=== PATIENT | female | born 1950 | race Caucasian/White ===

== ENCOUNTER 2020-04-03 06:45 | Inpatient (IN) | payer MEDICARE, OTHER ==
[2020-04-03] VITALS (10 sets, daily range): BP systolic 113–146; BP diastolic 40–51
[~2020-04-03] VITALS: Ht 165.1 cm; Wt 140.3 kg
[2020-04-03] MEDS ORDERED: MORPHINE SULFATE 4 MG/ML VIAL. IV ONE ×2 (07:30→09:15)
[2020-04-03] MEDS ORDERED: ONDANSETRON PF 4 MG/2 ML VIAL. IVP ONE (07:30)
[2020-04-03 07:42] LABS: BILIRUBIN,URINE MODERATE (NEG); CLARITY,URINE CLOUDY; COLOR,URINE AMBER; NITRITE,URINE NEGATIVE (NEG); PROTEIN,URINE 100 mg/dL (NEG-TRACE)
[2020-04-03 07:45] LABS: BASO # 0.1 x10^3/uL (0.0-0.2); BASO % 1 % (0-3); EOS % 1 % (0-3); HEMOGLOBIN 14.9 g/dL (12.0-15.5); LYMPH # 1.5 x10^3/uL (1.0-4.8); LYMPH % 19 % (24-48); MEAN CORPUSCULAR HEMOGLOBIN 31 pg (25-35); MEAN CORPUSCULAR HGB CONC 34 g/dL (31-37); MEAN CORPUSCULAR VOLUME 90 fL (79-100); MONO # 0.7 x10^3/uL (0.0-1.1); MONO % 8 % (0-9); NEUT # 5.8 x10^3/uL (1.8-7.7); NEUT % 72 % (31-73); PLATELET COUNT 244 x10^3/uL (140-400); RED BLOOD COUNT 4.87 x10^6/uL (3.50-5.40); RED CELL DISTRIBUTION WIDTH 14.2 % (11.5-14.5)
[2020-04-03 07:52] LABS: BACTERIA,URINE MANY /HPF (0-FEW); HYALINE CASTS, URINE FEW /HPF; RBC,URINE OCC /HPF (0-2); SQUAMOUS EPITHELIAL CELL,UR MANY /LPF; WBC,URINE 20-40 /HPF (0-4)
[2020-04-03 07:54] LABS: PROTHROMBIN TIME PATIENT 14.1 SEC (11.7-14.0)
[2020-04-03 08:05] LABS: CALCIUM 10.2 mg/dL (8.5-10.1); CREATININE 1.7 mg/dL (0.6-1.0); GFR 29.8
[2020-04-03 08:09] LABS: ALBUMIN 3.9 g/dL (3.4-5.0); TOTAL BILIRUBIN 1.9 mg/dL (0.2-1.0); TOTAL PROTEIN 7.7 g/dL (6.4-8.2)
--- NOTE | 2020-04-03 08:19 | PHYS DOC ---
Past Medical History Past Medical History: Diabetes-Type II, Hypertension, Renal Failure Past Surgical History: No Surgical History Smoking Status: Never Smoker Alcohol Use: None General Adult EDM: Chief Complaint: NAUSEA/VOMITING/DIARRHA HPI: HPI: Patient is a 69 year old female who presents to ER today for evaluation of epigastric abdominal pain associate with nausea vomiting for the last 3 days. Patient says she ate some chicken quesadilla on Thursday night then she started having symptoms. Patient denies any diarrhea, no bowel movement for the last 2 days. Patient denies any fever, no cough, no chest pain. Patient denies being exposed to anybody who tested positive for COVID-19. Review of Systems: Review of Systems: Constitutional: Denies fever or chills. [] Eyes: Denies change in visual acuity. [] HENT: Denies nasal congestion or sore throat. [] Respiratory: Denies cough or shortness of breath. [] Cardiovascular: Denies chest pain or edema. [] GI: Positive for abdominal pain, nausea and vomiting. No diarrhea : Denies dysuria. [] Musculoskeletal: Denies back pain or joint pain. [] Integument: Denies rash. [] Neurologic: Denies headache, focal weakness or sensory changes. [] Endocrine: Denies polyuria or polydipsia. [] Lymphatic: Denies swollen glands. [] Psychiatric: Denies depression or anxiety. [] Heart Score: Risk Factors: Risk Factors: DM, Current or recent (<one month) smoker, HTN, HLP, family history of CAD, obesity. Risk Scores: Score 0 - 3: 2.5% MACE over next 6 weeks - Discharge Home Score 4 - 6: 20.3% MACE over next 6 weeks - Admit for Clinical Observation Score 7 - 10: 72.7% MACE over next 6 weeks - Early Invasive Strategies Current Medications: Current Medications Medications (Trade) Dose Ordered Sig/Bethany Start Time Stop Time Status Last Admin Dose Admin Morphine Sulfate (Morphine Sulfate) 4 mg 1X ONCE 04/03/20 07:30 04/03/20 07:31 DC 04/03/20 07:47 4 MG Ondansetron HCl (Zofran) 8 mg 1X ONCE 04/03/20 07:30 04/03/20 07:31 DC 04/03/20 07:44 8 MG Allergies: Allergies: Allergies Coded Allergies Type Severity Reaction Last Updated Verified No Known Drug Allergies 04/03/20 No Physical Exam: PE: Constitutional: Well developed, well nourished, no acute distress, non-toxic appearance. [] HENT: Normocephalic, atraumatic, bilateral external ears normal, oropharynx moist, no oral exudates, nose normal. [] Eyes: PERRLA, EOMI, conjunctiva normal, no discharge. [] Neck: Normal range of motion, no tenderness, supple, no stridor. [] Cardiovascular:Heart rate regular rhythm, no murmur [] Lungs & Thorax: Bilateral breath sounds clear to auscultation [] Abdomen: Decrease Bowel sounds , soft, there is tenderness in epigastric area, no masses, no pulsatile masses. [] Skin: Warm, dry, no erythema, no rash. [] Back: No tenderness, no CVA tenderness. [] Extremities: No tenderness, no cyanosis, no clubbing, ROM intact, no edema. [] Neurologic: Alert and oriented X 3, normal motor function, normal sensory function, no focal deficits noted. [] Psychologic: Affect normal, judgement normal, mood normal. [] Current Patient Data: Labs: Laboratory Tests Test 04/03/20 07:20 04/03/20 07:36 Urine Collection Type Void Urine Color Maria Teresa Urine Clarity Cloudy Urine pH 5.0 (<5.0-8.0) Urine Specific [place] >=1.030 (1.000-1.030) Urine Protein 100 mg/dL (NEG-TRACE) Urine Glucose (UA) Negative mg/dL (NEG) Urine Ketones (Stick) Negative mg/dL (NEG) Urine Blood Negative (NEG) Urine Nitrite Negative (NEG) Urine Bilirubin Moderate (NEG) Urine Urobilinogen Dipstick 1.0 mg/dL (0.2 mg/dL) Urine Leukocyte Esterase Small (NEG) Urine RBC Occ /HPF (0-2) Urine WBC 20-40 /HPF (0-4) Urine Squamous Epithelial Cells Many /LPF Urine Bacteria Many /HPF (0-FEW) Urine Hyaline Casts Few /HPF White Blood Count 8.0 x10^3/uL (4.0-11.0) Red Blood Count 4.87 x10^6/uL (3.50-5.40) Hemoglobin 14.9 g/dL (12.0-15.5) Hematocrit 44.0 % (36.0-47.0) Mean Corpuscular Volume 90 fL (79-100) Mean Corpuscular Hemoglobin 31 pg (25-35) Mean Corpuscular Hemoglobin Concent 34 g/dL (31-37) Red Cell Distribution Width 14.2 % (11.5-14.5) Platelet Count 244 x10^3/uL (140-400) Neutrophils (%) (Auto) 72 % (31-73) Lymphocytes (%) (Auto) 19 % (24-48) L Monocytes (%) (Auto) 8 % (0-9) Eosinophils (%) (Auto) 1 % (0-3) Basophils (%) (Auto) 1 % (0-3) Neutrophils # (Auto) 5.8 x10^3/uL (1.8-7.7) Lymphocytes # (Auto) 1.5 x10^3/uL (1.0-4.8) Monocytes # (Auto) 0.7 x10^3/uL (0.0-1.1) Eosinophils # (Auto) 0.0 x10^3/uL (0.0-0.7) Basophils # (Auto) 0.1 x10^3/uL (0.0-0.2) Prothrombin Time 14.1 SEC (11.7-14.0) H Prothrombin Time INR 1.1 (0.8-1.1) Activated Partial Thromboplast Time 23 SEC (24-38) L Sodium Level 137 mmol/L (136-145) Potassium Level 4.0 mmol/L (3.5-5.1) Chloride Level 97 mmol/L (98-107) L Carbon Dioxide Level 25 mmol/L (21-32) Anion Gap 15 (6-14) H Blood Urea Nitrogen 36 mg/dL (7-20) H Creatinine 1.7 mg/dL (0.6-1.0) H Estimated GFR (Cockcroft-Gault) 29.8 BUN/Creatinine Ratio 21 (6-20) H Glucose Level 259 mg/dL (70-99) H Calcium Level 10.2 mg/dL (8.5-10.1) H Magnesium Level 2.0 mg/dL (1.8-2.4) Total Bilirubin 1.9 mg/dL (0.2-1.0) H Aspartate Amino Transferase (AST) 26 U/L (15-37) Alanine Aminotransferase (ALT) 30 U/L (14-59) Alkaline Phosphatase 37 U/L (46-116) L Troponin I Quantitative < 0.017 ng/mL (0.000-0.055) Total Protein 7.7 g/dL (6.4-8.2) Albumin 3.9 g/dL (3.4-5.0) Albumin/Globulin Ratio 1.0 (1.0-1.7) Lipase 124 U/L (73-393) Laboratory Tests 04/03/20 07:36 Laboratory Tests 04/03/20 07:36 Vital Signs: Vital Signs Date Time Temp Pulse Resp B/P (MAP) Pulse Ox O2 Delivery O2 Flow Rate FiO2 04/03/20 07:47 18 91 Room Air 04/03/20 07:07 98.9 92 190/74 (112) 98.9 EKG: EKG: [] Radiology/Procedures: Radiology/Procedures: [][facility] [address] [place], [place] [id number] IMAGING REPORT Signed PATIENT: RICHIE PERALTA ACCOUNT: [id number] : 1950 LOCATION: ER AGE: 69 SEX: F EXAM STATUS: REG ER ORD. PHYSICIAN: ELMIRA DIEHL DO REASON: ABDOMINAL PAIN WITH NAUSEA AND VOMITING SINCE 3 DAYS AGO PROCEDURE: CT ABDOMEN PELVIS WO CONTRAST EXAM: Abdomen and pelvis CT without intravenous contrast. HISTORY: Pain. Nausea and vomiting. TECHNIQUE: Computed tomographic images of the abdomen and pelvis were obtained without contrast. Multiplanar reformatting was performed. *One or more of the following individualized dose reduction techniques were utilized for this examination: 1. Automated exposure control. 2. Adjustment of the mA and/or kV according to patient size. 3. Use of iterative reconstruction technique. COMPARISON: None. FINDINGS: Evaluation of the lower thorax demonstrates linear left lower lobe atelectasis or scarring. There is posterior dependent atelectasis. There is trace pericardial fluid. No suspicious hepatic lesion is seen. The gallbladder is surgically absent. There is common bile duct dilatation likely due to reservoir effect status post cholecystectomy. The pancreas, spleen, adrenal glands and kidneys are unremarkable. There are distended air and fluid-filled loops of proximal and mid small bowel extending to a large infraumbilical hernia containing a loop of small bowel in segment of transverse colon, consistent with mechanical bowel obstruction. There is stranding within the herniated fat suggesting a component of fat incarceration. The hernia defect measures approximately 6.5 cm in maximum dimension and the hernia sac measures 18 cm in maximum dimension. There is also a fat-containing umbilical hernia measuring 3.3 cm and fat-containing left periumbilical hernia measuring 5.6 cm. There are few small fat-containing supraumbilical hernias. The small bowel is decompressed distal to the level of the hernia. There is gas and stool within the colon. The urinary bladder is empty. The uterus is absent. No adnexal mass is seen. There is no lymphadenopathy. The aorta is normal in caliber. There are degenerative changes involving the spine and both hips. IMPRESSION: 1. Small bowel obstruction secondary to a large infraumbilical hernia containing fat, a loop of small bowel and segment of transverse colon. The hernia sac measures 18 cm in maximum dimension. 2. Small fat-containing umbilical, periumbilical and supra umbilical hernias. Electronically signed by: Winter Sampson MD (04/03/2020 8:51 AM) [id number] DICTATED and SIGNED BY: WINTER SAMPSON MD DATE: 04/03/20 0851 Course & Med Decision Making: Course & Med Decision Making Pertinent Labs and Imaging studies reviewed. (See chart for details) Patient is a 69-year-old female who was evaluated in the ER due to abdominal pain with nausea vomiting. CT scan her abdomen pelvis showed she has a small bowel obstruction due to umbilical hernia. Patient will be admitted to hospital, general surgery be consulted. NG tube was placed. Dragon Disclaimer: Dragon Disclaimer: This electronic medical record was generated, in whole or in part, using a voice recognition dictation system. Departure Departure Impression: Primary Impression: Small bowel obstruction Additional Impression: Umbilical hernia Disposition: ADMITTED INPATIENT Admitting Physician: HERMILO (Dr. Davis) Condition: STABLE Referrals: TRACIE PRITCHARD MD (PCP) Justicifation of Admission Dx: Justifications for Admission: Justification of Admission Dx: N/A ELMIRA DIEHL DO Apr 03, 2020 08:19
--- NOTE | 2020-04-03 08:54 | RAD ---
EXAM: Abdomen and pelvis CT without intravenous contrast. HISTORY: Pain. Nausea and vomiting. TECHNIQUE: Computed tomographic images of the abdomen and pelvis were obtained without contrast. Multiplanar reformatting was performed. *One or more of the following individualized dose reduction techniques were utilized for this examination: 1. Automated exposure control. 2. Adjustment of the mA and/or kV according to patient size. 3. Use of iterative reconstruction technique. COMPARISON: None. FINDINGS: Evaluation of the lower thorax demonstrates linear left lower lobe atelectasis or scarring. There is posterior dependent atelectasis. There is trace pericardial fluid. No suspicious hepatic lesion is seen. The gallbladder is surgically absent. There is common bile duct dilatation likely due to reservoir effect status post cholecystectomy. The pancreas, spleen, adrenal glands and kidneys are unremarkable. There are distended air and fluid-filled loops of proximal and mid small bowel extending to a large infraumbilical hernia containing a loop of small bowel in segment of transverse colon, consistent with mechanical bowel obstruction. There is stranding within the herniated fat suggesting a component of fat incarceration. The hernia defect measures approximately 6.5 cm in maximum dimension and the hernia sac measures 18 cm in maximum dimension. There is also a fat-containing umbilical hernia measuring 3.3 cm and fat-containing left periumbilical hernia measuring 5.6 cm. There are few small fat-containing supraumbilical hernias. The small bowel is decompressed distal to the level of the hernia. There is gas and stool within the colon. The urinary bladder is empty. The uterus is absent. No adnexal mass is seen. There is no lymphadenopathy. The aorta is normal in caliber. There are degenerative changes involving the spine and both hips. IMPRESSION: 1. Small bowel obstruction secondary to a large infraumbilical hernia containing fat, a loop of small bowel and segment of transverse colon. The hernia sac measures 18 cm in maximum dimension. 2. Small fat-containing umbilical, periumbilical and supra umbilical hernias. Electronically signed by: Winter Rocha MD (04/03/2020 8:51 AM) [id number]
[2020-04-03] MEDS ORDERED: BENZOCAINE ONE 20% MUCOSAL SPRAY. (09:11)
[2020-04-03] MEDS: IV NORMAL SALINE 1000ML BAG 1,000 ML IV SCH (09:22)
[2020-04-03] MEDS ORDERED: BENZOCAINE ONE 20% MUCOSAL SPRAY. MM (09:30)
--- NOTE | 2020-04-03 09:41 | EKG ---
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
[2020-04-03] MEDS: MORPHINE SULFATE 4 MG/ML VIAL. IV PRN ×3 (10:10→23:52)
[2020-04-03] MEDS: ONDANSETRON PF 4 MG/2 ML VIAL. IV PRN ×2 (10:10→17:57)
--- NOTE | 2020-04-03 10:11 | RAD ---
Plain film abdominal examination consisting of 1 view(s) of the abdomen. History: Nasogastric tube placement Comparison: None. Nasogastric tube is seen with tip in the body the stomach. There are multiple prominent loops of small bowel measuring up to 4.1 cm suggesting ileus or obstruction. Electronically signed by: Renato Mendiola MD (04/03/2020 10:08 AM) [id number]
--- NOTE | 2020-04-03 10:14 | PDOC2 ---
WILLY LAGUNAS AGRICULTURAL EQUIPMENT DESIGN ENGINEER 04/03/20 1014: CONSULT Date of Consult Date of Consult DATE: 04/03/20 TIME: 10:01 Reason for Consult Reason for Consult: bowel obstruction Referring Physician Referring Physician: ER Identification/Chief Complaint Chief Complaint abdominal pain Source Source: Chart review, Patient History of Present Illness Reason for Visit: Abdominal pain, nausea and emesis since Thursday. Has been becoming p rogressively worse. Last stool Thursday. Not eating, not improving. Does have hx of umbo hernia repair with mesh Past Medical History Cardiovascular: HTN Endocrine: Diabetes Past Surgical History Past Surgical History: Appendectomy, Cholecystectomy, Hernia Repair Family History Family History: Other (noncontributory to current illness ) Social History No ALCOHOL: none Drugs: None Lives: with Family Current Problem List Problem List Problems Medical Problems: (1) Small bowel obstruction Status: Acute (2) Umbilical hernia Status: Acute Current Medications Current Medications Current Medications Ondansetron HCl (Zofran) 8 mg 1X ONCE IVP Last administered on 04/03/20at 07:44; Start 04/03/20 at 07:30; Stop 04/03/20 at 07:31; Status DC Morphine Sulfate (Morphine Sulfate) 4 mg 1X ONCE IV Last administered on 04/03/20at 07:47; Start 04/03/20 at 07:30; Stop 04/03/20 at 07:31; Status DC Morphine Sulfate (Morphine Sulfate) 4 mg 1X ONCE IV Last administered on 04/03/20at 09:17; Start 04/03/20 at 09:15; Stop 04/03/20 at 09:16; Status DC Benzocaine (Hurricaine One) 1 spray STK-MED ONCE .ROUTE ; Start 04/03/20 at 09:11; Stop 04/03/20 at 09:11; Status DC Benzocaine (Hurricaine One) 1 spray 1X ONCE MM Last administered on 04/03/20at 09:21; Start 04/03/20 at 09:30; Stop 04/03/20 at 09:31; Status DC Ondansetron HCl (Zofran) 4 mg PRN Q8HRS PRN IV NAUSEA/VOMITING; Start 04/03/20 at 09:30; Stop 04/04/20 at 09:29 Morphine Sulfate (Morphine Sulfate) 4 mg PRN Q2HR PRN IV PAIN; Start 04/03/20 at 09:30; Stop 04/04/20 at 09:29 Sodium Chloride 1,000 ml @ 75 mls/hr [id number] IV Last administered on 04/03/20at 09:22; Start 04/03/20 at 09:17; Stop 04/04/20 at 09:16 Allergies Allergies: Coded Allergies: No Known Drug Allergies (Unverified , 04/03/20) ROS General: YES: Fatigue, Malaise; No: Chills PSYCHOLOGICAL ROS: No: Anxiety, Depression Eyes: No Blurry vision, No Double vision HEENT: No: Heacaches, Sore Throat Hematological and Lymphatic: No: Bleeding Problems, Blood Clots Respiratory: No: Cough, Shortness of breath Cardiovascular: No Chest Pain, No Palpitations Gastrointestinal: Yes Other (ses hpi) Genitourinary: No Dysuria, No Retention Musculoskeletal: No Joint Pain, No Muscle Pain Neurological: No Impaired Coord/balance, No Numbness/Tingling Skin: No Pruritus, No Rash Physical Exam General: Alert, Oriented X3, Cooperative HEENT: Other (NG in place) Lungs: Clear to auscultation, Normal air movement Heart: Regular rate, Normal S1, Normal S2 Abdomen: Soft, Other (obese abdomen, Ttp umbilical area, unable to palpate hernia ) Extremities: No clubbing, No cyanosis Skin: No rashes, No breakdown Neuro: Normal speech, Sensation intact Psych/Mental Status: Mental status NL, Mood NL MUSCULOSKELETAL: No deformity, No swelling Vitals VITALS Vital Signs Date Time Temp Pulse Resp B/P (MAP) Pulse Ox O2 Delivery O2 Flow Rate FiO2 04/03/20 09:17 18 94 Room Air 04/03/20 07:07 98.9 92 190/74 (112) 98.9 Labs Labs Laboratory Tests Test 04/03/20 07:20 04/03/20 07:36 Urine Collection Type Void Urine Color Maria Teresa Urine Clarity Cloudy Urine pH 5.0 (<5.0-8.0) Urine Specific [place] >=1.030 (1.000-1.030) Urine Protein 100 mg/dL (NEG-TRACE) Urine Glucose (UA) Negative mg/dL (NEG) Urine Ketones (Stick) Negative mg/dL (NEG) Urine Blood Negative (NEG) Urine Nitrite Negative (NEG) Urine Bilirubin Moderate (NEG) Urine Urobilinogen Dipstick 1.0 mg/dL (0.2 mg/dL) Urine Leukocyte Esterase Small (NEG) Urine RBC Occ /HPF (0-2) Urine WBC 20-40 /HPF (0-4) Urine Squamous Epithelial Cells Many /LPF Urine Bacteria Many /HPF (0-FEW) Urine Hyaline Casts Few /HPF White Blood Count 8.0 x10^3/uL (4.0-11.0) Red Blood Count 4.87 x10^6/uL (3.50-5.40) Hemoglobin 14.9 g/dL (12.0-15.5) Hematocrit 44.0 % (36.0-47.0) Mean Corpuscular Volume 90 fL (79-100) Mean Corpuscular Hemoglobin 31 pg (25-35) Mean Corpuscular Hemoglobin Concent 34 g/dL (31-37) Red Cell Distribution Width 14.2 % (11.5-14.5) Platelet Count 244 x10^3/uL (140-400) Neutrophils (%) (Auto) 72 % (31-73) Lymphocytes (%) (Auto) 19 % (24-48) Monocytes (%) (Auto) 8 % (0-9) Eosinophils (%) (Auto) 1 % (0-3) Basophils (%) (Auto) 1 % (0-3) Neutrophils # (Auto) 5.8 x10^3/uL (1.8-7.7) Lymphocytes # (Auto) 1.5 x10^3/uL (1.0-4.8) Monocytes # (Auto) 0.7 x10^3/uL (0.0-1.1) Eosinophils # (Auto) 0.0 x10^3/uL (0.0-0.7) Basophils # (Auto) 0.1 x10^3/uL (0.0-0.2) Prothrombin Time 14.1 SEC (11.7-14.0) Prothromb Time International Ratio 1.1 (0.8-1.1) Activated Partial Thromboplast Time 23 SEC (24-38) Sodium Level 137 mmol/L (136-145) Potassium Level 4.0 mmol/L (3.5-5.1) Chloride Level 97 mmol/L (98-107) Carbon Dioxide Level 25 mmol/L (21-32) Anion Gap 15 (6-14) Blood Urea Nitrogen 36 mg/dL (7-20) Creatinine 1.7 mg/dL (0.6-1.0) Estimated GFR (Cockcroft-Gault) 29.8 BUN/Creatinine Ratio 21 (6-20) Glucose Level 259 mg/dL (70-99) Calcium Level 10.2 mg/dL (8.5-10.1) Magnesium Level 2.0 mg/dL (1.8-2.4) Total Bilirubin 1.9 mg/dL (0.2-1.0) Aspartate Amino Transf (AST/SGOT) 26 U/L (15-37) Alanine Aminotransferase (ALT/SGPT) 30 U/L (14-59) Alkaline Phosphatase 37 U/L (46-116) Troponin I Quantitative < 0.017 ng/mL (0.000-0.055) Total Protein 7.7 g/dL (6.4-8.2) Albumin 3.9 g/dL (3.4-5.0) Albumin/Globulin Ratio 1.0 (1.0-1.7) Lipase 124 U/L (73-393) Laboratory Tests Test 04/03/20 07:20 04/03/20 07:36 Urine Collection Type Void Urine Color Maria Teresa Urine Clarity Cloudy Urine pH 5.0 (<5.0-8.0) Urine Specific [place] >=1.030 (1.000-1.030) Urine Protein 100 mg/dL (NEG-TRACE) Urine Glucose (UA) Negative mg/dL (NEG) Urine Ketones (Stick) Negative mg/dL (NEG) Urine Blood Negative (NEG) Urine Nitrite Negative (NEG) Urine Bilirubin Moderate (NEG) Urine Urobilinogen Dipstick 1.0 mg/dL (0.2 mg/dL) Urine Leukocyte Esterase Small (NEG) Urine RBC Occ /HPF (0-2) Urine WBC 20-40 /HPF (0-4) Urine Squamous Epithelial Cells Many /LPF Urine Bacteria Many /HPF (0-FEW) Urine Hyaline Casts Few /HPF White Blood Count 8.0 x10^3/uL (4.0-11.0) Red Blood Count 4.87 x10^6/uL (3.50-5.40) Hemoglobin 14.9 g/dL (12.0-15.5) Hematocrit 44.0 % (36.0-47.0) Mean Corpuscular Volume 90 fL (79-100) Mean Corpuscular Hemoglobin 31 pg (25-35) Mean Corpuscular Hemoglobin Concent 34 g/dL (31-37) Red Cell Distribution Width 14.2 % (11.5-14.5) Platelet Count 244 x10^3/uL (140-400) Neutrophils (%) (Auto) 72 % (31-73) Lymphocytes (%) (Auto) 19 % (24-48) Monocytes (%) (Auto) 8 % (0-9) Eosinophils (%) (Auto) 1 % (0-3) Basophils (%) (Auto) 1 % (0-3) Neutrophils # (Auto) 5.8 x10^3/uL (1.8-7.7) Lymphocytes # (Auto) 1.5 x10^3/uL (1.0-4.8) Monocytes # (Auto) 0.7 x10^3/uL (0.0-1.1) Eosinophils # (Auto) 0.0 x10^3/uL (0.0-0.7) Basophils # (Auto) 0.1 x10^3/uL (0.0-0.2) Prothrombin Time 14.1 SEC (11.7-14.0) Prothromb Time International Ratio 1.1 (0.8-1.1) Activated Partial Thromboplast Time 23 SEC (24-38) Sodium Level 137 mmol/L (136-145) Potassium Level 4.0 mmol/L (3.5-5.1) Chloride Level 97 mmol/L (98-107) Carbon Dioxide Level 25 mmol/L (21-32) Anion Gap 15 (6-14) Blood Urea Nitrogen 36 mg/dL (7-20) Creatinine 1.7 mg/dL (0.6-1.0) Estimated GFR (Cockcroft-Gault) 29.8 BUN/Creatinine Ratio 21 (6-20) Glucose Level 259 mg/dL (70-99) Calcium Level 10.2 mg/dL (8.5-10.1) Magnesium Level 2.0 mg/dL (1.8-2.4) Total Bilirubin 1.9 mg/dL (0.2-1.0) Aspartate Amino Transf (AST/SGOT) 26 U/L (15-37) Alanine Aminotransferase (ALT/SGPT) 30 U/L (14-59) Alkaline Phosphatase 37 U/L (46-116) Troponin I Quantitative < 0.017 ng/mL (0.000-0.055) Total Protein 7.7 g/dL (6.4-8.2) Albumin 3.9 g/dL (3.4-5.0) Albumin/Globulin Ratio 1.0 (1.0-1.7) Lipase 124 U/L (73-393) Assessment/Plan Assessment/Plan SBO, related to hernia obese -BMI 49.9 NG, bowel rest covid taken will have Dr Clarke review TANYA CLARKE MD 04/03/20 1347: CONSULT Assessment/Plan Assessment/Plan Patient seen and examined by me. Morbidly obese female with complaints of nausea vomiting for 2 days. Seen in the emergency department CT scan was performed which showed incarcerated incisional hernia from previous umbilical hernia repair. Plan for robotic assisted laparoscopic ventral hernia repair with mesh possible open this is all explained to the patient. Agree with Baldev assessment and plan WILLY LAGUNAS APRN Apr 03, 2020 10:14 TANYA CLARKE MD Apr 03, 2020 13:47
[2020-04-03] MEDS ORDERED: PROCHLORPERAZINE 10 MG/2 ML VIAL. IV PRN (10:45)
[2020-04-03] MEDS ORDERED: LIDOCAINE 1% PF 2 ML VIAL. ID PRN (10:45)
[2020-04-03] MEDS ORDERED: IV RINGERS,LACTATED 1000ML 1,000 ML IV SCH (10:45)
[2020-04-03] MEDS ORDERED: HYDROmorphone 2 MG/ML VIAL IV ONE (11:00)
[2020-04-03] MEDS ORDERED: DEXAMETHASONE SOD PHOS 4 MG/ML VIAL ONE (12:52)
[2020-04-03] MEDS ORDERED: PROPOFOL 10 MG/ML (20ML) VIAL. IV ONE (12:52)
[2020-04-03] MEDS ORDERED: ONDANSETRON PF 4 MG/2 ML VIAL. ONE (12:52)
[2020-04-03] MEDS ORDERED: fentaNYL PF VIAL 100 MCG/2 ML VIAL ONE ×3 (12:52→17:23)
[2020-04-03] MEDS ORDERED: LIDOCAINE 1% PF 5 ML VIAL. ONE (12:52)
[2020-04-03] MEDS ORDERED: ROCURONIUM 100 MG/10 ML VIAL. ONE (12:54)
[2020-04-03] MEDS ORDERED: BUPIVACAINE-EPI 0.25%-1:200000 MPF 30 ML VIAL. ONE (13:08)
[2020-04-03] MEDS ORDERED: MINERAL OIL for SURGERY 10 ML VIAL. MC ONE (13:08)
[2020-04-03] MEDS ORDERED: ceFAZolin SODIUM 3 GM in IV DEXTROSE 5% 100ML 100 ML IV ONE (14:00)
[2020-04-03] MEDS ORDERED: GLYCOPYRROLATE 1 MG/5 ML VIAL. ONE (14:31)
[2020-04-03] MEDS ORDERED: SEVOFLURANE > 120 MINUTES. IH ONE (14:38)
[2020-04-03] MEDS ORDERED: ROCURONIUM 50 MG/5 ML VIAL. ONE (14:53)
--- NOTE | 2020-04-03 16:07 | PDOC4 ---
Operative Note Operative Note Date: April [id number] at 1600 Preoperative diagnosis: Incarcerated recurrent incisional hernia Postoperative diagnosis: Same Procedure: Diagnostic laparoscopy converted to open laparotomy with repair of incarcerated ventral hernia and mesh placement Surgeon: Julio Specimen: Hernia sac Dictation: Patient is a 69-year-old female admitted to the hospital with abdominal pain nausea vomiting CT scan showing a incarcerated incisional hernia causing bowel obstruction. Procedure of laparoscopic repair of hernia was explained to the patient detail risk-benefit were also discussed including bleeding infection possibility of open repair. Patient seemed to understand and gave both verbal and written consent to have the procedure performed. Patient was taken to the operating room placed in supine position general anesthesia was initiated once patient was sleeping intubated her abdomen was prepped and draped usual sterile fashion using ChloraPrep. An area in the left upper quadrant was injected quarter percent Marcaine with epinephrine incision was made with 11 blade scalpel and a 5 mm Visiport was placed under direct physician in the abdomen creating pneumoperitoneum at this point a 5 mm camera was placed within the abdomen was noted there was quite a few adhesions to the anterior abdominal wall as well as bowel within the anterior abdominal wall. 2 more ports were placed under direct visualization and some of the adhesions were taken down with blunt and sharp dissection it was determined at this point there was too much bowel incarcerated within the hernia defect as well as adhesions made it difficult to do laparoscopically was felt at this point was converted to open procedure. Midline incision was made with 10 blade scalpel is carried down through the subcutaneous tissues electrocautery right hemostasis encountering the hernia sac this was cleared off its adherent tissues the hernia sac was then opened with Metzenbaum scissors and further open electrocautery and great care to protect the bowel within the hernia sac. The hernia sac was then excised with electrocautery and sent for pathology the hernia contents were reduced to the abdomen and the fascial defect was closed with a running looped 0 PDS. Once this was closed a phasic's 6 x 8 mesh was placed over the closure this was sewn into place with single interrupted 0 Ethibond. The deep subcutaneous layer was then closed with running 0 Vicryl subcutaneous layer more superficially was closed with a 3-0 Vicryl skin was reapproximated for subcuticular Monocryl Mastisol Steri-Strips and 4 x 4's Medipore tape were applied as a dressing. Patient was awakened and extubated in operating room taken to recovery in stable condition all sponge instrument needle counts listed as correct estimated blood loss 30 mL. TANYA CLARKE MD Apr 03, 2020 16:07
[2020-04-03] MEDS ORDERED: MORPHINE SULFATE 4 MG/ML VIAL. IV PRN (16:30)
[2020-04-03] MEDS ORDERED: HYDROmorphone 2 MG/ML VIAL IV PRN (16:30)
[2020-04-03] MEDS ORDERED: INSULIN LISPRO 100 UNIT/ML 3ML VIAL for OP,RR ONLY. SQ PRN (16:30)
[2020-04-03] MEDS ORDERED: MORPHINE SULFATE 2 MG/ML VIAL. IV PRN (16:30)
[2020-04-03] MEDS ORDERED: fentaNYL PF VIAL 100 MCG/2 ML VIAL IV PRN (16:30)
[2020-04-03] MEDS: fentaNYL PF VIAL 100 MCG/2 ML VIAL IV PRN ×2 (17:26→17:34)
[2020-04-03] MEDS ORDERED: LISI-334 PO (18:12)
[2020-04-03] MEDS ORDERED: DULA0.75 SQ (18:12)
[2020-04-03] MEDS ORDERED: ATOR20TA PO (18:12)
[2020-04-03] MEDS ORDERED: INSU100C4 SQ (18:12)
[2020-04-03] MEDS ORDERED: INSU100I13 SQ (18:12)
[2020-04-04 03:00] VITALS: BP 105/41
[2020-04-04] MEDS: ONDANSETRON PF 4 MG/2 ML VIAL. IV PRN (03:19)
[2020-04-04] MEDS: IV NORMAL SALINE 1000ML BAG 1,000 ML IV SCH (03:23)
[2020-04-04 07:05] VITALS: BP 120/43
[2020-04-04] MEDS: MORPHINE SULFATE 4 MG/ML VIAL. IV PRN (07:28)
--- NOTE | 2020-04-04 09:49 | PDOC ---
SURGICAL PROGRESS NOTE Subjective Patient doing well this morning minimal pain no nausea Vital Signs Vital Signs Date Time Temp Pulse Resp B/P (MAP) Pulse Ox O2 Delivery O2 Flow Rate FiO2 04/04/20 08:11 Nasal Cannula 3.0 04/04/20 07:28 94 04/04/20 07:05 98.9 84 20 120/43 (68) 98.9 I&O Intake and Output 04/04/20 07:00 Intake Total 3700 ml Output Total 1060 ml Balance 2640 ml Intake Oral 0 ml IV Total 2100 ml Other 1600 ml Output Urine Total 230 ml Gastric Drainage Total 800 ml Estimated Blood Loss 30 ml PATIENT HAS A JANE: Yes General: Alert, Oriented X3, Cooperative, mild distress Abdomen: Normal bowel sounds, Soft, Other (Mild incisional tenderness wound clean dry and intact) Labs Laboratory Tests Test 04/03/20 07:20 04/03/20 07:36 04/03/20 11:14 04/03/20 14:48 Urine Collection Type Void Urine Color Maria Teresa Urine Clarity Cloudy Urine pH 5.0 (<5.0-8.0) Urine Specific [place] >=1.030 (1.000-1.030) Urine Protein 100 mg/dL (NEG-TRACE) Urine Glucose (UA) Negative mg/dL (NEG) Urine Ketones (Stick) Negative mg/dL (NEG) Urine Blood Negative (NEG) Urine Nitrite Negative (NEG) Urine Bilirubin Moderate (NEG) Urine Urobilinogen Dipstick 1.0 mg/dL (0.2 mg/dL) Urine Leukocyte Esterase Small (NEG) Urine RBC Occ /HPF (0-2) Urine WBC 20-40 /HPF (0-4) Urine Squamous Epithelial Cells Many /LPF Urine Bacteria Many /HPF (0-FEW) Urine Hyaline Casts Few /HPF White Blood Count 8.0 x10^3/uL (4.0-11.0) Red Blood Count 4.87 x10^6/uL (3.50-5.40) Hemoglobin 14.9 g/dL (12.0-15.5) Hematocrit 44.0 % (36.0-47.0) Mean Corpuscular Volume 90 fL (79-100) Mean Corpuscular Hemoglobin 31 pg (25-35) Mean Corpuscular Hemoglobin Concent 34 g/dL (31-37) Red Cell Distribution Width 14.2 % (11.5-14.5) Platelet Count 244 x10^3/uL (140-400) Neutrophils (%) (Auto) 72 % (31-73) Lymphocytes (%) (Auto) 19 % (24-48) Monocytes (%) (Auto) 8 % (0-9) Eosinophils (%) (Auto) 1 % (0-3) Basophils (%) (Auto) 1 % (0-3) Neutrophils # (Auto) 5.8 x10^3/uL (1.8-7.7) Lymphocytes # (Auto) 1.5 x10^3/uL (1.0-4.8) Monocytes # (Auto) 0.7 x10^3/uL (0.0-1.1) Eosinophils # (Auto) 0.0 x10^3/uL (0.0-0.7) Basophils # (Auto) 0.1 x10^3/uL (0.0-0.2) Prothrombin Time 14.1 SEC (11.7-14.0) Prothromb Time International Ratio 1.1 (0.8-1.1) Activated Partial Thromboplast Time 23 SEC (24-38) Sodium Level 137 mmol/L (136-145) Potassium Level 4.0 mmol/L (3.5-5.1) Chloride Level 97 mmol/L (98-107) Carbon Dioxide Level 25 mmol/L (21-32) Anion Gap 15 (6-14) Blood Urea Nitrogen 36 mg/dL (7-20) Creatinine 1.7 mg/dL (0.6-1.0) Estimated GFR (Cockcroft-Gault) 29.8 BUN/Creatinine Ratio 21 (6-20) Glucose Level 259 mg/dL (70-99) Calcium Level 10.2 mg/dL (8.5-10.1) Magnesium Level 2.0 mg/dL (1.8-2.4) Total Bilirubin 1.9 mg/dL (0.2-1.0) Aspartate Amino Transf (AST/SGOT) 26 U/L (15-37) Alanine Aminotransferase (ALT/SGPT) 30 U/L (14-59) Alkaline Phosphatase 37 U/L (46-116) Troponin I Quantitative < 0.017 ng/mL (0.000-0.055) Total Protein 7.7 g/dL (6.4-8.2) Albumin 3.9 g/dL (3.4-5.0) Albumin/Globulin Ratio 1.0 (1.0-1.7) Lipase 124 U/L (73-393) SARS-CoV-2 Antigen (Rapid) Negative (NEGATIVE) Glucose (Fingerstick) 224 mg/dL (70-99) Test 04/03/20 16:46 04/03/20 21:10 04/04/20 07:46 Glucose (Fingerstick) 197 mg/dL (70-99) 225 mg/dL (70-99) 271 mg/dL (70-99) Laboratory Tests Test 04/03/20 11:14 04/03/20 14:48 04/03/20 16:46 04/03/20 21:10 SARS-CoV-2 Antigen (Rapid) Negative (NEGATIVE) Glucose (Fingerstick) 224 mg/dL (70-99) 197 mg/dL (70-99) 225 mg/dL (70-99) Test 04/04/20 07:46 Glucose (Fingerstick) 271 mg/dL (70-99) Problem List Problems Medical Problems: (1) Small bowel obstruction Status: Acute (2) Umbilical hernia Status: Acute Assessment/Plan Status post laparotomy with repair of recurrent incisional hernia Will DC NG tube Jane awaiting return of bowel function Supportive care Justicifation of Admission Dx: Justifications for Admission: Justification of Admission Dx: N/A TANYA CLARKE MD Apr 04, 2020 09:49
[2020-04-04 11:00] VITALS: BP 126/46
--- NOTE | 2020-04-04 11:37 | NUR ---
SW following. Discussed with RN, pt from home with , had emergency surgery yesterday. Pt is NPO, awaiting return of bowel function. RN advised no SW needs at this time, SW will continue to follow.
--- NOTE | 2020-04-04 12:40 | NUR ---
Dr. Susan staples re: BS [id number].
--- NOTE | 2020-04-04 12:56 | NUR ---
Dr. Lowe paged re: BS [id number]
--- NOTE | 2020-04-04 13:00 | NUR ---
Dr. Lowe returned call, telephone orders received.
[2020-04-04] MEDS ORDERED: DEXTROSE 50% 25 GM / 50ML DISP.SYRIN. IV PRN (13:15)
[2020-04-04] MEDS: INSULIN LISPRO 300 UNITS/3 ML VIAL. SQ SCH ×2 (13:25→17:54)
[2020-04-04 15:00] VITALS: BP 115/37
--- NOTE | 2020-04-04 17:29 | PDOC1 ---
History and Physical Date of Admission Date of Admission 04/04/2020 Identification/Chief Complaint Chief Complaint Hoda zelaya Source Source: Chart review, Patient History of Present Illness History of Present Illness Patient is is 69-year-old female with past medical history of diabetes and essential hypertension who was in her usual state of health until Thursday when she started experiencing abdominal discomfort associated with nausea and emesis. The pain is crampy in nature 10 out of 10 intensity intermittently, the patient had an associated nausea and vomiting no diarrhea no dietary transgressions have been reported. The patient denied any travels outside this area. Patient unfortunately has a history of an umbilical hernia repair with a mesh which most likely is the culprit for the bowel obstruction that is noted on imaging studies. Patient was taken to the OR by her surgical services assistant quite prompt and she has been seen postoperative. At the time of this note the patient is in no acute distress she is quite happy that her NG tube has been discontinued. Patient denied any fever chills diaphoresis no headache no upper respiratory tract infection symptoms no cough sputum production no chest pain or palpitations have been voiced. The patient denies any urinary symptoms, patient feels better compared to admission. Plan of care has been explained detail and all of her concerns were addressed to the best of my abilities Past Medical History Cardiovascular: HTN Endocrine: Diabetes Past Surgical History Past Surgical History: Appendectomy, Cholecystectomy, Hernia Repair Family History Family History: Other (noncontributory to current illness ) Social History Smoke: No ALCOHOL: none Drugs: None Current Problem List Problem List Problems Medical Problems: (1) Small bowel obstruction Status: Acute (2) Umbilical hernia Status: Acute Current Medications Current Medications Current Medications Medications (Trade) Dose Ordered Sig/Bethany Start Time Stop Time Status Last Admin Dose Admin Benzocaine (Hurricaine One) 1 spray 1X ONCE 04/03/20 09:30 04/03/20 09:31 DC 04/03/20 09:21 1 SPRAY Bupivacaine HCl/ Epinephrine Bitart (Sensorcaine-Epi 0.25%-1:[id number] Mpf) 30 ml STK-MED ONCE 04/03/20 13:08 04/03/20 13:08 DC 04/03/20 14:28 10 ML Cefazolin Sodium 3 gm/Dextrose 100 ml @ 200 mls/hr 1X PREOP ONCE 04/03/20 14:00 04/03/20 14:29 DC 04/03/20 14:22 200 MLS/HR Dexamethasone Sodium Phosphate (Decadron) 4 mg STK-MED ONCE 04/03/20 12:52 04/03/20 12:52 DC Dextrose (Dextrose 50%-Water Syringe) 12.5 gm PRN Q15MIN PRN 04/04/20 13:15 Fentanyl Citrate (Fentanyl 2ml Vial) 100 mcg STK-MED ONCE 04/03/20 17:23 04/03/20 17:24 DC Glycopyrrolate (Robinul) 1 mg STK-MED ONCE 04/03/20 14:31 04/03/20 14:31 DC Hydromorphone HCl (Dilaudid) 0.5 mg PRN Q10MIN PRN 04/03/20 16:30 04/04/20 16:29 DC Insulin Human Lispro (HumaLOG VIAL for OP,RR ONLY) 0-10 units PRN Q1HR PRN 04/03/20 16:30 04/04/20 16:29 DC 04/03/20 17:09 4 UNIT Insulin Human Lispro (HumaLOG) 0-7 UNITS TIDWMEALS 04/04/20 13:10 04/04/20 13:25 3 UNITS Lidocaine HCl (Xylocaine-Mpf 1% 2ml Vial) 2 ml PRN 1X PRN 04/03/20 10:45 04/04/20 10:44 DC Lidocaine HCl (Xylocaine-Mpf 1% 5ml Vial) 5 ml STK-MED ONCE 04/03/20 12:52 04/03/20 12:52 DC Mineral Oil (Muri-Lube) 10 ml STK-MED ONCE 04/03/20 13:08 04/03/20 13:08 DC Morphine Sulfate (Morphine Sulfate) 4 mg PRN Q10MIN PRN 04/03/20 16:30 04/04/20 16:29 DC Ondansetron HCl (Zofran) 4 mg STK-MED ONCE 04/03/20 12:52 04/03/20 12:52 DC Prochlorperazine Edisylate (Compazine) 5 mg PACU PRN PRN 04/03/20 10:45 04/04/20 10:44 DC Propofol (Diprivan) 200 mg STK-MED ONCE 04/03/20 12:52 04/03/20 12:52 DC Ringer's Solution 1,000 ml @ 30 mls/hr Q24H 04/03/20 10:45 04/03/20 22:44 DC 04/03/20 13:00 30 MLS/HR Rocuronium [place] (Zemuron) 50 mg STK-MED ONCE 04/03/20 14:53 04/03/20 14:53 DC Sevoflurane (Ultane) 90 ml STK-MED ONCE 04/03/20 14:38 04/03/20 14:38 DC Sodium Chloride 1,000 ml @ 75 mls/hr [id number] 04/03/20 09:17 04/04/20 09:16 DC 04/04/20 03:23 75 MLS/HR Allergies Allergies Allergies Coded Allergies Type Severity Reaction Last Updated Verified No Known Drug Allergies 04/03/20 No ROS Review of System CONSTITUTIONAL: No fever or chills EYES: No recent changes SKIN: No rash or itching CARDIOVASCULAR: No chest pain, syncope, palpitations, or edema RESPIRATORY: No SOB or cough GASTROINTESTINAL: No nausea, vomiting or abdominal pain NEUROLOGICAL: No headaches or weakness ENDOCRINE: No cold or heat intolerance GENITOURINARY: No urgency or frequency of urination MUSCULOSKELETAL: No back pain or joint pain LYMPHATICS: No enlarged lymph nodes PSYCHIATRIC: No anxiety or depression Physical Exam Physical Exam GEN.: No apparent distress. Alert and oriented. HEENT: Head is normocephalic, atraumatic NECK: Supple. LUNGS: Clear to auscultation. HEART: RRR, S1, S2 present. Peripheral pulses intact ABDOMEN: Soft, nontender. Positive bowel sounds. EXTREMITIES: Without any cyanosis. NEUROLOGIC: Normal speech, normal tone PSYCHIATRIC: Normal affect, normal mood. SKIN: No ulcerations Vitals Vitals Vital Signs Date Time Temp Pulse Resp B/P (MAP) Pulse Ox O2 Delivery O2 Flow Rate FiO2 04/04/20 15:00 99.4 20 20 115/37 (63) 92 Nasal Cannula 99.4 04/04/20 08:11 3.0 Labs Labs Laboratory Tests Test 04/03/20 07:20 04/03/20 07:36 04/03/20 11:14 04/03/20 14:48 Urine Collection Type Void Urine Color Maria Teresa Urine Clarity Cloudy Urine pH 5.0 (<5.0-8.0) Urine Specific [place] >=1.030 (1.000-1.030) Urine Protein 100 mg/dL (NEG-TRACE) Urine Glucose (UA) Negative mg/dL (NEG) Urine Ketones (Stick) Negative mg/dL (NEG) Urine Blood Negative (NEG) Urine Nitrite Negative (NEG) Urine Bilirubin Moderate (NEG) Urine Urobilinogen Dipstick 1.0 mg/dL (0.2 mg/dL) Urine Leukocyte Esterase Small (NEG) Urine RBC Occ /HPF (0-2) Urine WBC 20-40 /HPF (0-4) Urine Squamous Epithelial Cells Many /LPF Urine Bacteria Many /HPF (0-FEW) Urine Hyaline Casts Few /HPF White Blood Count 8.0 x10^3/uL (4.0-11.0) Red Blood Count 4.87 x10^6/uL (3.50-5.40) Hemoglobin 14.9 g/dL (12.0-15.5) Hematocrit 44.0 % (36.0-47.0) Mean Corpuscular Volume 90 fL (79-100) Mean Corpuscular Hemoglobin 31 pg (25-35) Mean Corpuscular Hemoglobin Concent 34 g/dL (31-37) Red Cell Distribution Width 14.2 % (11.5-14.5) Platelet Count 244 x10^3/uL (140-400) Neutrophils (%) (Auto) 72 % (31-73) Lymphocytes (%) (Auto) 19 % (24-48) Monocytes (%) (Auto) 8 % (0-9) Eosinophils (%) (Auto) 1 % (0-3) Basophils (%) (Auto) 1 % (0-3) Neutrophils # (Auto) 5.8 x10^3/uL (1.8-7.7) Lymphocytes # (Auto) 1.5 x10^3/uL (1.0-4.8) Monocytes # (Auto) 0.7 x10^3/uL (0.0-1.1) Eosinophils # (Auto) 0.0 x10^3/uL (0.0-0.7) Basophils # (Auto) 0.1 x10^3/uL (0.0-0.2) Prothrombin Time 14.1 SEC (11.7-14.0) Prothromb Time International Ratio 1.1 (0.8-1.1) Activated Partial Thromboplast Time 23 SEC (24-38) Sodium Level 137 mmol/L (136-145) Potassium Level 4.0 mmol/L (3.5-5.1) Chloride Level 97 mmol/L (98-107) Carbon Dioxide Level 25 mmol/L (21-32) Anion Gap 15 (6-14) Blood Urea Nitrogen 36 mg/dL (7-20) Creatinine 1.7 mg/dL (0.6-1.0) Estimated GFR (Cockcroft-Gault) 29.8 BUN/Creatinine Ratio 21 (6-20) Glucose Level 259 mg/dL (70-99) Calcium Level 10.2 mg/dL (8.5-10.1) Magnesium Level 2.0 mg/dL (1.8-2.4) Total Bilirubin 1.9 mg/dL (0.2-1.0) Aspartate Amino Transf (AST/SGOT) 26 U/L (15-37) Alanine Aminotransferase (ALT/SGPT) 30 U/L (14-59) Alkaline Phosphatase 37 U/L (46-116) Troponin I Quantitative < 0.017 ng/mL (0.000-0.055) Total Protein 7.7 g/dL (6.4-8.2) Albumin 3.9 g/dL (3.4-5.0) Albumin/Globulin Ratio 1.0 (1.0-1.7) Lipase 124 U/L (73-393) SARS-CoV-2 Antigen (Rapid) Negative (NEGATIVE) Glucose (Fingerstick) 224 mg/dL (70-99) Test 04/03/20 16:46 04/03/20 21:10 04/04/20 07:46 04/04/20 11:48 Glucose (Fingerstick) 197 mg/dL (70-99) 225 mg/dL (70-99) 271 mg/dL (70-99) 270 mg/dL (70-99) Laboratory Tests Test 04/03/20 21:10 04/04/20 07:46 04/04/20 11:48 Glucose (Fingerstick) 225 mg/dL (70-99) 271 mg/dL (70-99) 270 mg/dL (70-99) VTE Prophylaxis Ordered VTE Prophylaxis Devices: Yes VTE Pharmacological Prophylaxi: No Assessment/Plan Assessment/Plan Small bowel obstruction Umbilical hernia Status post laparotomy with repair of recurrent incisional hernia Essential hypertension Diabetes mellitus type 2 insulin required Morbid obesity with a BMI of 51 Plan Diet as per product consultant Awaiting for return of bowel function Encourage ambulation Incentive spirometry Resume home medication Reassess in the a.m. Further recommendations based on the clinical course DVT prophylaxis with SCD and teds Justicifation of Admission Dx: Justifications for Admission: Justification of Admission Dx: N/A JG DOMINGUEZ MD Apr 04, 2020 17:29
[2020-04-04 19:53] VITALS: BP 137/48
[2020-04-04 23:00] VITALS: BP 141/50
[2020-04-05 03:00] VITALS: BP 107/49
[2020-04-05 07:00] VITALS: BP 135/49
[2020-04-05] MEDS: INSULIN LISPRO 300 UNITS/3 ML VIAL. SQ SCH ×3 (08:00→18:03)
--- NOTE | 2020-04-05 09:14 | NUR ---
SW following. Discussed with RN, pt still npo, awaiting bowel function. Pt now requiring 4L oxygen, uses CPAP at home. SW will continue to follow.
[2020-04-05 10:50] LABS: BASO % 1 % (0-3); EOS # 0.1 x10^3/uL (0.0-0.7); EOS % 1 % (0-3); HEMATOCRIT 32.5 % (36.0-47.0); HEMOGLOBIN 11.2 g/dL (12.0-15.5); LYMPH # 0.9 x10^3/uL (1.0-4.8); LYMPH % 11 % (24-48); MEAN CORPUSCULAR HEMOGLOBIN 32 pg (25-35); MEAN CORPUSCULAR HGB CONC 34 g/dL (31-37); MEAN CORPUSCULAR VOLUME 92 fL (79-100); MONO % 13 % (0-9); NEUT # 5.9 x10^3/uL (1.8-7.7); NEUT % 74 % (31-73); PLATELET COUNT 181 x10^3/uL (140-400); RED BLOOD COUNT 3.53 x10^6/uL (3.50-5.40); RED CELL DISTRIBUTION WIDTH 14.5 % (11.5-14.5); WHITE BLOOD COUNT 7.9 x10^3/uL (4.0-11.0)
--- NOTE | 2020-04-05 10:58 | PDOC ---
SURGICAL PROGRESS NOTE Subjective Patient doing quite well did have some trouble sleeping last night minimal abdominal pain passing flatus no nausea Vital Signs Vital Signs Date Time Temp Pulse Resp B/P (MAP) Pulse Ox O2 Delivery O2 Flow Rate FiO2 04/05/20 08:00 Nasal Cannula 4.0 04/05/20 07:00 98.3 82 16 135/49 (77) 93 98.3 I&O Intake and Output 04/05/20 07:00 Intake Total 625 ml Output Total 300 ml Balance 325 ml Intake Oral 100 ml Other 525 ml Gastric Drainage Total 300 ml # Voids 4 PATIENT HAS A JANE: No General: Alert, Oriented X3, Cooperative, mild distress Abdomen: Normal bowel sounds, Soft, Other (Mild incisional tenderness wounds clean dry and intact) Labs Laboratory Tests Test 04/03/20 11:14 04/03/20 14:48 04/03/20 16:46 04/03/20 21:10 SARS-CoV-2 Antigen (Rapid) Negative (NEGATIVE) Glucose (Fingerstick) 224 mg/dL (70-99) 197 mg/dL (70-99) 225 mg/dL (70-99) Test 04/04/20 07:46 04/04/20 11:48 04/04/20 17:30 04/04/20 20:39 Glucose (Fingerstick) 271 mg/dL (70-99) 270 mg/dL (70-99) 284 mg/dL (70-99) 317 mg/dL (70-99) Test 04/05/20 10:45 White Blood Count 7.9 x10^3/uL (4.0-11.0) Red Blood Count 3.53 x10^6/uL (3.50-5.40) Hemoglobin 11.2 g/dL (12.0-15.5) Hematocrit 32.5 % (36.0-47.0) Mean Corpuscular Volume 92 fL (79-100) Mean Corpuscular Hemoglobin 32 pg (25-35) Mean Corpuscular Hemoglobin Concent 34 g/dL (31-37) Red Cell Distribution Width 14.5 % (11.5-14.5) Platelet Count 181 x10^3/uL (140-400) Neutrophils (%) (Auto) 74 % (31-73) Lymphocytes (%) (Auto) 11 % (24-48) Monocytes (%) (Auto) 13 % (0-9) Eosinophils (%) (Auto) 1 % (0-3) Basophils (%) (Auto) 1 % (0-3) Neutrophils # (Auto) 5.9 x10^3/uL (1.8-7.7) Lymphocytes # (Auto) 0.9 x10^3/uL (1.0-4.8) Monocytes # (Auto) 1.0 x10^3/uL (0.0-1.1) Eosinophils # (Auto) 0.1 x10^3/uL (0.0-0.7) Basophils # (Auto) 0.0 x10^3/uL (0.0-0.2) Laboratory Tests Test 04/04/20 11:48 04/04/20 17:30 04/04/20 20:39 04/05/20 10:45 Glucose (Fingerstick) 270 mg/dL (70-99) 284 mg/dL (70-99) 317 mg/dL (70-99) White Blood Count 7.9 x10^3/uL (4.0-11.0) Red Blood Count 3.53 x10^6/uL (3.50-5.40) Hemoglobin 11.2 g/dL (12.0-15.5) Hematocrit 32.5 % (36.0-47.0) Mean Corpuscular Volume 92 fL (79-100) Mean Corpuscular Hemoglobin 32 pg (25-35) Mean Corpuscular Hemoglobin Concent 34 g/dL (31-37) Red Cell Distribution Width 14.5 % (11.5-14.5) Platelet Count 181 x10^3/uL (140-400) Neutrophils (%) (Auto) 74 % (31-73) Lymphocytes (%) (Auto) 11 % (24-48) Monocytes (%) (Auto) 13 % (0-9) Eosinophils (%) (Auto) 1 % (0-3) Basophils (%) (Auto) 1 % (0-3) Neutrophils # (Auto) 5.9 x10^3/uL (1.8-7.7) Lymphocytes # (Auto) 0.9 x10^3/uL (1.0-4.8) Monocytes # (Auto) 1.0 x10^3/uL (0.0-1.1) Eosinophils # (Auto) 0.1 x10^3/uL (0.0-0.7) Basophils # (Auto) 0.0 x10^3/uL (0.0-0.2) Problem List Problems Medical Problems: (1) Small bowel obstruction Status: Acute (2) Umbilical hernia Status: Acute Assessment/Plan Status post exploratory laparotomy with repair of incarcerated strangulated hernia Advance diet to clear liquids encourage activity walking Justicifation of Admission Dx: Justifications for Admission: Justification of Admission Dx: N/A TANYA CLARKE MD Apr 05, 2020 10:58
[2020-04-05 11:00] VITALS: BP 137/37
[2020-04-05 11:19] LABS: CALCIUM 7.8 mg/dL (8.5-10.1); CREATININE 4.2 mg/dL (0.6-1.0); GFR 10.5; POTASSIUM 4.7 mmol/L (3.5-5.1)
--- NOTE | 2020-04-05 14:40 | PDOC ---
PROGRESS NOTES Chief Complaint Chief Complaint Assessment/Plan Small bowel obstruction Umbilical hernia Status post laparotomy with repair of recurrent incisional hernia Essential hypertension Diabetes mellitus type 2 insulin required Morbid obesity with a BMI of 51 Plan Diet as per b2b sales consultant Awaiting for return of bowel function Encourage ambulation Incentive spirometry Resume home medication Reassess in the a.m. Further recommendations based on the clinical course DVT prophylaxis with SCD and teds History of Present Illness History of Present Illness No acute events reported overnight, case discussed with nursing staff patient in no acute distress no complaints during my visitPatient had a reassurance has been provided very restless night and was unable to sleep due to her sleep apnea most likely. Diet has been advanced to clear liquids by b2b sales consultant. All concerns addressed to the best of my abilities Vitals Vitals Vital Signs Date Time Temp Pulse Resp B/P (MAP) Pulse Ox O2 Delivery O2 Flow Rate FiO2 04/05/20 11:00 97.9 74 18 137/37 (70) 96 Room Air 97.9 04/05/20 08:00 4.0 Physical Exam General: Alert, Oriented X3, Cooperative, mild distress Heart: Regular rate, Normal S1, Normal S2 Abdomen: Normal bowel sounds, Soft, Other (Mild incisional tenderness wounds clean dry and intact) Extremities: No clubbing, No cyanosis Skin: No rashes, No breakdown Labs LABS Laboratory Tests Test 04/04/20 17:30 04/04/20 20:39 04/05/20 10:45 04/05/20 11:32 Glucose (Fingerstick) 284 mg/dL (70-99) 317 mg/dL (70-99) 323 mg/dL (70-99) White Blood Count 7.9 x10^3/uL (4.0-11.0) Red Blood Count 3.53 x10^6/uL (3.50-5.40) Hemoglobin 11.2 g/dL (12.0-15.5) Hematocrit 32.5 % (36.0-47.0) Mean Corpuscular Volume 92 fL (79-100) Mean Corpuscular Hemoglobin 32 pg (25-35) Mean Corpuscular Hemoglobin Concent 34 g/dL (31-37) Red Cell Distribution Width 14.5 % (11.5-14.5) Platelet Count 181 x10^3/uL (140-400) Neutrophils (%) (Auto) 74 % (31-73) Lymphocytes (%) (Auto) 11 % (24-48) Monocytes (%) (Auto) 13 % (0-9) Eosinophils (%) (Auto) 1 % (0-3) Basophils (%) (Auto) 1 % (0-3) Neutrophils # (Auto) 5.9 x10^3/uL (1.8-7.7) Lymphocytes # (Auto) 0.9 x10^3/uL (1.0-4.8) Monocytes # (Auto) 1.0 x10^3/uL (0.0-1.1) Eosinophils # (Auto) 0.1 x10^3/uL (0.0-0.7) Basophils # (Auto) 0.0 x10^3/uL (0.0-0.2) Sodium Level 135 mmol/L (136-145) Potassium Level 4.7 mmol/L (3.5-5.1) Chloride Level 99 mmol/L (98-107) Carbon Dioxide Level 25 mmol/L (21-32) Anion Gap 11 (6-14) Blood Urea Nitrogen 69 mg/dL (7-20) Creatinine 4.2 mg/dL (0.6-1.0) Estimated GFR (Cockcroft-Gault) 10.5 Glucose Level 325 mg/dL (70-99) Calcium Level 7.8 mg/dL (8.5-10.1) Review of Systems Review of Systems Pertinent as per HPI otherwise 14 point view of system is negative Assessment and Plan Assessmemt and Plan Problems Medical Problems: (1) Small bowel obstruction Status: Acute (2) Umbilical hernia Status: Acute Comment Review of Relevant I have reviewed the following items lisbeth (where applicable) has been applied. Labs Laboratory Tests Test 04/03/20 14:48 04/03/20 16:46 04/03/20 21:10 04/04/20 07:46 Glucose (Fingerstick) 224 mg/dL (70-99) 197 mg/dL (70-99) 225 mg/dL (70-99) 271 mg/dL (70-99) Test 04/04/20 11:48 04/04/20 17:30 04/04/20 20:39 04/05/20 10:45 Glucose (Fingerstick) 270 mg/dL (70-99) 284 mg/dL (70-99) 317 mg/dL (70-99) White Blood Count 7.9 x10^3/uL (4.0-11.0) Red Blood Count 3.53 x10^6/uL (3.50-5.40) Hemoglobin 11.2 g/dL (12.0-15.5) Hematocrit 32.5 % (36.0-47.0) Mean Corpuscular Volume 92 fL (79-100) Mean Corpuscular Hemoglobin 32 pg (25-35) Mean Corpuscular Hemoglobin Concent 34 g/dL (31-37) Red Cell Distribution Width 14.5 % (11.5-14.5) Platelet Count 181 x10^3/uL (140-400) Neutrophils (%) (Auto) 74 % (31-73) Lymphocytes (%) (Auto) 11 % (24-48) Monocytes (%) (Auto) 13 % (0-9) Eosinophils (%) (Auto) 1 % (0-3) Basophils (%) (Auto) 1 % (0-3) Neutrophils # (Auto) 5.9 x10^3/uL (1.8-7.7) Lymphocytes # (Auto) 0.9 x10^3/uL (1.0-4.8) Monocytes # (Auto) 1.0 x10^3/uL (0.0-1.1) Eosinophils # (Auto) 0.1 x10^3/uL (0.0-0.7) Basophils # (Auto) 0.0 x10^3/uL (0.0-0.2) Sodium Level 135 mmol/L (136-145) Potassium Level 4.7 mmol/L (3.5-5.1) Chloride Level 99 mmol/L (98-107) Carbon Dioxide Level 25 mmol/L (21-32) Anion Gap 11 (6-14) Blood Urea Nitrogen 69 mg/dL (7-20) Creatinine 4.2 mg/dL (0.6-1.0) Estimated GFR (Cockcroft-Gault) 10.5 Glucose Level 325 mg/dL (70-99) Calcium Level 7.8 mg/dL (8.5-10.1) Test 04/05/20 11:32 Glucose (Fingerstick) 323 mg/dL (70-99) Laboratory Tests Test 04/04/20 17:30 04/04/20 20:39 04/05/20 10:45 04/05/20 11:32 Glucose (Fingerstick) 284 mg/dL (70-99) 317 mg/dL (70-99) 323 mg/dL (70-99) White Blood Count 7.9 x10^3/uL (4.0-11.0) Red Blood Count 3.53 x10^6/uL (3.50-5.40) Hemoglobin 11.2 g/dL (12.0-15.5) Hematocrit 32.5 % (36.0-47.0) Mean Corpuscular Volume 92 fL (79-100) Mean Corpuscular Hemoglobin 32 pg (25-35) Mean Corpuscular Hemoglobin Concent 34 g/dL (31-37) Red Cell Distribution Width 14.5 % (11.5-14.5) Platelet Count 181 x10^3/uL (140-400) Neutrophils (%) (Auto) 74 % (31-73) Lymphocytes (%) (Auto) 11 % (24-48) Monocytes (%) (Auto) 13 % (0-9) Eosinophils (%) (Auto) 1 % (0-3) Basophils (%) (Auto) 1 % (0-3) Neutrophils # (Auto) 5.9 x10^3/uL (1.8-7.7) Lymphocytes # (Auto) 0.9 x10^3/uL (1.0-4.8) Monocytes # (Auto) 1.0 x10^3/uL (0.0-1.1) Eosinophils # (Auto) 0.1 x10^3/uL (0.0-0.7) Basophils # (Auto) 0.0 x10^3/uL (0.0-0.2) Sodium Level 135 mmol/L (136-145) Potassium Level 4.7 mmol/L (3.5-5.1) Chloride Level 99 mmol/L (98-107) Carbon Dioxide Level 25 mmol/L (21-32) Anion Gap 11 (6-14) Blood Urea Nitrogen 69 mg/dL (7-20) Creatinine 4.2 mg/dL (0.6-1.0) Estimated GFR (Cockcroft-Gault) 10.5 Glucose Level 325 mg/dL (70-99) Calcium Level 7.8 mg/dL (8.5-10.1) Microbiology 04/03/20 Urine Culture - Final, Complete Medications Current Medications Ondansetron HCl (Zofran) 8 mg 1X ONCE IVP Last administered on 04/03/20at 07:44; Start 04/03/20 at 07:30; Stop 04/03/20 at 07:31; Status DC Morphine Sulfate (Morphine Sulfate) 4 mg 1X ONCE IV Last administered on 04/03/20at 07:47; Start 04/03/20 at 07:30; Stop 04/03/20 at 07:31; Status DC Morphine Sulfate (Morphine Sulfate) 4 mg 1X ONCE IV Last administered on 04/03/20at 09:17; Start 04/03/20 at 09:15; Stop 04/03/20 at 09:16; Status DC Benzocaine (Hurricaine One) 1 spray STK-MED ONCE .ROUTE ; Start 04/03/20 at 09:11; Stop 04/03/20 at 09:11; Status DC Benzocaine (Hurricaine One) 1 spray 1X ONCE MM Last administered on 04/03/20at 09:21; Start 04/03/20 at 09:30; Stop 04/03/20 at 09:31; Status DC Ondansetron HCl (Zofran) 4 mg PRN Q8HRS PRN IV NAUSEA/VOMITING Last administered on 04/04/20at 03:19; Start 04/03/20 at 09:30; Stop 04/04/20 at 09:29; Status DC Morphine Sulfate (Morphine Sulfate) 4 mg PRN Q2HR PRN IV PAIN Last administered on 04/04/20at 07:28; Start 04/03/20 at 09:30; Stop 04/04/20 at 09:29; Status DC Sodium Chloride 1,000 ml @ 75 mls/hr [id number] IV Last administered on 04/04/20at 03:23; Start 04/03/20 at 09:17; Stop 04/04/20 at 09:16; Status DC Ringer's Solution 1,000 ml @ 30 mls/hr Q24H IV Last administered on 04/03/20at 13:00; Start 04/03/20 at 10:45; Stop 04/03/20 at 22:44; Status DC Lidocaine HCl (Xylocaine-Mpf 1% 2ml Vial) 2 ml PRN 1X PRN ID PRIOR TO IV START; Start 04/03/20 at 10:45; Stop 04/04/20 at 10:44; Status DC Prochlorperazine Edisylate (Compazine) 5 mg PACU PRN PRN IV NAUSEA, MRX1; Start 04/03/20 at 10:45; Stop 04/04/20 at 10:44; Status DC Hydromorphone HCl (Dilaudid) 1 mg 1X ONCE IV ; Start 04/03/20 at 11:00; Stop 04/03/20 at 11:01; Status DC Propofol (Diprivan) 200 mg STK-MED ONCE IV ; Start 04/03/20 at 12:52; Stop 04/03/20 at 12:52; Status DC Lidocaine HCl (Xylocaine-Mpf 1% 5ml Vial) 5 ml STK-MED ONCE .ROUTE ; Start 04/03/20 at 12:52; Stop 04/03/20 at 12:52; Status DC Ondansetron HCl (Zofran) 4 mg STK-MED ONCE .ROUTE ; Start 04/03/20 at 12:52; Stop 04/03/20 at 12:52; Status DC Dexamethasone Sodium Phosphate (Decadron) 4 mg STK-MED ONCE .ROUTE ; Start 04/03/20 at 12:52; Stop 04/03/20 at 12:52; Status DC Fentanyl Citrate (Fentanyl 2ml Vial) 100 mcg STK-MED ONCE .ROUTE ; Start 04/03/20 at 12:52; Stop 04/03/20 at 12:53; Status DC Rocuronium [place] (Zemuron) 100 mg STK-MED ONCE .ROUTE ; Start 04/03/20 at 12:54; Stop 04/03/20 at 12:54; Status DC Mineral Oil (Muri-Lube) 10 ml STK-MED ONCE MC ; Start 04/03/20 at 13:08; Stop 04/03/20 at 13:08; Status DC Bupivacaine HCl/ Epinephrine Bitart (Sensorcaine-Epi 0.25%-1:718389 Mpf) 30 ml STK-MED ONCE .ROUTE Last administered on 04/03/20at 14:28; Start 04/03/20 at 13:08; Stop 04/03/20 at 13:08; Status DC Cefazolin Sodium 3 gm/Dextrose 100 ml @ 200 mls/hr 1X PREOP ONCE IV Last administered on 04/03/20at 14:22; Start 04/03/20 at 14:00; Stop 04/03/20 at 14:29; Status DC Glycopyrrolate (Robinul) 1 mg STK-MED ONCE .ROUTE ; Start 04/03/20 at 14:31; Stop 04/03/20 at 14:31; Status DC Sevoflurane (Ultane) 90 ml STK-MED ONCE IH ; Start 04/03/20 at 14:38; Stop 04/03/20 at 14:38; Status DC Rocuronium [place] (Zemuron) 50 mg STK-MED ONCE .ROUTE ; Start 04/03/20 at 14:53; Stop 04/03/20 at 14:53; Status DC Fentanyl Citrate (Fentanyl 2ml Vial) 100 mcg STK-MED ONCE .ROUTE ; Start 04/03/20 at 15:53; Stop 04/03/20 at 15:53; Status DC Fentanyl Citrate (Fentanyl 2ml Vial) 25 mcg PRN Q5MIN PRN IV MILD PAIN 1-3; Start 04/03/20 at 16:30; Stop 04/04/20 at 16:29; Status DC Fentanyl Citrate (Fentanyl 2ml Vial) 50 mcg PRN Q5MIN PRN IV MODERATE TO SEVERE PAIN Last administered on 04/03/20at 17:34; Start 04/03/20 at 16:30; Stop 04/04/20 at 16:29; Status DC Morphine Sulfate (Morphine Sulfate) 2 mg PRN Q10MIN PRN IV MILD PAIN 1-3; S tart 04/03/20 at 16:30; Stop 04/04/20 at 16:29; Status DC Morphine Sulfate (Morphine Sulfate) 4 mg PRN Q10MIN PRN IV Moderate to Severe Pain; Start 04/03/20 at 16:30; Stop 04/04/20 at 16:29; Status DC Hydromorphone HCl (Dilaudid) 0.5 mg PRN Q10MIN PRN IV Moderate to severe pain; Start 04/03/20 at 16:30; Stop 04/04/20 at 16:29; Status DC Insulin Human Lispro (HumaLOG VIAL for OP,RR ONLY) 0-10 units PRN Q1HR PRN SQ PER PROTOCOL Last administered on 04/03/20at 17:09; Start 04/03/20 at 16:30; Stop 04/04/20 at 16:29; Status DC Fentanyl Citrate (Fentanyl 2ml Vial) 100 mcg STK-MED ONCE .ROUTE ; Start 04/03/20 at 17:23; Stop 04/03/20 at 17:24; Status DC Insulin Human Lispro (HumaLOG) 0-7 UNITS TIDWMEALS SQ Last administered on 04/05/20at 12:19; Start 04/04/20 at 13:10 Dextrose (Dextrose 50%-Water Syringe) 12.5 gm PRN Q15MIN PRN IV SEE COMMENTS; Start 04/04/20 at 13:15 Active Scripts Active Reported Trulicity (Dulaglutide) 0.75 Mg/0.5 Ml Pen.injctr 0.75 Mg SQ WEEKLY Novolog (Insulin Aspart) 100 Unit/1 Ml Cartridge 25 Unit SQ TIDAC Lantus Solostar (Insulin Glargine,Hum.rec.anlog) 100 Unit/1 Ml Insuln.pen 60 Unit SQ QHS Lipitor (Atorvastatin Calcium) 20 Mg Tablet 1 Tab PO HS Lisinopril 20 Mg Tablet 1 Tab PO DAILY Vitals/I & O Vital Sign - Last 24 Hours 04/04/20 04/04/20 04/04/20 04/04/20 15:00 19:53 20:15 23:00 Temp 99.4 100.5 100.7 99.4 100.5 100.7 Pulse 20 97 88 Resp 20 20 20 B/P (MAP) 115/37 (63) 137/48 (77) 141/50 (80) Pulse Ox 92 95 85 O2 Delivery Nasal Cannula Room Air Nasal Cannula BiPAP/CPAP O2 Flow Rate 4.0 04/05/20 04/05/20 04/05/20 04/05/20 03:00 07:00 08:00 11:00 Temp 99.2 98.3 97.9 99.2 98.3 97.9 Pulse 86 82 74 Resp 20 16 18 B/P (MAP) 107/49 (68) 135/49 (77) 137/37 (70) Pulse Ox 95 93 96 O2 Delivery Nasal Cannula Nasal Cannula Nasal Cannula Room Air O2 Flow Rate 4.0 4.0 4.0 Intake and Output 04/04/20 04/04/20 04/05/20 15:00 23:00 07:00 Intake Total 0 ml 625 ml Output Total 300 ml Balance -300 ml 0 ml 625 ml Justicifation of Admission Dx: Justifications for Admission: Justification of Admission Dx: N/A JG DOMINGUEZ MD Apr 05, 2020 14:40
[2020-04-05 15:00] VITALS: BP 133/46
--- NOTE | 2020-04-05 18:06 | PATHOLOGY ---
[facility] Accession Number: [id number] . 01 Material submitted: . hernia - HERNIA SAC . 01 Clinical history: . Incarcerated umbilical hernia; SBO . 02 Diagnosis: Segment of mesothelial-lined fibromembranous and fibroadipose tissue, ventral hernia repair: - Hernia sac. (JPM:[facility] 04/05/2020) [facility] 04/05/2020 1336 Local . 02 Electronically signed: . Ru Wood MD, Pathologist NPI- [id number] . 01 Gross description: . The specimen is received in formalin, labeled "Ketty Ontiveros, hernia sac". Received is a segment of fibromembranous tissue with attached fibroadipose tissue measuring 13.8 x 8.1 x 2.7 cm in greatest dimensions. No distinct nodules or lesions are noted grossly. The specimen is submitted representatively in cassette A1. (CAA; 04/04/2020) [facility] 04/05/2020 1335 Local . 02 Pathologist provided ICD-10: K42.9 . 02 CPT . 618202 Specimen Comment: A courtesy copy of this report has been sent to [phone] Specimen Comment: [id number], Specimen Comment: Report sent to ,DR CUNHA,DR PRITCHARD / DR DIEHL Performed at: [facility] [address], [place] [id number] MD Mick Machado MD Phone: [phone] Performed at: 02 [facility] [address] [place], [place] [id number] MD Ru Wood MD Phone: [phone]
[2020-04-05 19:00] VITALS: BP 122/49
[2020-04-05] MEDS: ATORVASTATIN CALCIUM 20 MG TABLET PO SCH (21:00)
[2020-04-05] MEDS: INSULIN GLARGINE SYRINGE. SQ SCH (21:00)
[2020-04-05] MEDS ORDERED: INSULIN LISPRO 300 UNITS/3 ML VIAL. SQ ONE (21:00)
[2020-04-05 23:00] VITALS: BP 103/43
[2020-04-06 03:00] VITALS: BP 134/51
[2020-04-06] MEDS: ONDANSETRON PF 4 MG/2 ML VIAL. IVP PRN ×3 (04:52→19:10)
[2020-04-06 07:39] VITALS: BP 144/62
[2020-04-06] MEDS: INSULIN LISPRO 300 UNITS/3 ML VIAL. SQ SCH ×6 (07:52→17:00)
[2020-04-06] MEDS ORDERED: LISINOPRIL 20 MG TABLET PO SCH (09:00)
--- NOTE | 2020-04-06 09:11 | NUR ---
SW following. Discussed with RN, pt had a bowel movement, however is feeling very nauseas. Pt blood sugar high today. Nephrology consulted. Pt on 3L oxygen. Will need 6 minute walk prior to discharge. SW will continue to follow.
[2020-04-06 09:26] LABS: BASO % 0 % (0-3); EOS # 0.1 x10^3/uL (0.0-0.7); EOS % 1 % (0-3); HEMATOCRIT 32.8 % (36.0-47.0); HEMOGLOBIN 11.1 g/dL (12.0-15.5); LYMPH # 0.6 x10^3/uL (1.0-4.8); LYMPH % 11 % (24-48); MEAN CORPUSCULAR HEMOGLOBIN 31 pg (25-35); MEAN CORPUSCULAR HGB CONC 34 g/dL (31-37); MEAN CORPUSCULAR VOLUME 92 fL (79-100); MONO # 0.5 x10^3/uL (0.0-1.1); MONO % 9 % (0-9); NEUT # 4.6 x10^3/uL (1.8-7.7); NEUT % 79 % (31-73); PLATELET COUNT 197 x10^3/uL (140-400); RED BLOOD COUNT 3.57 x10^6/uL (3.50-5.40); RED CELL DISTRIBUTION WIDTH 14.5 % (11.5-14.5); WHITE BLOOD COUNT 5.9 x10^3/uL (4.0-11.0)
[2020-04-06 09:33] LABS: CALCIUM 8.1 mg/dL (8.5-10.1); CREATININE 2.8 mg/dL (0.6-1.0); GFR 16.8; POTASSIUM 4.8 mmol/L (3.5-5.1)
[2020-04-06] MEDS: IV NORMAL SALINE 1000ML BAG 1,000 ML IV SCH ×2 (10:28→21:10)
[2020-04-06 11:04] VITALS: BP 137/59
--- NOTE | 2020-04-06 11:38 | PDOC2 ---
CONSULT Date of Consult Date of Consult DATE: 04/06/20 TIME: 11:33 Reason for Consult Reason for Consult: YRN Referring Physician Referring Physician: GUERLINE Identification/Chief Complaint Chief Complaint ABD PAIN Source Source: Chart review, Patient History of Present Illness Reason for Visit: THIS IS A 69 YR WITH ABD PAIN AND N/V. DX WITH SBO AND UMBILICAL HERNIA REPAIR HX. SHE IS S/P REPAIR OF INCARCERATED HERNIA. NO CKD HX. ADMIT CR OF 1.7 THEN 4.2 AND TODAY 2.8. UC NEG FOR NEPHRITIS. BUT POS FOR PROTEIN. SHE DOES HAVE A HX OF DM II. NO HX OF KIDNEY OR BLADDER SURGERIES HEMATURIA DYSURIA OR FREQUENCY NOTED. NO HEMODYNAMIC INSTABILITY NOTED Past Medical History Cardiovascular: HTN ENT: No pertinent hx Renal/: No pertinent hx Endocrine: Diabetes Past Surgical History Past Surgical History: Appendectomy, Cholecystectomy, Hernia Repair Family History Family History: Diabetes, Hypertension, Other (noncontributory to current illness ) Social History No ALCOHOL: none Drugs: None Lives: with Family Current Problem List Problem List Problems Medical Problems: (1) Small bowel obstruction Status: Acute (2) Umbilical hernia Status: Acute Current Medications Current Medications Current Medications Ondansetron HCl (Zofran) 8 mg 1X ONCE IVP Last administered on 04/03/20at 07:44; Start 04/03/20 at 07:30; Stop 04/03/20 at 07:31; Status DC Morphine Sulfate (Morphine Sulfate) 4 mg 1X ONCE IV Last administered on 04/03/20at 07:47; Start 04/03/20 at 07:30; Stop 04/03/20 at 07:31; Status DC Morphine Sulfate (Morphine Sulfate) 4 mg 1X ONCE IV Last administered on 04/03/20at 09:17; Start 04/03/20 at 09:15; Stop 04/03/20 at 09:16; Status DC Benzocaine (Hurricaine One) 1 spray STK-MED ONCE .ROUTE ; Start 04/03/20 at 09:11; Stop 04/03/20 at 09:11; Status DC Benzocaine (Hurricaine One) 1 spray 1X ONCE MM Last administered on 04/03/20at 09:21; Start 04/03/20 at 09:30; Stop 04/03/20 at 09:31; Status DC Ondansetron HCl (Zofran) 4 mg PRN Q8HRS PRN IV NAUSEA/VOMITING Last administered on 04/04/20at 03:19; Start 04/03/20 at 09:30; Stop 04/04/20 at 09:29; Status DC Morphine Sulfate (Morphine Sulfate) 4 mg PRN Q2HR PRN IV PAIN Last administered on 04/04/20at 07:28; Start 04/03/20 at 09:30; Stop 04/04/20 at 09:29; Status DC Sodium Chloride 1,000 ml @ 75 mls/hr [id number] IV Last administered on 04/04/20at 03:23; Start 04/03/20 at 09:17; Stop 04/04/20 at 09:16; Status DC Ringer's Solution 1,000 ml @ 30 mls/hr Q24H IV Last administered on 04/03/20at 13:00; Start 04/03/20 at 10:45; Stop 04/03/20 at 22:44; Status DC Lidocaine HCl (Xylocaine-Mpf 1% 2ml Vial) 2 ml PRN 1X PRN ID PRIOR TO IV START; Start 04/03/20 at 10:45; Stop 04/04/20 at 10:44; Status DC Prochlorperazine Edisylate (Compazine) 5 mg PACU PRN PRN IV NAUSEA, MRX1; Start 04/03/20 at 10:45; Stop 04/04/20 at 10:44; Status DC Hydromorphone HCl (Dilaudid) 1 mg 1X ONCE IV ; Start 04/03/20 at 11:00; Stop 04/03/20 at 11:01; Status DC Propofol (Diprivan) 200 mg STK-MED ONCE IV ; Start 04/03/20 at 12:52; Stop 04/03/20 at 12:52; Status DC Lidocaine HCl (Xylocaine-Mpf 1% 5ml Vial) 5 ml STK-MED ONCE .ROUTE ; Start 04/03/20 at 12:52; Stop 04/03/20 at 12:52; Status DC Ondansetron HCl (Zofran) 4 mg STK-MED ONCE .ROUTE ; Start 04/03/20 at 12:52; Stop 04/03/20 at 12:52; Status DC Dexamethasone Sodium Phosphate (Decadron) 4 mg STK-MED ONCE .ROUTE ; Start 04/03/20 at 12:52; Stop 04/03/20 at 12:52; Status DC Fentanyl Citrate (Fentanyl 2ml Vial) 100 mcg STK-MED ONCE .ROUTE ; Start 04/03/20 at 12:52; Stop 04/03/20 at 12:53; Status DC Rocuronium [place] (Zemuron) 100 mg STK-MED ONCE .ROUTE ; Start 04/03/20 at 12:54; Stop 04/03/20 at 12:54; Status DC Mineral Oil (Muri-Lube) 10 ml STK-MED ONCE MC ; Start 04/03/20 at 13:08; Stop 04/03/20 at 13:08; Status DC Bupivacaine HCl/ Epinephrine Bitart (Sensorcaine-Epi 0.25%-1:200075 Mpf) 30 ml STK-MED ONCE .ROUTE Last administered on 04/03/20at 14:28; Start 04/03/20 at 13:08; Stop 04/03/20 at 13:08; Status DC Cefazolin Sodium 3 gm/Dextrose 100 ml @ 200 mls/hr 1X PREOP ONCE IV Last administered on 04/03/20at 14:22; Start 04/03/20 at 14:00; Stop 04/03/20 at 14:29; Status DC Glycopyrrolate (Robinul) 1 mg STK-MED ONCE .ROUTE ; Start 04/03/20 at 14:31; Stop 04/03/20 at 14:31; Status DC Sevoflurane (Ultane) 90 ml STK-MED ONCE IH ; Start 04/03/20 at 14:38; Stop 04/03/20 at 14:38; Status DC Rocuronium [place] (Zemuron) 50 mg STK-MED ONCE .ROUTE ; Start 04/03/20 at 14:53; Stop 04/03/20 at 14:53; Status DC Fentanyl Citrate (Fentanyl 2ml Vial) 100 mcg STK-MED ONCE .ROUTE ; Start 04/03/20 at 15:53; Stop 04/03/20 at 15:53; Status DC Fentanyl Citrate (Fentanyl 2ml Vial) 25 mcg PRN Q5MIN PRN IV MILD PAIN 1-3; Start 04/03/20 at 16:30; Stop 04/04/20 at 16:29; Status DC Fentanyl Citrate (Fentanyl 2ml Vial) 50 mcg PRN Q5MIN PRN IV MODERATE TO SEVERE PAIN Last administered on 04/03/20at 17:34; Start 04/03/20 at 16:30; Stop 04/04/20 at 16:29; Status DC Morphine Sulfate (Morphine Sulfate) 2 mg PRN Q10MIN PRN IV MILD PAIN 1-3; Start 04/03/20 at 16:30; Stop 04/04/20 at 16:29; Status DC Morphine Sulfate (Morphine Sulfate) 4 mg PRN Q10MIN PRN IV Moderate to Severe Pain; Start 04/03/20 at 16:30; Stop 04/04/20 at 16:29; Status DC Hydromorphone HCl (Dilaudid) 0.5 mg PRN Q10MIN PRN IV Moderate to severe pain; Start 04/03/20 at 16:30; Stop 04/04/20 at 16:29; Status DC Insulin Human Lispro (HumaLOG VIAL for OP,RR ONLY) 0-10 units PRN Q1HR PRN SQ PER PROTOCOL Last administered on 04/03/20at 17:09; Start 04/03/20 at 16:30; Stop 04/04/20 at 16:29; Status DC Fentanyl Citrate (Fentanyl 2ml Vial) 100 mcg STK-MED ONCE .ROUTE ; Start 04/03/20 at 17:23; Stop 04/03/20 at 17:24; Status DC Insulin Human Lispro (HumaLOG) 0-7 UNITS TIDWMEALS SQ Last administered on 04/06/20at 07:53; Start 04/04/20 at 13:10 Dextrose (Dextrose 50%-Water Syringe) 12.5 gm PRN Q15MIN PRN IV SEE COMMENTS; Start 04/04/20 at 13:15 Atorvastatin Calcium (Lipitor) 20 mg HS PO ; Start 04/05/20 at 21:00 Lisinopril (Prinivil) 20 mg DAILY PO ; Start 04/06/20 at 09:00; Stop 04/06/20 at 08:31; Status DC Insulin Human Lispro (HumaLOG) 8 units TIDWMEALS SQ Last administered on 04/06/20at 07:52; Start 04/06/20 at 08:00 Insulin Glargine (Lantus Syringe) 30 unit QHS SQ Last administered on 04/05/20at 21:00; Start 04/05/20 at 21:00 Insulin Human Lispro (HumaLOG) 9 units 1X ONCE SQ Last administered on 04/05/20at 21:23; Start 04/05/20 at 21:00; Stop 04/05/20 at 21:01; Status DC Ondansetron HCl (Zofran) 4 mg PRN Q4HRS PRN IVP NAUSEA/VOMITING Last administered on 04/06/20at 10:28; Start 04/06/20 at 04:45 Sodium Chloride 1,000 ml @ 75 mls/hr [id number] IV Last administered on 04/06/20at 10:28; Start 04/06/20 at 08:30 Active Scripts Active Reported Trulicity (Dulaglutide) 0.75 Mg/0.5 Ml Pen.injctr 0.75 Mg SQ WEEKLY Novolog (Insulin Aspart) 100 Unit/1 Ml Cartridge 25 Unit SQ TIDAC Lantus Solostar (Insulin Glargine,Hum.rec.anlog) 100 Unit/1 Ml Insuln.pen 60 Unit SQ QHS Lipitor (Atorvastatin Calcium) 20 Mg Tablet 1 Tab PO HS Lisinopril 20 Mg Tablet 1 Tab PO DAILY Allergies Allergies: Coded Allergies: No Known Drug Allergies (Unverified , 04/03/20) ROS General: YES: Fatigue, Malaise, Appetite PSYCHOLOGICAL ROS: YES: Anxiety, Depression Eyes: Yes Decreased vision ALLERGY AND IMMUNOLOGY: YES: Seasonal Allergies Respiratory: YES: Cough Gastrointestinal: Yes Nausea, Yes Vomiting, Yes Abdominal Pain Genitourinary: YES Incontinence Musculoskeletal: Yes Muscular Weakness Neurological: Yes Weakness Skin: Yes Dry Skin Physical Exam General: Alert, Oriented X3, Cooperative, No acute distress HEENT: Atraumatic, PERRLA Lungs: Clear to auscultation Heart: Regular rate Abdomen: Normal bowel sounds, Soft Extremities: No clubbing, No cyanosis Skin: No breakdown Neuro: Normal speech Psych/Mental Status: Mental status NL, Mood NL MUSCULOSKELETAL: No joint tenderness, No deformity, No swelling Vitals VITALS Vital Signs Date Time Temp Pulse Resp B/P (MAP) Pulse Ox O2 Delivery O2 Flow Rate FiO2 04/06/20 11:04 98.1 71 18 137/59 (85) 93 Nasal Cannula 4.0 98.1 Labs Labs Laboratory Tests Test 04/04/20 11:48 04/04/20 17:30 04/04/20 20:39 04/05/20 10:45 Glucose (Fingerstick) 270 mg/dL (70-99) 284 mg/dL (70-99) 317 mg/dL (70-99) White Blood Count 7.9 x10^3/uL (4.0-11.0) Red Blood Count 3.53 x10^6/uL (3.50-5.40) Hemoglobin 11.2 g/dL (12.0-15.5) Hematocrit 32.5 % (36.0-47.0) Mean Corpuscular Volume 92 fL (79-100) Mean Corpuscular Hemoglobin 32 pg (25-35) Mean Corpuscular Hemoglobin Concent 34 g/dL (31-37) Red Cell Distribution Width 14.5 % (11.5-14.5) Platelet Count 181 x10^3/uL (140-400) Neutrophils (%) (Auto) 74 % (31-73) Lymphocytes (%) (Auto) 11 % (24-48) Monocytes (%) (Auto) 13 % (0-9) Eosinophils (%) (Auto) 1 % (0-3) Basophils (%) (Auto) 1 % (0-3) Neutrophils # (Auto) 5.9 x10^3/uL (1.8-7.7) Lymphocytes # (Auto) 0.9 x10^3/uL (1.0-4.8) Monocytes # (Auto) 1.0 x10^3/uL (0.0-1.1) Eosinophils # (Auto) 0.1 x10^3/uL (0.0-0.7) Basophils # (Auto) 0.0 x10^3/uL (0.0-0.2) Sodium Level 135 mmol/L (136-145) Potassium Level 4.7 mmol/L (3.5-5.1) Chloride Level 99 mmol/L (98-107) Carbon Dioxide Level 25 mmol/L (21-32) Anion Gap 11 (6-14) Blood Urea Nitrogen 69 mg/dL (7-20) Creatinine 4.2 mg/dL (0.6-1.0) Estimated GFR (Cockcroft-Gault) 10.5 Glucose Level 325 mg/dL (70-99) Calcium Level 7.8 mg/dL (8.5-10.1) Test 04/05/20 11:32 04/05/20 16:46 04/05/20 20:25 04/06/20 04:57 Glucose (Fingerstick) 323 mg/dL (70-99) 305 mg/dL (70-99) 312 mg/dL (70-99) 278 mg/dL (70-99) Test 04/06/20 07:19 04/06/20 08:55 04/06/20 10:35 04/06/20 10:43 Glucose (Fingerstick) 301 mg/dL (70-99) 287 mg/dL (70-99) White Blood Count 5.9 x10^3/uL (4.0-11.0) Red Blood Count 3.57 x10^6/uL (3.50-5.40) Hemoglobin 11.1 g/dL (12.0-15.5) Hematocrit 32.8 % (36.0-47.0) Mean Corpuscular Volume 92 fL (79-100) Mean Corpuscular Hemoglobin 31 pg (25-35) Mean Corpuscular Hemoglobin Concent 34 g/dL (31-37) Red Cell Distribution Width 14.5 % (11.5-14.5) Platelet Count 197 x10^3/uL (140-400) Neutrophils (%) (Auto) 79 % (31-73) Lymphocytes (%) (Auto) 11 % (24-48) Monocytes (%) (Auto) 9 % (0-9) Eosinophils (%) (Auto) 1 % (0-3) Basophils (%) (Auto) 0 % (0-3) Neutrophils # (Auto) 4.6 x10^3/uL (1.8-7.7) Lymphocytes # (Auto) 0.6 x10^3/uL (1.0-4.8) Monocytes # (Auto) 0.5 x10^3/uL (0.0-1.1) Eosinophils # (Auto) 0.1 x10^3/uL (0.0-0.7) Basophils # (Auto) 0.0 x10^3/uL (0.0-0.2) Sodium Level 135 mmol/L (136-145) Potassium Level 4.8 mmol/L (3.5-5.1) Chloride Level 97 mmol/L (98-107) Carbon Dioxide Level 29 mmol/L (21-32) Anion Gap 9 (6-14) Blood Urea Nitrogen 70 mg/dL (7-20) Creatinine 2.8 mg/dL (0.6-1.0) Estimated GFR (Cockcroft-Gault) 16.8 Glucose Level 314 mg/dL (70-99) Calcium Level 8.1 mg/dL (8.5-10.1) Phosphorus Level 3.0 mg/dL (2.6-4.7) Urine Random Creatinine 168.9 mg/dL (Not Establ.) Laboratory Tests Test 04/05/20 16:46 04/05/20 20:25 04/06/20 04:57 04/06/20 07:19 Glucose (Fingerstick) 305 mg/dL (70-99) 312 mg/dL (70-99) 278 mg/dL (70-99) 301 mg/dL (70-99) Test 04/06/20 08:55 04/06/20 10:35 04/06/20 10:43 White Blood Count 5.9 x10^3/uL (4.0-11.0) Red Blood Count 3.57 x10^6/uL (3.50-5.40) Hemoglobin 11.1 g/dL (12.0-15.5) Hematocrit 32.8 % (36.0-47.0) Mean Corpuscular Volume 92 fL (79-100) Mean Corpuscular Hemoglobin 31 pg (25-35) Mean Corpuscular Hemoglobin Concent 34 g/dL (31-37) Red Cell Distribution Width 14.5 % (11.5-14.5) Platelet Count 197 x10^3/uL (140-400) Neutrophils (%) (Auto) 79 % (31-73) Lymphocytes (%) (Auto) 11 % (24-48) Monocytes (%) (Auto) 9 % (0-9) Eosinophils (%) (Auto) 1 % (0-3) Basophils (%) (Auto) 0 % (0-3) Neutrophils # (Auto) 4.6 x10^3/uL (1.8-7.7) Lymphocytes # (Auto) 0.6 x10^3/uL (1.0-4.8) Monocytes # (Auto) 0.5 x10^3/uL (0.0-1.1) Eosinophils # (Auto) 0.1 x10^3/uL (0.0-0.7) Basophils # (Auto) 0.0 x10^3/uL (0.0-0.2) Sodium Level 135 mmol/L (136-145) Potassium Level 4.8 mmol/L (3.5-5.1) Chloride Level 97 mmol/L (98-107) Carbon Dioxide Level 29 mmol/L (21-32) Anion Gap 9 (6-14) Blood Urea Nitrogen 70 mg/dL (7-20) Creatinine 2.8 mg/dL (0.6-1.0) Estimated GFR (Cockcroft-Gault) 16.8 Glucose Level 314 mg/dL (70-99) Calcium Level 8.1 mg/dL (8.5-10.1) Phosphorus Level 3.0 mg/dL (2.6-4.7) Urine Random Creatinine 168.9 mg/dL (Not Establ.) Glucose (Fingerstick) 287 mg/dL (70-99) Assessment/Plan Assessment/Plan IMP YRN WITH CR OF 4.8 PEAK AND NOW TO 2.8 EXTRACELLULAR VOLUME DEPLETION SBO/INCARCERATED HERNIA REPAIR DM II PLAN HOLD HOME LISINOPRIL HYDRATION WILL FOLLOW LABS IN AM PO TOLERATED DEMETRIA HSU MD Apr 06, 2020 11:38
[2020-04-06] MEDS ORDERED: ACETAMINOPHEN 325 MG TABLET. PO PRN (12:30)
--- NOTE | 2020-04-06 12:38 | RAD ---
EXAM: RENAL/RETROPERITONAL ULTRASOUND. HISTORY: Acute renal failure. COMPARISON: 04/03/2020. FINDINGS: Ultrasound of the kidneys, bladder and retroperitoneum was performed. Visualization was limited by habitus and abdominal bandaging. The right kidney measures 11.0 cm. Cortical thickness and echogenicity are grossly preserved. There is no hydronephrosis. The left kidney could not be visualized currently given scaring bowel gas and bandaging. The bladder is not visualized currently. Hyperechogenicity of the hepatic parenchyma is consistent with diffuse hepatic steatosis. IMPRESSION: 1. No hydronephrosis on the right. The left kidney cannot be visualized currently. The left kidney was unremarkable on recent CT. 2. Diffuse hepatic steatosis. Electronically signed by: Hui Chen MD (04/06/2020 12:35 PM) [id number]
--- NOTE | 2020-04-06 12:40 | PDOC ---
WILLY LAGUNAS COFFEE ATTENDANT 04/06/20 1240: SURGICAL PROGRESS NOTE Subjective some nausea this AM family present concerned about high blood sugars Vital Signs Vital Signs Date Time Temp Pulse Resp B/P (MAP) Pulse Ox O2 Delivery O2 Flow Rate FiO2 04/06/20 11:04 98.1 71 18 137/59 (85) 93 Nasal Cannula 4.0 98.1 General: Alert, Oriented X3, Cooperative Abdomen: Soft, Other (dressing dry) Labs Laboratory Tests Test 04/04/20 17:30 04/04/20 20:39 04/05/20 10:45 04/05/20 11:32 Glucose (Fingerstick) 284 mg/dL (70-99) 317 mg/dL (70-99) 323 mg/dL (70-99) White Blood Count 7.9 x10^3/uL (4.0-11.0) Red Blood Count 3.53 x10^6/uL (3.50-5.40) Hemoglobin 11.2 g/dL (12.0-15.5) Hematocrit 32.5 % (36.0-47.0) Mean Corpuscular Volume 92 fL (79-100) Mean Corpuscular Hemoglobin 32 pg (25-35) Mean Corpuscular Hemoglobin Concent 34 g/dL (31-37) Red Cell Distribution Width 14.5 % (11.5-14.5) Platelet Count 181 x10^3/uL (140-400) Neutrophils (%) (Auto) 74 % (31-73) Lymphocytes (%) (Auto) 11 % (24-48) Monocytes (%) (Auto) 13 % (0-9) Eosinophils (%) (Auto) 1 % (0-3) Basophils (%) (Auto) 1 % (0-3) Neutrophils # (Auto) 5.9 x10^3/uL (1.8-7.7) Lymphocytes # (Auto) 0.9 x10^3/uL (1.0-4.8) Monocytes # (Auto) 1.0 x10^3/uL (0.0-1.1) Eosinophils # (Auto) 0.1 x10^3/uL (0.0-0.7) Basophils # (Auto) 0.0 x10^3/uL (0.0-0.2) Sodium Level 135 mmol/L (136-145) Potassium Level 4.7 mmol/L (3.5-5.1) Chloride Level 99 mmol/L (98-107) Carbon Dioxide Level 25 mmol/L (21-32) Anion Gap 11 (6-14) Blood Urea Nitrogen 69 mg/dL (7-20) Creatinine 4.2 mg/dL (0.6-1.0) Estimated GFR (Cockcroft-Gault) 10.5 Glucose Level 325 mg/dL (70-99) Calcium Level 7.8 mg/dL (8.5-10.1) Test 04/05/20 16:46 04/05/20 20:25 04/06/20 04:57 04/06/20 07:19 Glucose (Fingerstick) 305 mg/dL (70-99) 312 mg/dL (70-99) 278 mg/dL (70-99) 301 mg/dL (70-99) Test 04/06/20 08:55 04/06/20 10:35 04/06/20 10:43 White Blood Count 5.9 x10^3/uL (4.0-11.0) Red Blood Count 3.57 x10^6/uL (3.50-5.40) Hemoglobin 11.1 g/dL (12.0-15.5) Hematocrit 32.8 % (36.0-47.0) Mean Corpuscular Volume 92 fL (79-100) Mean Corpuscular Hemoglobin 31 pg (25-35) Mean Corpuscular Hemoglobin Concent 34 g/dL (31-37) Red Cell Distribution Width 14.5 % (11.5-14.5) Platelet Count 197 x10^3/uL (140-400) Neutrophils (%) (Auto) 79 % (31-73) Lymphocytes (%) (Auto) 11 % (24-48) Monocytes (%) (Auto) 9 % (0-9) Eosinophils (%) (Auto) 1 % (0-3) Basophils (%) (Auto) 0 % (0-3) Neutrophils # (Auto) 4.6 x10^3/uL (1.8-7.7) Lymphocytes # (Auto) 0.6 x10^3/uL (1.0-4.8) Monocytes # (Auto) 0.5 x10^3/uL (0.0-1.1) Eosinophils # (Auto) 0.1 x10^3/uL (0.0-0.7) Basophils # (Auto) 0.0 x10^3/uL (0.0-0.2) Sodium Level 135 mmol/L (136-145) Potassium Level 4.8 mmol/L (3.5-5.1) Chloride Level 97 mmol/L (98-107) Carbon Dioxide Level 29 mmol/L (21-32) Anion Gap 9 (6-14) Blood Urea Nitrogen 70 mg/dL (7-20) Creatinine 2.8 mg/dL (0.6-1.0) Estimated GFR (Cockcroft-Gault) 16.8 Glucose Level 314 mg/dL (70-99) Calcium Level 8.1 mg/dL (8.5-10.1) Phosphorus Level 3.0 mg/dL (2.6-4.7) Urine Random Creatinine 168.9 mg/dL (Not Establ.) Glucose (Fingerstick) 287 mg/dL (70-99) Laboratory Tests Test 04/05/20 16:46 04/05/20 20:25 04/06/20 04:57 04/06/20 07:19 Glucose (Fingerstick) 305 mg/dL (70-99) 312 mg/dL (70-99) 278 mg/dL (70-99) 301 mg/dL (70-99) Test 04/06/20 08:55 04/06/20 10:35 04/06/20 10:43 White Blood Count 5.9 x10^3/uL (4.0-11.0) Red Blood Count 3.57 x10^6/uL (3.50-5.40) Hemoglobin 11.1 g/dL (12.0-15.5) Hematocrit 32.8 % (36.0-47.0) Mean Corpuscular Volume 92 fL (79-100) Mean Corpuscular Hemoglobin 31 pg (25-35) Mean Corpuscular Hemoglobin Concent 34 g/dL (31-37) Red Cell Distribution Width 14.5 % (11.5-14.5) Platelet Count 197 x10^3/uL (140-400) Neutrophils (%) (Auto) 79 % (31-73) Lymphocytes (%) (Auto) 11 % (24-48) Monocytes (%) (Auto) 9 % (0-9) Eosinophils (%) (Auto) 1 % (0-3) Basophils (%) (Auto) 0 % (0-3) Neutrophils # (Auto) 4.6 x10^3/uL (1.8-7.7) Lymphocytes # (Auto) 0.6 x10^3/uL (1.0-4.8) Monocytes # (Auto) 0.5 x10^3/uL (0.0-1.1) Eosinophils # (Auto) 0.1 x10^3/uL (0.0-0.7) Basophils # (Auto) 0.0 x10^3/uL (0.0-0.2) Sodium Level 135 mmol/L (136-145) Potassium Level 4.8 mmol/L (3.5-5.1) Chloride Level 97 mmol/L (98-107) Carbon Dioxide Level 29 mmol/L (21-32) Anion Gap 9 (6-14) Blood Urea Nitrogen 70 mg/dL (7-20) Creatinine 2.8 mg/dL (0.6-1.0) Estimated GFR (Cockcroft-Gault) 16.8 Glucose Level 314 mg/dL (70-99) Calcium Level 8.1 mg/dL (8.5-10.1) Phosphorus Level 3.0 mg/dL (2.6-4.7) Urine Random Creatinine 168.9 mg/dL (Not Establ.) Glucose (Fingerstick) 287 mg/dL (70-99) Problem List Problems Medical Problems: (1) Small bowel obstruction Status: Acute (2) Umbilical hernia Status: Acute Assessment/Plan clears until improved bowel function IPC for dm management, Cr improved Justicifation of Admission Dx: Justifications for Admission: Justification of Admission Dx: N/A TANYA CLARKE MD 04/06/20 1312: SURGICAL PROGRESS NOTE Assessment/Plan Agree with Baldev assessment and plan WILLY LAGUNAS APRN Apr 06, 2020 12:40 TANYA CLARKE MD Apr 06, 2020 13:12
[2020-04-06] MEDS: PROMETHAZINE 12.5 MG TABLET. PO PRN ×2 (14:41→21:06)
[2020-04-06 15:00] VITALS: BP 153/70
--- NOTE | 2020-04-06 15:52 | PDOC ---
PROGRESS NOTES Chief Complaint Chief Complaint Assessment/Plan Small bowel obstruction Umbilical hernia Status post laparotomy with repair of recurrent incisional hernia Essential hypertension Diabetes mellitus type 2 insulin required Morbid obesity with a BMI of 51 Plan Diet as per foreign legal consultant Awaiting for return of bowel function Encourage ambulation Incentive spirometry Resume home medication Reassess in the a.m. Further recommendations based on the clinical course DVT prophylaxis with SCD and teds History of Present Illness History of Present Illness Patient seems to be quite sleepy today again according to nursing staff during my encounter the patient was awake and with no complaints. Patient is ambulating and passing gases mental hygiene consultant recommendations were noted and greatly appreciated. Plan of care discussed with nursing staff Vitals Vitals Vital Signs Date Time Temp Pulse Resp B/P (MAP) Pulse Ox O2 Delivery O2 Flow Rate FiO2 04/06/20 15:00 97.9 70 17 153/70 (97) 93 Nasal Cannula 4.0 97.9 Physical Exam General: Alert, Oriented X3, Cooperative Heart: Regular rate Abdomen: Soft, Other (dressing dry) Extremities: No clubbing, No cyanosis Skin: No breakdown Labs LABS Laboratory Tests Test 04/05/20 16:46 04/05/20 20:25 04/06/20 04:57 04/06/20 07:19 Glucose (Fingerstick) 305 mg/dL (70-99) 312 mg/dL (70-99) 278 mg/dL (70-99) 301 mg/dL (70-99) Test 04/06/20 08:55 04/06/20 10:35 04/06/20 10:43 White Blood Count 5.9 x10^3/uL (4.0-11.0) Red Blood Count 3.57 x10^6/uL (3.50-5.40) Hemoglobin 11.1 g/dL (12.0-15.5) Hematocrit 32.8 % (36.0-47.0) Mean Corpuscular Volume 92 fL (79-100) Mean Corpuscular Hemoglobin 31 pg (25-35) Mean Corpuscular Hemoglobin Concent 34 g/dL (31-37) Red Cell Distribution Width 14.5 % (11.5-14.5) Platelet Count 197 x10^3/uL (140-400) Neutrophils (%) (Auto) 79 % (31-73) Lymphocytes (%) (Auto) 11 % (24-48) Monocytes (%) (Auto) 9 % (0-9) Eosinophils (%) (Auto) 1 % (0-3) Basophils (%) (Auto) 0 % (0-3) Neutrophils # (Auto) 4.6 x10^3/uL (1.8-7.7) Lymphocytes # (Auto) 0.6 x10^3/uL (1.0-4.8) Monocytes # (Auto) 0.5 x10^3/uL (0.0-1.1) Eosinophils # (Auto) 0.1 x10^3/uL (0.0-0.7) Basophils # (Auto) 0.0 x10^3/uL (0.0-0.2) Sodium Level 135 mmol/L (136-145) Potassium Level 4.8 mmol/L (3.5-5.1) Chloride Level 97 mmol/L (98-107) Carbon Dioxide Level 29 mmol/L (21-32) Anion Gap 9 (6-14) Blood Urea Nitrogen 70 mg/dL (7-20) Creatinine 2.8 mg/dL (0.6-1.0) Estimated GFR (Cockcroft-Gault) 16.8 Glucose Level 314 mg/dL (70-99) Calcium Level 8.1 mg/dL (8.5-10.1) Phosphorus Level 3.0 mg/dL (2.6-4.7) Urine Random Creatinine 168.9 mg/dL (Not Establ.) Glucose (Fingerstick) 287 mg/dL (70-99) Assessment and Plan Assessmemt and Plan Problems Medical Problems: (1) Small bowel obstruction Status: Acute (2) Umbilical hernia Status: Acute Comment Review of Relevant I have reviewed the following items lisbeth (where applicable) has been applied. Labs Laboratory Tests Test 04/04/20 17:30 04/04/20 20:39 04/05/20 10:45 04/05/20 11:32 Glucose (Fingerstick) 284 mg/dL (70-99) 317 mg/dL (70-99) 323 mg/dL (70-99) White Blood Count 7.9 x10^3/uL (4.0-11.0) Red Blood Count 3.53 x10^6/uL (3.50-5.40) Hemoglobin 11.2 g/dL (12.0-15.5) Hematocrit 32.5 % (36.0-47.0) Mean Corpuscular Volume 92 fL (79-100) Mean Corpuscular Hemoglobin 32 pg (25-35) Mean Corpuscular Hemoglobin Concent 34 g/dL (31-37) Red Cell Distribution Width 14.5 % (11.5-14.5) Platelet Count 181 x10^3/uL (140-400) Neutrophils (%) (Auto) 74 % (31-73) Lymphocytes (%) (Auto) 11 % (24-48) Monocytes (%) (Auto) 13 % (0-9) Eosinophils (%) (Auto) 1 % (0-3) Basophils (%) (Auto) 1 % (0-3) Neutrophils # (Auto) 5.9 x10^3/uL (1.8-7.7) Lymphocytes # (Auto) 0.9 x10^3/uL (1.0-4.8) Monocytes # (Auto) 1.0 x10^3/uL (0.0-1.1) Eosinophils # (Auto) 0.1 x10^3/uL (0.0-0.7) Basophils # (Auto) 0.0 x10^3/uL (0.0-0.2) Sodium Level 135 mmol/L (136-145) Potassium Level 4.7 mmol/L (3.5-5.1) Chloride Level 99 mmol/L (98-107) Carbon Dioxide Level 25 mmol/L (21-32) Anion Gap 11 (6-14) Blood Urea Nitrogen 69 mg/dL (7-20) Creatinine 4.2 mg/dL (0.6-1.0) Estimated GFR (Cockcroft-Gault) 10.5 Glucose Level 325 mg/dL (70-99) Calcium Level 7.8 mg/dL (8.5-10.1) Test 04/05/20 16:46 04/05/20 20:25 04/06/20 04:57 04/06/20 07:19 Glucose (Fingerstick) 305 mg/dL (70-99) 312 mg/dL (70-99) 278 mg/dL (70-99) 301 mg/dL (70-99) Test 04/06/20 08:55 04/06/20 10:35 04/06/20 10:43 White Blood Count 5.9 x10^3/uL (4.0-11.0) Red Blood Count 3.57 x10^6/uL (3.50-5.40) Hemoglobin 11.1 g/dL (12.0-15.5) Hematocrit 32.8 % (36.0-47.0) Mean Corpuscular Volume 92 fL (79-100) Mean Corpuscular Hemoglobin 31 pg (25-35) Mean Corpuscular Hemoglobin Concent 34 g/dL (31-37) Red Cell Distribution Width 14.5 % (11.5-14.5) Platelet Count 197 x10^3/uL (140-400) Neutrophils (%) (Auto) 79 % (31-73) Lymphocytes (%) (Auto) 11 % (24-48) Monocytes (%) (Auto) 9 % (0-9) Eosinophils (%) (Auto) 1 % (0-3) Basophils (%) (Auto) 0 % (0-3) Neutrophils # (Auto) 4.6 x10^3/uL (1.8-7.7) Lymphocytes # (Auto) 0.6 x10^3/uL (1.0-4.8) Monocytes # (Auto) 0.5 x10^3/uL (0.0-1.1) Eosinophils # (Auto) 0.1 x10^3/uL (0.0-0.7) Basophils # (Auto) 0.0 x10^3/uL (0.0-0.2) Sodium Level 135 mmol/L (136-145) Potassium Level 4.8 mmol/L (3.5-5.1) Chloride Level 97 mmol/L (98-107) Carbon Dioxide Level 29 mmol/L (21-32) Anion Gap 9 (6-14) Blood Urea Nitrogen 70 mg/dL (7-20) Creatinine 2.8 mg/dL (0.6-1.0) Estimated GFR (Cockcroft-Gault) 16.8 Glucose Level 314 mg/dL (70-99) Calcium Level 8.1 mg/dL (8.5-10.1) Phosphorus Level 3.0 mg/dL (2.6-4.7) Urine Random Creatinine 168.9 mg/dL (Not Establ.) Glucose (Fingerstick) 287 mg/dL (70-99) Laboratory Tests Test 04/05/20 16:46 04/05/20 20:25 04/06/20 04:57 04/06/20 07:19 Glucose (Fingerstick) 305 mg/dL (70-99) 312 mg/dL (70-99) 278 mg/dL (70-99) 301 mg/dL (70-99) Test 04/06/20 08:55 04/06/20 10:35 04/06/20 10:43 White Blood Count 5.9 x10^3/uL (4.0-11.0) Red Blood Count 3.57 x10^6/uL (3.50-5.40) Hemoglobin 11.1 g/dL (12.0-15.5) Hematocrit 32.8 % (36.0-47.0) Mean Corpuscular Volume 92 fL (79-100) Mean Corpuscular Hemoglobin 31 pg (25-35) Mean Corpuscular Hemoglobin Concent 34 g/dL (31-37) Red Cell Distribution Width 14.5 % (11.5-14.5) Platelet Count 197 x10^3/uL (140-400) Neutrophils (%) (Auto) 79 % (31-73) Lymphocytes (%) (Auto) 11 % (24-48) Monocytes (%) (Auto) 9 % (0-9) Eosinophils (%) (Auto) 1 % (0-3) Basophils (%) (Auto) 0 % (0-3) Neutrophils # (Auto) 4.6 x10^3/uL (1.8-7.7) Lymphocytes # (Auto) 0.6 x10^3/uL (1.0-4.8) Monocytes # (Auto) 0.5 x10^3/uL (0.0-1.1) Eosinophils # (Auto) 0.1 x10^3/uL (0.0-0.7) Basophils # (Auto) 0.0 x10^3/uL (0.0-0.2) Sodium Level 135 mmol/L (136-145) Potassium Level 4.8 mmol/L (3.5-5.1) Chloride Level 97 mmol/L (98-107) Carbon Dioxide Level 29 mmol/L (21-32) Anion Gap 9 (6-14) Blood Urea Nitrogen 70 mg/dL (7-20) Creatinine 2.8 mg/dL (0.6-1.0) Estimated GFR (Cockcroft-Gault) 16.8 Glucose Level 314 mg/dL (70-99) Calcium Level 8.1 mg/dL (8.5-10.1) Phosphorus Level 3.0 mg/dL (2.6-4.7) Urine Random Creatinine 168.9 mg/dL (Not Establ.) Glucose (Fingerstick) 287 mg/dL (70-99) Microbiology 04/03/20 Urine Culture - Final, Complete Medications Current Medications Ondansetron HCl (Zofran) 8 mg 1X ONCE IVP Last administered on 04/03/20at 07:44; Start 04/03/20 at 07:30; Stop 04/03/20 at 07:31; Status DC Morphine Sulfate (Morphine Sulfate) 4 mg 1X ONCE IV Last administered on 04/03/20at 07:47; Start 04/03/20 at 07:30; Stop 04/03/20 at 07:31; Status DC Morphine Sulfate (Morphine Sulfate) 4 mg 1X ONCE IV Last administered on 04/03/20at 09:17; Start 04/03/20 at 09:15; Stop 04/03/20 at 09:16; Status DC Benzocaine (Hurricaine One) 1 spray STK-MED ONCE .ROUTE ; Start 04/03/20 at 09:11; Stop 04/03/20 at 09:11; Status DC Benzocaine (Hurricaine One) 1 spray 1X ONCE MM Last administered on 04/03/20at 09:21; Start 04/03/20 at 09:30; Stop 04/03/20 at 09:31; Status DC Ondansetron HCl (Zofran) 4 mg PRN Q8HRS PRN IV NAUSEA/VOMITING Last administered on 04/04/20at 03:19; Start 04/03/20 at 09:30; Stop 04/04/20 at 09:29; Status DC Morphine Sulfate (Morphine Sulfate) 4 mg PRN Q2HR PRN IV PAIN Last administered on 04/04/20at 07:28; Start 04/03/20 at 09:30; Stop 04/04/20 at 09:29; Status DC Sodium Chloride 1,000 ml @ 75 mls/hr [id number] IV Last administered on 04/04/20at 03:23; Start 04/03/20 at 09:17; Stop 04/04/20 at 09:16; Status DC Ringer's Solution 1,000 ml @ 30 mls/hr Q24H IV Last administered on 04/03/20at 13:00; Start 04/03/20 at 10:45; Stop 04/03/20 at 22:44; Status DC Lidocaine HCl (Xylocaine-Mpf 1% 2ml Vial) 2 ml PRN 1X PRN ID PRIOR TO IV START; Start 04/03/20 at 10:45; Stop 04/04/20 at 10:44; Status DC Prochlorperazine Edisylate (Compazine) 5 mg PACU PRN PRN IV NAUSEA, MRX1; Start 04/03/20 at 10:45; Stop 04/04/20 at 10:44; Status DC Hydromorphone HCl (Dilaudid) 1 mg 1X ONCE IV ; Start 04/03/20 at 11:00; Stop 04/03/20 at 11:01; Status DC Propofol (Diprivan) 200 mg STK-MED ONCE IV ; Start 04/03/20 at 12:52; Stop 04/03/20 at 12:52; Status DC Lidocaine HCl (Xylocaine-Mpf 1% 5ml Vial) 5 ml STK-MED ONCE .ROUTE ; Start 04/03/20 at 12:52; Stop 04/03/20 at 12:52; Status DC Ondansetron HCl (Zofran) 4 mg STK-MED ONCE .ROUTE ; Start 04/03/20 at 12:52; Stop 04/03/20 at 12:52; Status DC Dexamethasone Sodium Phosphate (Decadron) 4 mg STK-MED ONCE .ROUTE ; Start 04/03/20 at 12:52; Stop 04/03/20 at 12:52; Status DC Fentanyl Citrate (Fentanyl 2ml Vial) 100 mcg STK-MED ONCE .ROUTE ; Start 04/03/20 at 12:52; Stop 04/03/20 at 12:53; Status DC Rocuronium Hamilton (Zemuron) 100 mg STK-MED ONCE .ROUTE ; Start 04/03/20 at 12:54; Stop 04/03/20 at 12:54; Status DC Mineral Oil (Muri-Lube) 10 ml STK-MED ONCE MC ; Start 04/03/20 at 13:08; Stop 04/03/20 at 13:08; Status DC Bupivacaine HCl/ Epinephrine Bitart (Sensorcaine-Epi 0.25%-1:565448 Mpf) 30 ml STK-MED ONCE .ROUTE Last administered on 04/03/20at 14:28; Start 04/03/20 at 13:08; Stop 04/03/20 at 13:08; Status DC Cefazolin Sodium 3 gm/Dextrose 100 ml @ 200 mls/hr 1X PREOP ONCE IV Last administered on 04/03/20at 14:22; Start 04/03/20 at 14:00; Stop 04/03/20 at 14:29; Status DC Glycopyrrolate (Robinul) 1 mg STK-MED ONCE .ROUTE ; Start 04/03/20 at 14:31; Stop 04/03/20 at 14:31; Status DC Sevoflurane (Ultane) 90 ml STK-MED ONCE IH ; Start 04/03/20 at 14:38; Stop 04/03/20 at 14:38; Status DC Rocuronium Hamilton (Zemuron) 50 mg STK-MED ONCE .ROUTE ; Start 04/03/20 at 14:53; Stop 04/03/20 at 14:53; Status DC Fentanyl Citrate (Fentanyl 2ml Vial) 100 mcg STK-MED ONCE .ROUTE ; Start 04/03/20 at 15:53; Stop 04/03/20 at 15:53; Status DC Fentanyl Citrate (Fentanyl 2ml Vial) 25 mcg PRN Q5MIN PRN IV MILD PAIN 1-3; Start 04/03/20 at 16:30; Stop 04/04/20 at 16:29; Status DC Fentanyl Citrate (Fentanyl 2ml Vial) 50 mcg PRN Q5MIN PRN IV MODERATE TO SEVERE PAIN Last administered on 04/03/20at 17:34; Start 04/03/20 at 16:30; Stop 04/04/20 at 16:29; Status DC Morphine Sulfate (Morphine Sulfate) 2 mg PRN Q10MIN PRN IV MILD PAIN 1-3; Start 04/03/20 at 16:30; Stop 04/04/20 at 16:29; Status DC Morphine Sulfate (Morphine Sulfate) 4 mg PRN Q10MIN PRN IV Moderate to Severe Pain; Start 04/03/20 at 16:30; Stop 04/04/20 at 16:29; Status DC Hydromorphone HCl (Dilaudid) 0.5 mg PRN Q10MIN PRN IV Moderate to severe pain; Start 04/03/20 at 16:30; Stop 04/04/20 at 16:29; Status DC Insulin Human Lispro (HumaLOG VIAL for OP,RR ONLY) 0-10 units PRN Q1HR PRN SQ PER PROTOCOL Last administered on 04/03/20at 17:09; Start 04/03/20 at 16:30; Stop 04/04/20 at 16:29; Status DC Fentanyl Citrate (Fentanyl 2ml Vial) 100 mcg STK-MED ONCE .ROUTE ; Start 04/03/20 at 17:23; Stop 04/03/20 at 17:24; Status DC Insulin Human Lispro (HumaLOG) 0-7 UNITS TIDWMEALS SQ Last administered on 04/06/20at 12:45; Start 04/04/20 at 13:10 Dextrose (Dextrose 50%-Water Syringe) 12.5 gm PRN Q15MIN PRN IV SEE COMMENTS; Start 04/04/20 at 13:15 Atorvastatin Calcium (Lipitor) 20 mg HS PO ; Start 04/05/20 at 21:00 Lisinopril (Prinivil) 20 mg DAILY PO ; Start 04/06/20 at 09:00; Stop 04/06/20 at 08:31; Status DC Insulin Human Lispro (HumaLOG) 8 units TIDWMEALS SQ Last administered on 04/06/20at 12:44; Start 04/06/20 at 08:00 Insulin Glargine (Lantus Syringe) 30 unit QHS SQ Last administered on 04/05/20at 21:00; Start 04/05/20 at 21:00 Insulin Human Lispro (HumaLOG) 9 units 1X ONCE SQ Last administered on 04/05/20at 21:23; Start 04/05/20 at 21:00; Stop 04/05/20 at 21:01; Status DC Ondansetron HCl (Zofran) 4 mg PRN Q4HRS PRN IVP NAUSEA/VOMITING Last administered on 04/06/20at 10:28; Start 04/06/20 at 04:45 Sodium Chloride 1,000 ml @ 75 mls/hr [id number] IV Last administered on 04/06/20at 10:28; Start 04/06/20 at 08:30 Acetaminophen (Tylenol) 650 mg PRN Q4HRS PRN PO MILD PAIN 1-3 Last administered on 04/06/20at 12:38; Start 04/06/20 at 12:30 Promethazine HCl (Phenergan) 12.5 mg PRN Q6HRS PRN PO NAUSEA/VOMITING Last administered on 04/06/20at 14:41; Start 04/06/20 at 14:15 Active Scripts Active Reported Trulicity (Dulaglutide) 0.75 Mg/0.5 Ml Pen.injctr 0.75 Mg SQ WEEKLY Novolog (Insulin Aspart) 100 Unit/1 Ml Cartridge 25 Unit SQ TIDAC Lantus Solostar (Insulin Glargine,Hum.rec.anlog) 100 Unit/1 Ml Insuln.pen 60 Unit SQ QHS Lipitor (Atorvastatin Calcium) 20 Mg Tablet 1 Tab PO HS Lisinopril 20 Mg Tablet 1 Tab PO DAILY Vitals/I & O Vital Sign - Last 24 Hours 04/05/20 04/05/20 04/05/20 04/06/20 19:00 19:30 23:00 03:00 Temp 99.4 98.8 98.3 99.4 98.8 98.3 Pulse 75 83 72 Resp 18 18 18 B/P (MAP) 122/49 (73) 103/43 (63) 134/51 (78) Pulse Ox 92 90 93 O2 Delivery Room Air Nasal Cannula Nasal Cannula Nasal Cannula O2 Flow Rate 4.0 4.0 4.0 04/06/20 04/06/20 04/06/20 04/06/20 07:39 08:00 11:04 15:00 Temp 98.1 98.1 97.9 98.1 98.1 97.9 Pulse 79 71 70 Resp 18 18 17 B/P (MAP) 144/62 (89) 137/59 (85) 153/70 (97) Pulse Ox 93 93 93 O2 Delivery Nasal Cannula Nasal Cannula Nasal Cannula Nasal Cannula O2 Flow Rate 4.0 4.0 4.0 4.0 Justicifation of Admission Dx: Justifications for Admission: Justification of Admission Dx: N/A JG DOMINGUEZ MD Apr 06, 2020 15:52
[2020-04-06 16:20] LABS: BASE EXCESS ABG -1 mmol/L (-3-3); HCO3 ABG 24 mmol/L (21-28); PCO2 ABG 41 mmHg (35-46); PO2 ABG 53 mmHg (65-108); SAT O2 ABG 87 % (92-99)
[2020-04-06 16:27] LABS: FIO2 ABG RA
--- NOTE | 2020-04-06 16:36 | NUR ---
Report given to PATRICIA Carmona. Pt in chair sleeping. Call light within reach.
--- NOTE | 2020-04-06 17:55 | NUR ---
Patient refused 1700 insulin, did not want to eat. Patient stated she would call for insulin if she felt better and wanted to have any intake.
[2020-04-06 19:00] VITALS: BP 148/68
[2020-04-06] MEDS ORDERED: HYDROcodone/APAP 5/325MG 1 TAB TABLET PO PRN (21:00)
[2020-04-06] MEDS: ATORVASTATIN CALCIUM 20 MG TABLET PO SCH (21:06)
[2020-04-06] MEDS: INSULIN GLARGINE SYRINGE. SQ SCH (21:10)
[2020-04-06 23:00] VITALS: BP 138/61
--- NOTE | 2020-04-07 | NUR ---
Pt. vomited 2x dark green emesis. Patient has been complaining of nausea throughout the night.
[2020-04-07 03:00] VITALS: BP 143/59
[2020-04-07] MEDS: PROMETHAZINE 12.5 MG TABLET. PO PRN (03:26)
[2020-04-07] MEDS: ONDANSETRON PF 4 MG/2 ML VIAL. IVP PRN ×5 (03:26→19:36)
[2020-04-07 05:54] LABS: CALCIUM 8.7 mg/dL (8.5-10.1); GFR 24.7; POTASSIUM 4.3 mmol/L (3.5-5.1)
[2020-04-07 07:00] VITALS: BP 146/54
[2020-04-07] MEDS: INSULIN LISPRO 300 UNITS/3 ML VIAL. SQ SCH ×6 (07:49→17:00)
--- NOTE | 2020-04-07 09:17 | RAD ---
EXAM: Abdomen acute complete HISTORY: Ileus. COMPARISON: CT dated 04/03/2020. FINDINGS: A frontal view the chest and frontal upright and supine views of the abdomen are obtained. There is linear atelectasis or infiltrate within the left mid and lower thorax. No pleural effusion or pneumothorax is seen. The heart is normal in size. There are severely distended air-filled loops of bowel throughout the abdomen. There is an air-fluid level within a distended stomach. There is colonic stool. There are cholecystectomy clips. IMPRESSION: 1. Distended air-filled bowel throughout the abdomen. This appears to be increased compared to the prior study. Correlate for increasing ileus or partial distal obstruction. 2. Linear atelectasis or infiltrate within the left mid lower thorax. Electronically signed by: Winter Rocha MD (04/07/2020 9:14 AM) [id number]
--- NOTE | 2020-04-07 09:27 | PDOC ---
SURGICAL PROGRESS NOTE Subjective Patient complaining of nausea has been passing flatus no bowel movement Vital Signs Vital Signs Date Time Temp Pulse Resp B/P (MAP) Pulse Ox O2 Delivery O2 Flow Rate FiO2 04/07/20 08:00 Nasal Cannula 2.0 04/07/20 07:00 98.1 78 20 146/54 (84) 95 98.1 I&O Intake and Output 04/07/20 07:00 Output Total 100 ml Balance -100 ml Emesis 100 ml # Voids 2 PATIENT HAS A JANE: No General: Alert, Oriented X3, Cooperative, mild distress Abdomen: Normal bowel sounds, Soft, Other (Mild incisional tenderness wounds clean dry and intact) Labs Laboratory Tests Test 04/05/20 10:45 04/05/20 11:32 04/05/20 16:46 04/05/20 20:25 White Blood Count 7.9 x10^3/uL (4.0-11.0) Red Blood Count 3.53 x10^6/uL (3.50-5.40) Hemoglobin 11.2 g/dL (12.0-15.5) Hematocrit 32.5 % (36.0-47.0) Mean Corpuscular Volume 92 fL (79-100) Mean Corpuscular Hemoglobin 32 pg (25-35) Mean Corpuscular Hemoglobin Concent 34 g/dL (31-37) Red Cell Distribution Width 14.5 % (11.5-14.5) Platelet Count 181 x10^3/uL (140-400) Neutrophils (%) (Auto) 74 % (31-73) Lymphocytes (%) (Auto) 11 % (24-48) Monocytes (%) (Auto) 13 % (0-9) Eosinophils (%) (Auto) 1 % (0-3) Basophils (%) (Auto) 1 % (0-3) Neutrophils # (Auto) 5.9 x10^3/uL (1.8-7.7) Lymphocytes # (Auto) 0.9 x10^3/uL (1.0-4.8) Monocytes # (Auto) 1.0 x10^3/uL (0.0-1.1) Eosinophils # (Auto) 0.1 x10^3/uL (0.0-0.7) Basophils # (Auto) 0.0 x10^3/uL (0.0-0.2) Sodium Level 135 mmol/L (136-145) Potassium Level 4.7 mmol/L (3.5-5.1) Chloride Level 99 mmol/L (98-107) Carbon Dioxide Level 25 mmol/L (21-32) Anion Gap 11 (6-14) Blood Urea Nitrogen 69 mg/dL (7-20) Creatinine 4.2 mg/dL (0.6-1.0) Estimated GFR (Cockcroft-Gault) 10.5 Glucose Level 325 mg/dL (70-99) Calcium Level 7.8 mg/dL (8.5-10.1) Glucose (Fingerstick) 323 mg/dL (70-99) 305 mg/dL (70-99) 312 mg/dL (70-99) Test 04/06/20 04:57 04/06/20 07:19 04/06/20 08:55 04/06/20 10:35 Glucose (Fingerstick) 278 mg/dL (70-99) 301 mg/dL (70-99) White Blood Count 5.9 x10^3/uL (4.0-11.0) Red Blood Count 3.57 x10^6/uL (3.50-5.40) Hemoglobin 11.1 g/dL (12.0-15.5) Hematocrit 32.8 % (36.0-47.0) Mean Corpuscular Volume 92 fL (79-100) Mean Corpuscular Hemoglobin 31 pg (25-35) Mean Corpuscular Hemoglobin Concent 34 g/dL (31-37) Red Cell Distribution Width 14.5 % (11.5-14.5) Platelet Count 197 x10^3/uL (140-400) Neutrophils (%) (Auto) 79 % (31-73) Lymphocytes (%) (Auto) 11 % (24-48) Monocytes (%) (Auto) 9 % (0-9) Eosinophils (%) (Auto) 1 % (0-3) Basophils (%) (Auto) 0 % (0-3) Neutrophils # (Auto) 4.6 x10^3/uL (1.8-7.7) Lymphocytes # (Auto) 0.6 x10^3/uL (1.0-4.8) Monocytes # (Auto) 0.5 x10^3/uL (0.0-1.1) Eosinophils # (Auto) 0.1 x10^3/uL (0.0-0.7) Basophils # (Auto) 0.0 x10^3/uL (0.0-0.2) Sodium Level 135 mmol/L (136-145) Potassium Level 4.8 mmol/L (3.5-5.1) Chloride Level 97 mmol/L (98-107) Carbon Dioxide Level 29 mmol/L (21-32) Anion Gap 9 (6-14) Blood Urea Nitrogen 70 mg/dL (7-20) Creatinine 2.8 mg/dL (0.6-1.0) Estimated GFR (Cockcroft-Gault) 16.8 Glucose Level 314 mg/dL (70-99) Calcium Level 8.1 mg/dL (8.5-10.1) Phosphorus Level 3.0 mg/dL (2.6-4.7) Urine Random Creatinine 168.9 mg/dL (Not Establ.) Test 04/06/20 10:43 04/06/20 12:05 04/06/20 16:19 04/06/20 20:35 Glucose (Fingerstick) 287 mg/dL (70-99) 195 mg/dL (70-99) 212 mg/dL (70-99) O2 Saturation 87 % (92-99) Arterial Blood pH 7.38 (7.35-7.45) Arterial Blood pCO2 at Patient Temp 41 mmHg (35-46) Arterial Blood pO2 at Patient Temp 53 mmHg (65-108) Arterial Blood HCO3 24 mmol/L (21-28) Arterial Blood Base Excess -1 mmol/L (-3-3) FiO2 Ra Test 04/07/20 05:00 04/07/20 07:34 Sodium Level 137 mmol/L (136-145) Potassium Level 4.3 mmol/L (3.5-5.1) Chloride Level 99 mmol/L (98-107) Carbon Dioxide Level 27 mmol/L (21-32) Anion Gap 11 (6-14) Blood Urea Nitrogen 67 mg/dL (7-20) Creatinine 2.0 mg/dL (0.6-1.0) Estimated GFR (Cockcroft-Gault) 24.7 Glucose Level 294 mg/dL (70-99) Calcium Level 8.7 mg/dL (8.5-10.1) Glucose (Fingerstick) 309 mg/dL (70-99) Laboratory Tests Test 04/06/20 10:35 04/06/20 10:43 04/06/20 12:05 04/06/20 16:19 Urine Random Creatinine 168.9 mg/dL (Not Establ.) Glucose (Fingerstick) 287 mg/dL (70-99) 195 mg/dL (70-99) O2 Saturation 87 % (92-99) Arterial Blood pH 7.38 (7.35-7.45) Arterial Blood pCO2 at Patient Temp 41 mmHg (35-46) Arterial Blood pO2 at Patient Temp 53 mmHg (65-108) Arterial Blood HCO3 24 mmol/L (21-28) Arterial Blood Base Excess -1 mmol/L (-3-3) FiO2 Ra Test 04/06/20 20:35 04/07/20 05:00 04/07/20 07:34 Glucose (Fingerstick) 212 mg/dL (70-99) 309 mg/dL (70-99) Sodium Level 137 mmol/L (136-145) Potassium Level 4.3 mmol/L (3.5-5.1) Chloride Level 99 mmol/L (98-107) Carbon Dioxide Level 27 mmol/L (21-32) Anion Gap 11 (6-14) Blood Urea Nitrogen 67 mg/dL (7-20) Creatinine 2.0 mg/dL (0.6-1.0) Estimated GFR (Cockcroft-Gault) 24.7 Glucose Level 294 mg/dL (70-99) Calcium Level 8.7 mg/dL (8.5-10.1) Problem List Problems Medical Problems: (1) Small bowel obstruction Status: Acute (2) Umbilical hernia Status: Acute Assessment/Plan Status post repair of ventral hernia with incarcerated small bowel causing obstruction Having fair amount of nausea will hold diet until return of bowel function Supportive care Justicifation of Admission Dx: Justifications for Admission: Justification of Admission Dx: N/A TANYA CLARKE MD Apr 07, 2020 09:27
--- NOTE | 2020-04-07 09:29 | PDOC ---
PROGRESS NOTES Chief Complaint Chief Complaint Assessment/Plan Small bowel obstruction Umbilical hernia Status post laparotomy with repair of recurrent incisional hernia Essential hypertension Diabetes mellitus type 2 insulin required Morbid obesity with a BMI of 51 Acute renal failure vasomotor etiology most likely improved. Plan Diet as per sap solution manager consultant Awaiting for return of bowel function will send imaging studies symptomatic relief of symptoms. renal function improved follow urine output Encourage ambulation Incentive spirometry Resume home medication Reassess in the a.m. Further recommendations based on the clinical course DVT prophylaxis with SCD and teds History of Present Illness History of Present Illness 04/06 Patient seems to be quite sleepy today again according to nursing staff during my encounter the patient was awake and with no complaints. Patient is ambulating and passing gases surgical scheduler recommendations were noted and greatly appreciated. Plan of care discussed with nursing staff 04/07 Patient quite nauseous, no bowel sounds, says she has passed gas but does not feel well, renal function noted and improved. Reassurance provided, discussed with nursing staff Vitals Vitals Vital Signs Date Time Temp Pulse Resp B/P (MAP) Pulse Ox O2 Delivery O2 Flow Rate FiO2 04/07/20 08:00 Nasal Cannula 2.0 04/07/20 07:00 98.1 78 20 146/54 (84) 95 98.1 Physical Exam General: Alert, Oriented X3, Cooperative Heart: Regular rate, Normal S1, Normal S2 Lungs: Clear Abdomen: Soft, Other (dressing dry, absent bowel sounds) Extremities: No clubbing, No cyanosis Skin: No breakdown Labs LABS Laboratory Tests Test 04/06/20 10:35 04/06/20 10:43 04/06/20 12:05 04/06/20 16:19 Urine Random Creatinine 168.9 mg/dL (Not Establ.) Glucose (Fingerstick) 287 mg/dL (70-99) 195 mg/dL (70-99) O2 Saturation 87 % (92-99) Arterial Blood pH 7.38 (7.35-7.45) Arterial Blood pCO2 at Patient Temp 41 mmHg (35-46) Arterial Blood pO2 at Patient Temp 53 mmHg (65-108) Arterial Blood HCO3 24 mmol/L (21-28) Arterial Blood Base Excess -1 mmol/L (-3-3) FiO2 Ra Test 04/06/20 20:35 04/07/20 05:00 04/07/20 07:34 Glucose (Fingerstick) 212 mg/dL (70-99) 309 mg/dL (70-99) Sodium Level 137 mmol/L (136-145) Potassium Level 4.3 mmol/L (3.5-5.1) Chloride Level 99 mmol/L (98-107) Carbon Dioxide Level 27 mmol/L (21-32) Anion Gap 11 (6-14) Blood Urea Nitrogen 67 mg/dL (7-20) Creatinine 2.0 mg/dL (0.6-1.0) Estimated GFR (Cockcroft-Gault) 24.7 Glucose Level 294 mg/dL (70-99) Calcium Level 8.7 mg/dL (8.5-10.1) Review of Systems Review of Systems pertinent as per hpi otherwise 10 point ROS Assessment and Plan Assessmemt and Plan Problems Medical Problems: (1) Small bowel obstruction Status: Acute (2) Umbilical hernia Status: Acute Comment Review of Relevant I have reviewed the following items lisbeth (where applicable) has been applied. Labs Laboratory Tests Test 04/05/20 10:45 04/05/20 11:32 04/05/20 16:46 04/05/20 20:25 White Blood Count 7.9 x10^3/uL (4.0-11.0) Red Blood Count 3.53 x10^6/uL (3.50-5.40) Hemoglobin 11.2 g/dL (12.0-15.5) Hematocrit 32.5 % (36.0-47.0) Mean Corpuscular Volume 92 fL (79-100) Mean Corpuscular Hemoglobin 32 pg (25-35) Mean Corpuscular Hemoglobin Concent 34 g/dL (31-37) Red Cell Distribution Width 14.5 % (11.5-14.5) Platelet Count 181 x10^3/uL (140-400) Neutrophils (%) (Auto) 74 % (31-73) Lymphocytes (%) (Auto) 11 % (24-48) Monocytes (%) (Auto) 13 % (0-9) Eosinophils (%) (Auto) 1 % (0-3) Basophils (%) (Auto) 1 % (0-3) Neutrophils # (Auto) 5.9 x10^3/uL (1.8-7.7) Lymphocytes # (Auto) 0.9 x10^3/uL (1.0-4.8) Monocytes # (Auto) 1.0 x10^3/uL (0.0-1.1) Eosinophils # (Auto) 0.1 x10^3/uL (0.0-0.7) Basophils # (Auto) 0.0 x10^3/uL (0.0-0.2) Sodium Level 135 mmol/L (136-145) Potassium Level 4.7 mmol/L (3.5-5.1) Chloride Level 99 mmol/L (98-107) Carbon Dioxide Level 25 mmol/L (21-32) Anion Gap 11 (6-14) Blood Urea Nitrogen 69 mg/dL (7-20) Creatinine 4.2 mg/dL (0.6-1.0) Estimated GFR (Cockcroft-Gault) 10.5 Glucose Level 325 mg/dL (70-99) Calcium Level 7.8 mg/dL (8.5-10.1) Glucose (Fingerstick) 323 mg/dL (70-99) 305 mg/dL (70-99) 312 mg/dL (70-99) Test 04/06/20 04:57 04/06/20 07:19 04/06/20 08:55 04/06/20 10:35 Glucose (Fingerstick) 278 mg/dL (70-99) 301 mg/dL (70-99) White Blood Count 5.9 x10^3/uL (4.0-11.0) Red Blood Count 3.57 x10^6/uL (3.50-5.40) Hemoglobin 11.1 g/dL (12.0-15.5) Hematocrit 32.8 % (36.0-47.0) Mean Corpuscular Volume 92 fL (79-100) Mean Corpuscular Hemoglobin 31 pg (25-35) Mean Corpuscular Hemoglobin Concent 34 g/dL (31-37) Red Cell Distribution Width 14.5 % (11.5-14.5) Platelet Count 197 x10^3/uL (140-400) Neutrophils (%) (Auto) 79 % (31-73) Lymphocytes (%) (Auto) 11 % (24-48) Monocytes (%) (Auto) 9 % (0-9) Eosinophils (%) (Auto) 1 % (0-3) Basophils (%) (Auto) 0 % (0-3) Neutrophils # (Auto) 4.6 x10^3/uL (1.8-7.7) Lymphocytes # (Auto) 0.6 x10^3/uL (1.0-4.8) Monocytes # (Auto) 0.5 x10^3/uL (0.0-1.1) Eosinophils # (Auto) 0.1 x10^3/uL (0.0-0.7) Basophils # (Auto) 0.0 x10^3/uL (0.0-0.2) Sodium Level 135 mmol/L (136-145) Potassium Level 4.8 mmol/L (3.5-5.1) Chloride Level 97 mmol/L (98-107) Carbon Dioxide Level 29 mmol/L (21-32) Anion Gap 9 (6-14) Blood Urea Nitrogen 70 mg/dL (7-20) Creatinine 2.8 mg/dL (0.6-1.0) Estimated GFR (Cockcroft-Gault) 16.8 Glucose Level 314 mg/dL (70-99) Calcium Level 8.1 mg/dL (8.5-10.1) Phosphorus Level 3.0 mg/dL (2.6-4.7) Urine Random Creatinine 168.9 mg/dL (Not Establ.) Test 04/06/20 10:43 04/06/20 12:05 04/06/20 16:19 04/06/20 20:35 Glucose (Fingerstick) 287 mg/dL (70-99) 195 mg/dL (70-99) 212 mg/dL (70-99) O2 Saturation 87 % (92-99) Arterial Blood pH 7.38 (7.35-7.45) Arterial Blood pCO2 at Patient Temp 41 mmHg (35-46) Arterial Blood pO2 at Patient Temp 53 mmHg (65-108) Arterial Blood HCO3 24 mmol/L (21-28) Arterial Blood Base Excess -1 mmol/L (-3-3) FiO2 Ra Test 04/07/20 05:00 04/07/20 07:34 Sodium Level 137 mmol/L (136-145) Potassium Level 4.3 mmol/L (3.5-5.1) Chloride Level 99 mmol/L (98-107) Carbon Dioxide Level 27 mmol/L (21-32) Anion Gap 11 (6-14) Blood Urea Nitrogen 67 mg/dL (7-20) Creatinine 2.0 mg/dL (0.6-1.0) Estimated GFR (Cockcroft-Gault) 24.7 Glucose Level 294 mg/dL (70-99) Calcium Level 8.7 mg/dL (8.5-10.1) Glucose (Fingerstick) 309 mg/dL (70-99) Laboratory Tests Test 04/06/20 10:35 04/06/20 10:43 04/06/20 12:05 04/06/20 16:19 Urine Random Creatinine 168.9 mg/dL (Not Establ.) Glucose (Fingerstick) 287 mg/dL (70-99) 195 mg/dL (70-99) O2 Saturation 87 % (92-99) Arterial Blood pH 7.38 (7.35-7.45) Arterial Blood pCO2 at Patient Temp 41 mmHg (35-46) Arterial Blood pO2 at Patient Temp 53 mmHg (65-108) Arterial Blood HCO3 24 mmol/L (21-28) Arterial Blood Base Excess -1 mmol/L (-3-3) FiO2 Ra Test 04/06/20 20:35 04/07/20 05:00 04/07/20 07:34 Glucose (Fingerstick) 212 mg/dL (70-99) 309 mg/dL (70-99) Sodium Level 137 mmol/L (136-145) Potassium Level 4.3 mmol/L (3.5-5.1) Chloride Level 99 mmol/L (98-107) Carbon Dioxide Level 27 mmol/L (21-32) Anion Gap 11 (6-14) Blood Urea Nitrogen 67 mg/dL (7-20) Creatinine 2.0 mg/dL (0.6-1.0) Estimated GFR (Cockcroft-Gault) 24.7 Glucose Level 294 mg/dL (70-99) Calcium Level 8.7 mg/dL (8.5-10.1) Microbiology 04/03/20 Urine Culture - Final, Complete Medications Current Medications Ondansetron HCl (Zofran) 8 mg 1X ONCE IVP Last administered on 04/03/20at 07:44; Start 04/03/20 at 07:30; Stop 04/03/20 at 07:31; Status DC Morphine Sulfate (Morphine Sulfate) 4 mg 1X ONCE IV Last administered on 04/03/20at 07:47; Start 04/03/20 at 07:30; Stop 04/03/20 at 07:31; Status DC Morphine Sulfate (Morphine Sulfate) 4 mg 1X ONCE IV Last administered on 04/03/20at 09:17; Start 04/03/20 at 09:15; Stop 04/03/20 at 09:16; Status DC Benzocaine (Hurricaine One) 1 spray STK-MED ONCE .ROUTE ; Start 04/03/20 at 09:11; Stop 04/03/20 at 09:11; Status DC Benzocaine (Hurricaine One) 1 spray 1X ONCE MM Last administered on 04/03/20at 09:21; Start 04/03/20 at 09:30; Stop 04/03/20 at 09:31; Status DC Ondansetron HCl (Zofran) 4 mg PRN Q8HRS PRN IV NAUSEA/VOMITING Last administered on 04/04/20at 03:19; Start 04/03/20 at 09:30; Stop 04/04/20 at 09:29; Status DC Morphine Sulfate (Morphine Sulfate) 4 mg PRN Q2HR PRN IV PAIN Last administered on 04/04/20at 07:28; Start 04/03/20 at 09:30; Stop 04/04/20 at 09:29; Status DC Sodium Chloride 1,000 ml @ 75 mls/hr [id number] IV Last administered on 04/04/20at 03:23; Start 04/03/20 at 09:17; Stop 04/04/20 at 09:16; Status DC Ringer's Solution 1,000 ml @ 30 mls/hr Q24H IV Last administered on 04/03/20at 13:00; Start 04/03/20 at 10:45; Stop 04/03/20 at 22:44; Status DC Lidocaine HCl (Xylocaine-Mpf 1% 2ml Vial) 2 ml PRN 1X PRN ID PRIOR TO IV START; Start 04/03/20 at 10:45; Stop 04/04/20 at 10:44; Status DC Prochlorperazine Edisylate (Compazine) 5 mg PACU PRN PRN IV NAUSEA, MRX1; Start 04/03/20 at 10:45; Stop 04/04/20 at 10:44; Status DC Hydromorphone HCl (Dilaudid) 1 mg 1X ONCE IV ; Start 04/03/20 at 11:00; Stop 04/03/20 at 11:01; Status DC Propofol (Diprivan) 200 mg STK-MED ONCE IV ; Start 04/03/20 at 12:52; Stop 04/03/20 at 12:52; Status DC Lidocaine HCl (Xylocaine-Mpf 1% 5ml Vial) 5 ml STK-MED ONCE .ROUTE ; Start 04/03/20 at 12:52; Stop 04/03/20 at 12:52; Status DC Ondansetron HCl (Zofran) 4 mg STK-MED ONCE .ROUTE ; Start 04/03/20 at 12:52; Stop 04/03/20 at 12:52; Status DC Dexamethasone Sodium Phosphate (Decadron) 4 mg STK-MED ONCE .ROUTE ; Start 04/03/20 at 12:52; Stop 04/03/20 at 12:52; Status DC Fentanyl Citrate (Fentanyl 2ml Vial) 100 mcg STK-MED ONCE .ROUTE ; Start 04/03/20 at 12:52; Stop 04/03/20 at 12:53; Status DC Rocuronium Faith (Zemuron) 100 mg STK-MED ONCE .ROUTE ; Start 04/03/20 at 12:54; Stop 04/03/20 at 12:54; Status DC Mineral Oil (Muri-Lube) 10 ml STK-MED ONCE MC ; Start 04/03/20 at 13:08; Stop 04/03/20 at 13:08; Status DC Bupivacaine HCl/ Epinephrine Bitart (Sensorcaine-Epi 0.25%-1:948388 Mpf) 30 ml STK-MED ONCE .ROUTE Last administered on 04/03/20at 14:28; Start 04/03/20 at 13:08; Stop 04/03/20 at 13:08; Status DC Cefazolin Sodium 3 gm/Dextrose 100 ml @ 200 mls/hr 1X PREOP ONCE IV Last administered on 04/03/20at 14:22; Start 04/03/20 at 14:00; Stop 04/03/20 at 14:29; Status DC Glycopyrrolate (Robinul) 1 mg STK-MED ONCE .ROUTE ; Start 04/03/20 at 14:31; Stop 04/03/20 at 14:31; Status DC Sevoflurane (Ultane) 90 ml STK-MED ONCE IH ; Start 04/03/20 at 14:38; Stop 04/03/20 at 14:38; Status DC Rocuronium Faith (Zemuron) 50 mg STK-MED ONCE .ROUTE ; Start 04/03/20 at 14:53; Stop 04/03/20 at 14:53; Status DC Fentanyl Citrate (Fentanyl 2ml Vial) 100 mcg STK-MED ONCE .ROUTE ; Start 04/03/20 at 15:53; Stop 04/03/20 at 15:53; Status DC Fentanyl Citrate (Fentanyl 2ml Vial) 25 mcg PRN Q5MIN PRN IV MILD PAIN 1-3; Start 04/03/20 at 16:30; Stop 04/04/20 at 16:29; Status DC Fentanyl Citrate (Fentanyl 2ml Vial) 50 mcg PRN Q5MIN PRN IV MODERATE TO SEVERE PAIN Last administered on 04/03/20at 17:34; Start 04/03/20 at 16:30; Stop 04/04/20 at 16:29; Status DC Morphine Sulfate (Morphine Sulfate) 2 mg PRN Q10MIN PRN IV MILD PAIN 1-3; Sta rt 04/03/20 at 16:30; Stop 04/04/20 at 16:29; Status DC Morphine Sulfate (Morphine Sulfate) 4 mg PRN Q10MIN PRN IV Moderate to Severe Pain; Start 04/03/20 at 16:30; Stop 04/04/20 at 16:29; Status DC Hydromorphone HCl (Dilaudid) 0.5 mg PRN Q10MIN PRN IV Moderate to severe pain; Start 04/03/20 at 16:30; Stop 04/04/20 at 16:29; Status DC Insulin Human Lispro (HumaLOG VIAL for OP,RR ONLY) 0-10 units PRN Q1HR PRN SQ PER PROTOCOL Last administered on 04/03/20at 17:09; Start 04/03/20 at 16:30; Stop 04/04/20 at 16:29; Status DC Fentanyl Citrate (Fentanyl 2ml Vial) 100 mcg STK-MED ONCE .ROUTE ; Start 04/03/20 at 17:23; Stop 04/03/20 at 17:24; Status DC Insulin Human Lispro (HumaLOG) 0-7 UNITS TIDWMEALS SQ Last administered on 04/07/20at 07:49; Start 04/04/20 at 13:10 Dextrose (Dextrose 50%-Water Syringe) 12.5 gm PRN Q15MIN PRN IV SEE COMMENTS; Start 04/04/20 at 13:15 Atorvastatin Calcium (Lipitor) 20 mg HS PO Last administered on 04/06/20at 21:06; Start 04/05/20 at 21:00 Lisinopril (Prinivil) 20 mg DAILY PO ; Start 04/06/20 at 09:00; Stop 04/06/20 at 08:31; Status DC Insulin Human Lispro (HumaLOG) 8 units TIDWMEALS SQ Last administered on 04/07/20at 07:55; Start 04/06/20 at 08:00 Insulin Glargine (Lantus Syringe) 30 unit QHS SQ Last administered on 04/06/20at 21:10; Start 04/05/20 at 21:00 Insulin Human Lispro (HumaLOG) 9 units 1X ONCE SQ Last administered on 04/05/20at 21:23; Start 04/05/20 at 21:00; Stop 04/05/20 at 21:01; Status DC Ondansetron HCl (Zofran) 4 mg PRN Q4HRS PRN IVP NAUSEA/VOMITING Last admini stered on 04/07/20at 07:46; Start 04/06/20 at 04:45 Sodium Chloride 1,000 ml @ 75 mls/hr [id number] IV Last administered on 04/06/20at 21:10; Start 04/06/20 at 08:30 Acetaminophen (Tylenol) 650 mg PRN Q4HRS PRN PO MILD PAIN 1-3 Last administered on 04/06/20at 12:38; Start 04/06/20 at 12:30 Promethazine HCl (Phenergan) 12.5 mg PRN Q6HRS PRN PO NAUSEA/VOMITING Last administered on 04/07/20at 03:26; Start 04/06/20 at 14:15; Stop 04/07/20 at 07:21; Status DC Acetaminophen/ Hydrocodone Bitart (Lortab 5/325) 1 tab PRN Q6HRS PRN PO PAIN; Start 04/06/20 at 21:00 Prochlorperazine Edisylate (Compazine) 10 mg PRN Q6HRS PRN IV NAUSEA/VOMITING; Start 04/07/20 at 07:30 Active Scripts Active Reported Trulicity (Dulaglutide) 0.75 Mg/0.5 Ml Pen.injctr 0.75 Mg SQ WEEKLY Novolog (Insulin Aspart) 100 Unit/1 Ml Cartridge 25 Unit SQ TIDAC Lantus Solostar (Insulin Glargine,Hum.rec.anlog) 100 Unit/1 Ml Insuln.pen 60 Unit SQ QHS Lipitor (Atorvastatin Calcium) 20 Mg Tablet 1 Tab PO HS Lisinopril 20 Mg Tablet 1 Tab PO DAILY Vitals/I & O Vital Sign - Last 24 Hours 04/06/20 04/06/20 04/06/20 04/06/20 11:04 15:00 16:23 19:00 Temp 98.1 97.9 98.7 98.1 97.9 98.7 Pulse 71 70 72 Resp 18 17 20 B/P (MAP) 137/59 (85) 153/70 (97) 148/68 (94) Pulse Ox 93 93 88 96 O2 Delivery Nasal Cannula Nasal Cannula Room Air Nasal Cannula O2 Flow Rate 4.0 4.0 2.0 04/06/20 04/06/20 04/07/20 04/07/20 20:00 23:00 03:00 07:00 Temp 98.4 97.9 98.1 98.4 97.9 98.1 Pulse 71 73 78 Resp 20 20 20 B/P (MAP) 138/61 (86) 143/59 (87) 146/54 (84) Pulse Ox 95 94 95 O2 Delivery Nasal Cannula Nasal Cannula Nasal Cannula Nasal Cannula O2 Flow Rate 2.0 2.0 2.0 2.0 04/07/20 08:00 O2 Delivery Nasal Cannula O2 Flow Rate 2.0 Intake and Output 04/06/20 04/06/20 04/07/20 15:00 23:00 07:00 Output Total 100 ml Balance -100 ml Justicifation of Admission Dx: Justifications for Admission: Justification of Admission Dx: N/A JG DOMINGUEZ MD Apr 07, 2020 09:29
[2020-04-07] MEDS: IV NORMAL SALINE 1000ML BAG 1,000 ML IV SCH (10:28)
[2020-04-07] MEDS: PROCHLORPERAZINE 10 MG/2 ML VIAL. IV PRN ×3 (10:28→22:53)
[2020-04-07 11:00] VITALS: BP 152/53
--- NOTE | 2020-04-07 12:39 | PDOC ---
SUBJECTIVE ROS Just worked with PT In chair , mild Shortness of breath, Good UOP OBJECTIVE Vital Signs Vital Signs Date Time Temp Pulse Resp B/P (MAP) Pulse Ox O2 Delivery O2 Flow Rate FiO2 04/07/20 11:31 16 Nasal Cannula 2.0 04/07/20 11:00 98.7 74 152/53 (86) 95 98.7 I & 0 Intake and Output 04/07/20 07:00 Output Total 100 ml Balance -100 ml Emesis 100 ml # Voids 2 PHYSICAL EXAM Physical Exam General: Alert, Oriented X3, Cooperative, No acute distress HEENT: Atraumatic, PERRLA Lungs: Clear to auscultation Heart: Regular rate Abdomen: Normal bowel sounds, Soft Extremities: No clubbing, No cyanosis Skin: No breakdown Neuro: Normal speech Psych/Mental Status: Mental status NL, Mood NL MUSCULOSKELETAL: No joint tenderness, No deformity, No swelling DIAGNOSIS/ASSESSMENT Assessment & Plan YRN -Cr peaked at 4.8- Improving 2.0 this am E-Lytes stable Supportive care, avoid Nephrotoxins CKD stage 2 per , followed by endo Small bowel obstruction Umbilical hernia- Status post laparotomy with repair of recurrent incisional hernia Essential hypertension- Lisinopril held sec to YRN Diabetes mellitus type 2 insulin required- follows with Dona Cortez Morbid obesity with a BMI of 51 COMMENT/RELEVANT DATA Meds Current Medications Medications (Trade) Dose Ordered Sig/Bethany Start Time Stop Time Status Last Admin Dose Admin Acetaminophen (Tylenol) 650 mg PRN Q4HRS PRN 04/06/20 12:30 04/06/20 12:38 650 MG Acetaminophen/ Hydrocodone Bitart (Lortab 5/325) 1 tab PRN Q6HRS PRN 04/06/20 21:00 04/07/20 10:39 1 TAB Atorvastatin Calcium (Lipitor) 20 mg HS 04/05/20 21:00 04/06/20 21:06 20 MG Benzocaine (Hurricaine One) 1 spray 1X ONCE 04/03/20 09:30 04/03/20 09:31 DC 04/03/20 09:21 1 SPRAY Bupivacaine HCl/ Epinephrine Bitart (Sensorcaine-Epi 0.25%-1:869811 Mpf) 30 ml STK-MED ONCE 04/03/20 13:08 04/03/20 13:08 DC 04/03/20 14:28 10 ML Cefazolin Sodium 3 gm/Dextrose 100 ml @ 200 mls/hr 1X PREOP ONCE 04/03/20 14:00 04/03/20 14:29 DC 04/03/20 14:22 200 MLS/HR Dexamethasone Sodium Phosphate (Decadron) 4 mg STK-MED ONCE 04/03/20 12:52 04/03/20 12:52 DC Dextrose (Dextrose 50%-Water Syringe) 12.5 gm PRN Q15MIN PRN 04/04/20 13:15 Fentanyl Citrate (Fentanyl 2ml Vial) 100 mcg STK-MED ONCE 04/03/20 17:23 04/03/20 17:24 DC Glycopyrrolate (Robinul) 1 mg STK-MED ONCE 04/03/20 14:31 04/03/20 14:31 DC Hydromorphone HCl (Dilaudid) 0.5 mg PRN Q10MIN PRN 04/03/20 16:30 04/04/20 16:29 DC Insulin Glargine (Lantus Syringe) 30 unit QHS 04/05/20 21:00 04/06/20 21:10 30 UNIT Insulin Human Lispro (HumaLOG VIAL for OP,RR ONLY) 0-10 units PRN Q1HR PRN 04/03/20 16:30 04/04/20 16:29 DC 04/03/20 17:09 4 UNIT Insulin Human Lispro (HumaLOG) 9 units 1X ONCE 04/05/20 21:00 04/05/20 21:01 DC 04/05/20 21:23 9 UNITS Lidocaine HCl (Xylocaine-Mpf 1% 2ml Vial) 2 ml PRN 1X PRN 04/03/20 10:45 04/04/20 10:44 DC Lidocaine HCl (Xylocaine-Mpf 1% 5ml Vial) 5 ml STK-MED ONCE 04/03/20 12:52 04/03/20 12:52 DC Lisinopril (Prinivil) 20 mg DAILY 04/06/20 09:00 04/06/20 08:31 DC Mineral Oil (Muri-Lube) 10 ml STK-MED ONCE 04/03/20 13:08 04/03/20 13:08 DC Morphine Sulfate (Morphine Sulfate) 4 mg PRN Q10MIN PRN 04/03/20 16:30 04/04/20 16:29 DC Ondansetron HCl (Zofran) 4 mg PRN Q4HRS PRN 04/06/20 04:45 04/07/20 11:40 4 MG Prochlorperazine Edisylate (Compazine) 10 mg PRN Q6HRS PRN 04/07/20 07:30 04/07/20 10:28 10 MG Promethazine HCl (Phenergan) 12.5 mg PRN Q6HRS PRN 04/06/20 14:15 04/07/20 07:21 DC 04/07/20 03:26 12.5 MG Propofol (Diprivan) 200 mg STK-MED ONCE 04/03/20 12:52 04/03/20 12:52 DC Ringer's Solution 1,000 ml @ 30 mls/hr Q24H 04/03/20 10:45 04/03/20 22:44 DC 04/03/20 13:00 30 MLS/HR Rocuronium Goodrich (Zemuron) 50 mg STK-MED ONCE 04/03/20 14:53 04/03/20 14:53 DC Sevoflurane (Ultane) 90 ml STK-MED ONCE 04/03/20 14:38 04/03/20 14:38 DC Sodium Chloride 1,000 ml @ 75 mls/hr [id number] 04/06/20 08:30 04/07/20 10:28 75 MLS/HR Lab Laboratory Tests Test 04/06/20 16:19 04/06/20 20:35 04/07/20 05:00 04/07/20 07:34 Glucose (Fingerstick) 195 mg/dL (70-99) 212 mg/dL (70-99) 309 mg/dL (70-99) Sodium Level 137 mmol/L (136-145) Potassium Level 4.3 mmol/L (3.5-5.1) Chloride Level 99 mmol/L (98-107) Carbon Dioxide Level 27 mmol/L (21-32) Anion Gap 11 (6-14) Blood Urea Nitrogen 67 mg/dL (-20) Creatinine 2.0 mg/dL (0.6-1.0) Estimated GFR (Cockcroft-Gault) 24.7 Glucose Level 294 mg/dL (70-99) Calcium Level 8.7 mg/dL (8.5-10.1) Test 04/07/20 11:29 Glucose (Fingerstick) 260 mg/dL (70-99) Results All relevant outside records, renal labs, imaging studies, telemetry/EKG's were reviewed. Justicifation of Admission Dx: Justifications for Admission: Justification of Admission Dx: N/A DIANA BARKLEY MD Apr 07, 2020 12:39
[2020-04-07] MEDS: ATORVASTATIN CALCIUM 20 MG TABLET PO SCH (19:08)
[2020-04-07 19:43] VITALS: BP 165/67
[2020-04-07] MEDS: INSULIN GLARGINE SYRINGE. SQ SCH (20:52)
--- NOTE | 2020-04-07 20:52 | NUR ---
Medication administration: Patients glucose was 183 and not eating much, patient requested only 20 units of Lantus instead of the ordered 30 units.
[2020-04-07 23:01] VITALS: BP 149/52
[2020-04-08] MEDS: ONDANSETRON PF 4 MG/2 ML VIAL. IVP PRN ×5 (01:43→20:36)
[2020-04-08 02:51] VITALS: BP 140/69
[2020-04-08] MEDS: IV NORMAL SALINE 1000ML BAG 1,000 ML IV SCH ×2 (03:27→17:00)
[2020-04-08 06:20] LABS: BASO % 0 % (0-3); EOS # 0.1 x10^3/uL (0.0-0.7); EOS % 1 % (0-3); HEMATOCRIT 34.6 % (36.0-47.0); HEMOGLOBIN 11.8 g/dL (12.0-15.5); LYMPH # 0.7 x10^3/uL (1.0-4.8); LYMPH % 15 % (24-48); MEAN CORPUSCULAR HEMOGLOBIN 31 pg (25-35); MEAN CORPUSCULAR HGB CONC 34 g/dL (31-37); MEAN CORPUSCULAR VOLUME 91 fL (79-100); MONO # 0.6 x10^3/uL (0.0-1.1); MONO % 13 % (0-9); NEUT # 3.4 x10^3/uL (1.8-7.7); NEUT % 70 % (31-73); PLATELET COUNT 243 x10^3/uL (140-400); RED BLOOD COUNT 3.79 x10^6/uL (3.50-5.40); RED CELL DISTRIBUTION WIDTH 14.4 % (11.5-14.5); WHITE BLOOD COUNT 4.8 x10^3/uL (4.0-11.0)
[2020-04-08 07:00] VITALS: BP 150/54
[2020-04-08 07:06] LABS: ALBUMIN 2.7 g/dL (3.4-5.0); ALBUMIN/GLOBULIN RATIO 0.6 (1.0-1.7); CALCIUM 8.5 mg/dL (8.5-10.1); CREATININE 1.6 mg/dL (0.6-1.0); POTASSIUM 4.1 mmol/L (3.5-5.1); TOTAL BILIRUBIN 0.5 mg/dL (0.2-1.0)
[2020-04-08] MEDS: INSULIN LISPRO 300 UNITS/3 ML VIAL. SQ SCH ×6 (07:45→17:11)
[2020-04-08 08:10] LABS: SODIUM, URINE <20 mmol/L (Not Estab.); UR POTASSIUM 28.5 mmol/L (Not Estab.)
--- NOTE | 2020-04-08 10:40 | PDOC ---
SURGICAL PROGRESS NOTE Subjective Patient feeling much better today had a large bowel movement Vital Signs Vital Signs Date Time Temp Pulse Resp B/P (MAP) Pulse Ox O2 Delivery O2 Flow Rate FiO2 04/08/20 08:00 Room Air 04/08/20 07:00 98.3 100 20 150/54 (86) 95 98.3 04/08/20 02:51 2.0 I&O Intake and Output 04/08/20 07:00 Intake Total 200 ml Balance 200 ml Intake Oral 200 ml # Voids 2 PATIENT HAS A JANE: No General: Alert, Oriented X3, Cooperative, No acute distress Abdomen: Normal bowel sounds, Soft, No tenderness, Other (Wound clean dry and intact) Labs Laboratory Tests Test 04/06/20 10:43 04/06/20 12:05 04/06/20 16:19 04/06/20 20:35 Glucose (Fingerstick) 287 mg/dL (70-99) 195 mg/dL (70-99) 212 mg/dL (70-99) O2 Saturation 87 % (92-99) Arterial Blood pH 7.38 (7.35-7.45) Arterial Blood pCO2 at Patient Temp 41 mmHg (35-46) Arterial Blood pO2 at Patient Temp 53 mmHg (65-108) Arterial Blood HCO3 24 mmol/L (21-28) Arterial Blood Base Excess -1 mmol/L (-3-3) FiO2 Ra Test 04/07/20 05:00 04/07/20 07:34 04/07/20 11:29 04/07/20 16:29 Sodium Level 137 mmol/L (136-145) Potassium Level 4.3 mmol/L (3.5-5.1) Chloride Level 99 mmol/L (98-107) Carbon Dioxide Level 27 mmol/L (21-32) Anion Gap 11 (6-14) Blood Urea Nitrogen 67 mg/dL (7-20) Creatinine 2.0 mg/dL (0.6-1.0) Estimated GFR (Cockcroft-Gault) 24.7 Glucose Level 294 mg/dL (70-99) Calcium Level 8.7 mg/dL (8.5-10.1) Glucose (Fingerstick) 309 mg/dL (70-99) 260 mg/dL (70-99) 211 mg/dL (70-99) Test 7/25/20 20:41 04/08/20 03:19 04/08/20 05:26 04/08/20 07:23 Glucose (Fingerstick) 183 mg/dL (70-99) 248 mg/dL (70-99) 233 mg/dL (70-99) White Blood Count 4.8 x10^3/uL (4.0-11.0) Red Blood Count 3.79 x10^6/uL (3.50-5.40) Hemoglobin 11.8 g/dL (12.0-15.5) Hematocrit 34.6 % (36.0-47.0) Mean Corpuscular Volume 91 fL (79-100) Mean Corpuscular Hemoglobin 31 pg (25-35) Mean Corpuscular Hemoglobin Concent 34 g/dL (31-37) Red Cell Distribution Width 14.4 % (11.5-14.5) Platelet Count 243 x10^3/uL (140-400) Neutrophils (%) (Auto) 70 % (31-73) Lymphocytes (%) (Auto) 15 % (24-48) Monocytes (%) (Auto) 13 % (0-9) Eosinophils (%) (Auto) 1 % (0-3) Basophils (%) (Auto) 0 % (0-3) Neutrophils # (Auto) 3.4 x10^3/uL (1.8-7.7) Lymphocytes # (Auto) 0.7 x10^3/uL (1.0-4.8) Monocytes # (Auto) 0.6 x10^3/uL (0.0-1.1) Eosinophils # (Auto) 0.1 x10^3/uL (0.0-0.7) Basophils # (Auto) 0.0 x10^3/uL (0.0-0.2) Sodium Level 141 mmol/L (136-145) Potassium Level 4.1 mmol/L (3.5-5.1) Chloride Level 104 mmol/L (98-107) Carbon Dioxide Level 27 mmol/L (21-32) Anion Gap 10 (6-14) Blood Urea Nitrogen 62 mg/dL (7-20) Creatinine 1.6 mg/dL (0.6-1.0) Estimated GFR (Cockcroft-Gault) 32.0 BUN/Creatinine Ratio 39 (6-20) Glucose Level 259 mg/dL (70-99) Lactic Acid Level 1.0 mmol/L (0.4-2.0) Calcium Level 8.5 mg/dL (8.5-10.1) Total Bilirubin 0.5 mg/dL (0.2-1.0) Aspartate Amino Transf (AST/SGOT) 23 U/L (15-37) Alanine Aminotransferase (ALT/SGPT) 40 U/L (14-59) Alkaline Phosphatase 41 U/L (46-116) Total Protein 7.0 g/dL (6.4-8.2) Albumin 2.7 g/dL (3.4-5.0) Albumin/Globulin Ratio 0.6 (1.0-1.7) Laboratory Tests Test 04/07/20 11:29 04/07/20 16:29 04/07/20 20:41 04/08/20 03:19 Glucose (Fingerstick) 260 mg/dL (70-99) 211 mg/dL (70-99) 183 mg/dL (70-99) 248 mg/dL (70-99) Test 04/08/20 05:26 04/08/20 07:23 White Blood Count 4.8 x10^3/uL (4.0-11.0) Red Blood Count 3.79 x10^6/uL (3.50-5.40) Hemoglobin 11.8 g/dL (12.0-15.5) Hematocrit 34.6 % (36.0-47.0) Mean Corpuscular Volume 91 fL (79-100) Mean Corpuscular Hemoglobin 31 pg (25-35) Mean Corpuscular Hemoglobin Concent 34 g/dL (31-37) Red Cell Distribution Width 14.4 % (11.5-14.5) Platelet Count 243 x10^3/uL (140-400) Neutrophils (%) (Auto) 70 % (31-73) Lymphocytes (%) (Auto) 15 % (24-48) Monocytes (%) (Auto) 13 % (0-9) Eosinophils (%) (Auto) 1 % (0-3) Basophils (%) (Auto) 0 % (0-3) Neutrophils # (Auto) 3.4 x10^3/uL (1.8-7.7) Lymphocytes # (Auto) 0.7 x10^3/uL (1.0-4.8) Monocytes # (Auto) 0.6 x10^3/uL (0.0-1.1) Eosinophils # (Auto) 0.1 x10^3/uL (0.0-0.7) Basophils # (Auto) 0.0 x10^3/uL (0.0-0.2) Sodium Level 141 mmol/L (136-145) Potassium Level 4.1 mmol/L (3.5-5.1) Chloride Level 104 mmol/L (98-107) Carbon Dioxide Level 27 mmol/L (21-32) Anion Gap 10 (6-14) Blood Urea Nitrogen 62 mg/dL (7-20) Creatinine 1.6 mg/dL (0.6-1.0) Estimated GFR (Cockcroft-Gault) 32.0 BUN/Creatinine Ratio 39 (6-20) Glucose Level 259 mg/dL (70-99) Lactic Acid Level 1.0 mmol/L (0.4-2.0) Calcium Level 8.5 mg/dL (8.5-10.1) Total Bilirubin 0.5 mg/dL (0.2-1.0) Aspartate Amino Transf (AST/SGOT) 23 U/L (15-37) Alanine Aminotransferase (ALT/SGPT) 40 U/L (14-59) Alkaline Phosphatase 41 U/L (46-116) Total Protein 7.0 g/dL (6.4-8.2) Albumin 2.7 g/dL (3.4-5.0) Albumin/Globulin Ratio 0.6 (1.0-1.7) Glucose (Fingerstick) 233 mg/dL (70-99) Problem List Problems Medical Problems: (1) Small bowel obstruction Status: Acute (2) Umbilical hernia Status: Acute Assessment/Plan Status post repair of incarcerated ventral hernia Advance diet Justicifation of Admission Dx: Justifications for Admission: Justification of Admission Dx: N/A TANYA CLARKE MD Apr 08, 2020 10:40
[2020-04-08 11:00] VITALS: BP 142/59
--- NOTE | 2020-04-08 13:34 | PDOC ---
SUBJECTIVE ROS Pt sleeping, per she is feeling much better today Good UOP, No acute concerns OBJECTIVE Vital Signs Vital Signs Date Time Temp Pulse Resp B/P (MAP) Pulse Ox O2 Delivery O2 Flow Rate FiO2 04/08/20 08:00 Room Air 04/08/20 07:00 98.3 100 20 150/54 (86) 95 98.3 04/08/20 02:51 2.0 I & 0 Intake and Output 04/08/20 07:00 Intake Total 200 ml Balance 200 ml Intake Oral 200 ml # Voids 2 PHYSICAL EXAM Physical Exam General: Alert, Oriented X3, Cooperative, No acute distress HEENT: Atraumatic, PERRLA Lungs: Clear to auscultation Heart: Regular rate Abdomen: Normal bowel sounds, Soft Extremities: No clubbing, No cyanosis Skin: No breakdown Neuro: Normal speech Psych/Mental Status: Mental status NL, Mood NL MUSCULOSKELETAL: No joint tenderness, No deformity, No swelling DIAGNOSIS/ASSESSMENT Diagnosis Assessment & Plan YRN -Cr peaked at 4.8- Improving 1.6 this am E-Lytes stable Supportive care, avoid Nephrotoxins CKD stage 2 per , followed by endo Small bowel obstruction Umbilical hernia- Status post laparotomy with repair of recurrent incisional hernia Essential hypertension- Lisinopril held sec to YRN Diabetes mellitus type 2 insulin required- follows with Dona Cortez Morbid obesity with a BMI of 51 COMMENT/RELEVANT DATA Meds Current Medications Medications (Trade) Dose Ordered Sig/Bethany Start Time Stop Time Status Last Admin Dose Admin Acetaminophen (Tylenol) 650 mg PRN Q4HRS PRN 04/06/20 12:30 04/06/20 12:38 650 MG Acetaminophen/ Hydrocodone Bitart (Lortab 5/325) 1 tab PRN Q6HRS PRN 04/06/20 21:00 04/07/20 10:39 1 TAB Atorvastatin Calcium (Lipitor) 20 mg HS 04/05/20 21:00 04/06/20 21:06 20 MG Benzocaine (Hurricaine One) 1 spray 1X ONCE 04/03/20 09:30 04/03/20 09:31 DC 04/03/20 09:21 1 SPRAY Bupivacaine HCl/ Epinephrine Bitart (Sensorcaine-Epi 0.25%-1:[id number] Mpf) 30 ml STK-MED ONCE 04/03/20 13:08 04/03/20 13:08 DC 04/03/20 14:28 10 ML Cefazolin Sodium 3 gm/Dextrose 100 ml @ 200 mls/hr 1X PREOP ONCE 04/03/20 14:00 04/03/20 14:29 DC 04/03/20 14:22 200 MLS/HR Dexamethasone Sodium Phosphate (Decadron) 4 mg STK-MED ONCE 04/03/20 12:52 04/03/20 12:52 DC Dextrose (Dextrose 50%-Water Syringe) 12.5 gm PRN Q15MIN PRN 04/04/20 13:15 Fentanyl Citrate (Fentanyl 2ml Vial) 100 mcg STK-MED ONCE 04/03/20 17:23 04/03/20 17:24 DC Glycopyrrolate (Robinul) 1 mg STK-MED ONCE 04/03/20 14:31 04/03/20 14:31 DC Hydromorphone HCl (Dilaudid) 0.5 mg PRN Q10MIN PRN 04/03/20 16:30 04/04/20 16:29 DC Insulin Glargine (Lantus Syringe) 30 unit QHS 04/05/20 21:00 04/07/20 20:52 20 UNIT Insulin Human Lispro (HumaLOG VIAL for OP,RR ONLY) 0-10 units PRN Q1HR PRN 04/03/20 16:30 04/04/20 16:29 DC 04/03/20 17:09 4 UNIT Insulin Human Lispro (HumaLOG) 9 units 1X ONCE 04/05/20 21:00 04/05/20 21:01 DC 04/05/20 21:23 9 UNITS Lidocaine HCl (Xylocaine-Mpf 1% 2ml Vial) 2 ml PRN 1X PRN 04/03/20 10:45 04/04/20 10:44 DC Lidocaine HCl (Xylocaine-Mpf 1% 5ml Vial) 5 ml STK-MED ONCE 04/03/20 12:52 04/03/20 12:52 DC Lisinopril (Prinivil) 20 mg DAILY 04/06/20 09:00 04/06/20 08:31 DC Mineral Oil (Muri-Lube) 10 ml STK-MED ONCE 04/03/20 13:08 04/03/20 13:08 DC Morphine Sulfate (Morphine Sulfate) 4 mg PRN Q10MIN PRN 04/03/20 16:30 04/04/20 16:29 DC Ondansetron HCl (Zofran) 4 mg PRN Q4HRS PRN 04/06/20 04:45 04/08/20 12:17 4 MG Prochlorperazine Edisylate (Compazine) 10 mg PRN Q6HRS PRN 04/07/20 07:30 04/07/20 22:53 10 MG Promethazine HCl (Phenergan) 12.5 mg PRN Q6HRS PRN 04/06/20 14:15 04/07/20 07:21 DC 04/07/20 03:26 12.5 MG Propofol (Diprivan) 200 mg STK-MED ONCE 04/03/20 12:52 04/03/20 12:52 DC Ringer's Solution 1,000 ml @ 30 mls/hr Q24H 04/03/20 10:45 04/03/20 22:44 DC 04/03/20 13:00 30 MLS/HR Rocuronium [place] (Zemuron) 50 mg STK-MED ONCE 04/03/20 14:53 04/03/20 14:53 DC Sevoflurane (Ultane) 90 ml STK-MED ONCE 04/03/20 14:38 04/03/20 14:38 DC Sodium Chloride 1,000 ml @ 75 mls/hr [id number] 04/06/20 08:30 04/08/20 03:27 75 MLS/HR Lab Laboratory Tests Test 04/07/20 16:29 04/07/20 20:41 04/08/20 03:19 04/08/20 05:26 Glucose (Fingerstick) 211 mg/dL (70-99) 183 mg/dL (70-99) 248 mg/dL (70-99) White Blood Count 4.8 x10^3/uL (4.0-11.0) Red Blood Count 3.79 x10^6/uL (3.50-5.40) Hemoglobin 11.8 g/dL (12.0-15.5) Hematocrit 34.6 % (36.0-47.0) Mean Corpuscular Volume 91 fL (79-100) Mean Corpuscular Hemoglobin 31 pg (25-35) Mean Corpuscular Hemoglobin Concent 34 g/dL (31-37) Red Cell Distribution Width 14.4 % (11.5-14.5) Platelet Count 243 x10^3/uL (140-400) Neutrophils (%) (Auto) 70 % (31-73) Lymphocytes (%) (Auto) 15 % (24-48) Monocytes (%) (Auto) 13 % (0-9) Eosinophils (%) (Auto) 1 % (0-3) Basophils (%) (Auto) 0 % (0-3) Neutrophils # (Auto) 3.4 x10^3/uL (1.8-7.7) Lymphocytes # (Auto) 0.7 x10^3/uL (1.0-4.8) Monocytes # (Auto) 0.6 x10^3/uL (0.0-1.1) Eosinophils # (Auto) 0.1 x10^3/uL (0.0-0.7) Basophils # (Auto) 0.0 x10^3/uL (0.0-0.2) Sodium Level 141 mmol/L (136-145) Potassium Level 4.1 mmol/L (3.5-5.1) Chloride Level 104 mmol/L (98-107) Carbon Dioxide Level 27 mmol/L (21-32) Anion Gap 10 (6-14) Blood Urea Nitrogen 62 mg/dL (7-20) Creatinine 1.6 mg/dL (0.6-1.0) Estimated GFR (Cockcroft-Gault) 32.0 BUN/Creatinine Ratio 39 (6-20) Glucose Level 259 mg/dL (70-99) Lactic Acid Level 1.0 mmol/L (0.4-2.0) Calcium Level 8.5 mg/dL (8.5-10.1) Total Bilirubin 0.5 mg/dL (0.2-1.0) Aspartate Amino Transf (AST/SGOT) 23 U/L (15-37) Alanine Aminotransferase (ALT/SGPT) 40 U/L (14-59) Alkaline Phosphatase 41 U/L (46-116) Total Protein 7.0 g/dL (6.4-8.2) Albumin 2.7 g/dL (3.4-5.0) Albumin/Globulin Ratio 0.6 (1.0-1.7) Test 04/08/20 07:23 04/08/20 11:50 Glucose (Fingerstick) 233 mg/dL (70-99) 193 mg/dL (70-99) Results All relevant outside records, renal labs, imaging studies, telemetry/EKG's were reviewed. Justicifation of Admission Dx: Justifications for Admission: Justification of Admission Dx: N/A DIANA BARKLEY MD Apr 08, 2020 13:34
--- NOTE | 2020-04-08 14:31 | PDOC ---
PROGRESS NOTES Chief Complaint Chief Complaint Assessment/Plan Small bowel obstruction Umbilical hernia Status post laparotomy with repair of recurrent incisional hernia Essential hypertension Diabetes mellitus type 2 insulin required Morbid obesity with a BMI of 51 Acute renal failure vasomotor etiology most likely improved. Plan Diet as per home energy consultant Awaiting for return of bowel function will send imaging studies symptomatic relief of symptoms. renal function improved follow urine output Encourage ambulation Incentive spirometry Resume home medication Reassess in the a.m. Further recommendations based on the clinical course DVT prophylaxis with SCD and teds History of Present Illness History of Present Illness 04/06 Patient seems to be quite sleepy today again according to nursing staff during my encounter the patient was awake and with no complaints. Patient is ambulating and passing gases surgical elastic knitter hand frame recommendations were noted and greatly appreciated. Plan of care discussed with nursing staff 04/07/2020 Patient quite nauseous, no bowel sounds, says she has passed gas but does not feel well, renal function noted and improved. Reassurance provided, discussed with nursing staff 04/08/2020 No acute events reported overnight, case discussed with nursing staff patient in no acute distress no complaints during my visit family members at bedside Vitals Vitals Vital Signs Date Time Temp Pulse Resp B/P (MAP) Pulse Ox O2 Delivery O2 Flow Rate FiO2 04/08/20 08:00 Room Air 04/08/20 07:00 98.3 100 20 150/54 (86) 95 98.3 04/08/20 02:51 2.0 Physical Exam General: Alert, Oriented X3, Cooperative, No acute distress Heart: Regular rate, Normal S1, Normal S2 Lungs: Clear Abdomen: Normal bowel sounds, Soft, No tenderness, Other (Wound clean dry and intact) Extremities: No clubbing, No cyanosis Skin: No breakdown Labs LABS Laboratory Tests Test 04/07/20 16:29 04/07/20 20:41 04/08/20 03:19 04/08/20 05:26 Glucose (Fingerstick) 211 mg/dL (70-99) 183 mg/dL (70-99) 248 mg/dL (70-99) White Blood Count 4.8 x10^3/uL (4.0-11.0) Red Blood Count 3.79 x10^6/uL (3.50-5.40) Hemoglobin 11.8 g/dL (12.0-15.5) Hematocrit 34.6 % (36.0-47.0) Mean Corpuscular Volume 91 fL (79-100) Mean Corpuscular Hemoglobin 31 pg (25-35) Mean Corpuscular Hemoglobin Concent 34 g/dL (31-37) Red Cell Distribution Width 14.4 % (11.5-14.5) Platelet Count 243 x10^3/uL (140-400) Neutrophils (%) (Auto) 70 % (31-73) Lymphocytes (%) (Auto) 15 % (24-48) Monocytes (%) (Auto) 13 % (0-9) Eosinophils (%) (Auto) 1 % (0-3) Basophils (%) (Auto) 0 % (0-3) Neutrophils # (Auto) 3.4 x10^3/uL (1.8-7.7) Lymphocytes # (Auto) 0.7 x10^3/uL (1.0-4.8) Monocytes # (Auto) 0.6 x10^3/uL (0.0-1.1) Eosinophils # (Auto) 0.1 x10^3/uL (0.0-0.7) Basophils # (Auto) 0.0 x10^3/uL (0.0-0.2) Sodium Level 141 mmol/L (136-145) Potassium Level 4.1 mmol/L (3.5-5.1) Chloride Level 104 mmol/L (98-107) Carbon Dioxide Level 27 mmol/L (21-32) Anion Gap 10 (6-14) Blood Urea Nitrogen 62 mg/dL (7-20) Creatinine 1.6 mg/dL (0.6-1.0) Estimated GFR (Cockcroft-Gault) 32.0 BUN/Creatinine Ratio 39 (6-20) Glucose Level 259 mg/dL (70-99) Lactic Acid Level 1.0 mmol/L (0.4-2.0) Calcium Level 8.5 mg/dL (8.5-10.1) Total Bilirubin 0.5 mg/dL (0.2-1.0) Aspartate Amino Transf (AST/SGOT) 23 U/L (15-37) Alanine Aminotransferase (ALT/SGPT) 40 U/L (14-59) Alkaline Phosphatase 41 U/L (46-116) Total Protein 7.0 g/dL (6.4-8.2) Albumin 2.7 g/dL (3.4-5.0) Albumin/Globulin Ratio 0.6 (1.0-1.7) Test 04/08/20 07:23 04/08/20 11:50 Glucose (Fingerstick) 233 mg/dL (70-99) 193 mg/dL (70-99) Review of Systems Review of Systems 10 point review of system is negative Assessment and Plan Assessmemt and Plan Problems Medical Problems: (1) Small bowel obstruction Status: Acute (2) Umbilical hernia Status: Acute Comment Review of Relevant I have reviewed the following items lisbeth (where applicable) has been applied. Labs Laboratory Tests Test 04/06/20 16:19 04/06/20 20:35 04/07/20 05:00 04/07/20 07:34 Glucose (Fingerstick) 195 mg/dL (70-99) 212 mg/dL (70-99) 309 mg/dL (70-99) Sodium Level 137 mmol/L (136-145) Potassium Level 4.3 mmol/L (3.5-5.1) Chloride Level 99 mmol/L (98-107) Carbon Dioxide Level 27 mmol/L (21-32) Anion Gap 11 (6-14) Blood Urea Nitrogen 67 mg/dL (7-20) Creatinine 2.0 mg/dL (0.6-1.0) Estimated GFR (Cockcroft-Gault) 24.7 Glucose Level 294 mg/dL (70-99) Calcium Level 8.7 mg/dL (8.5-10.1) Test 04/07/20 11:29 04/07/20 16:29 04/07/20 20:41 04/08/20 03:19 Glucose (Fingerstick) 260 mg/dL (70-99) 211 mg/dL (70-99) 183 mg/dL (70-99) 248 mg/dL (70-99) Test 04/08/20 05:26 04/08/20 07:23 04/08/20 11:50 White Blood Count 4.8 x10^3/uL (4.0-11.0) Red Blood Count 3.79 x10^6/uL (3.50-5.40) Hemoglobin 11.8 g/dL (12.0-15.5) Hematocrit 34.6 % (36.0-47.0) Mean Corpuscular Volume 91 fL (79-100) Mean Corpuscular Hemoglobin 31 pg (25-35) Mean Corpuscular Hemoglobin Concent 34 g/dL (31-37) Red Cell Distribution Width 14.4 % (11.5-14.5) Platelet Count 243 x10^3/uL (140-400) Neutrophils (%) (Auto) 70 % (31-73) Lymphocytes (%) (Auto) 15 % (24-48) Monocytes (%) (Auto) 13 % (0-9) Eosinophils (%) (Auto) 1 % (0-3) Basophils (%) (Auto) 0 % (0-3) Neutrophils # (Auto) 3.4 x10^3/uL (1.8-7.7) Lymphocytes # (Auto) 0.7 x10^3/uL (1.0-4.8) Monocytes # (Auto) 0.6 x10^3/uL (0.0-1.1) Eosinophils # (Auto) 0.1 x10^3/uL (0.0-0.7) Basophils # (Auto) 0.0 x10^3/uL (0.0-0.2) Sodium Level 141 mmol/L (136-145) Potassium Level 4.1 mmol/L (3.5-5.1) Chloride Level 104 mmol/L (98-107) Carbon Dioxide Level 27 mmol/L (21-32) Anion Gap 10 (6-14) Blood Urea Nitrogen 62 mg/dL (7-20) Creatinine 1.6 mg/dL (0.6-1.0) Estimated GFR (Cockcroft-Gault) 32.0 BUN/Creatinine Ratio 39 (6-20) Glucose Level 259 mg/dL (70-99) Lactic Acid Level 1.0 mmol/L (0.4-2.0) Calcium Level 8.5 mg/dL (8.5-10.1) Total Bilirubin 0.5 mg/dL (0.2-1.0) Aspartate Amino Transf (AST/SGOT) 23 U/L (15-37) Alanine Aminotransferase (ALT/SGPT) 40 U/L (14-59) Alkaline Phosphatase 41 U/L (46-116) Total Protein 7.0 g/dL (6.4-8.2) Albumin 2.7 g/dL (3.4-5.0) Albumin/Globulin Ratio 0.6 (1.0-1.7) Glucose (Fingerstick) 233 mg/dL (70-99) 193 mg/dL (70-99) Laboratory Tests Test 04/07/20 16:29 04/07/20 20:41 04/08/20 03:19 04/08/20 05:26 Glucose (Fingerstick) 211 mg/dL (70-99) 183 mg/dL (70-99) 248 mg/dL (70-99) White Blood Count 4.8 x10^3/uL (4.0-11.0) Red Blood Count 3.79 x10^6/uL (3.50-5.40) Hemoglobin 11.8 g/dL (12.0-15.5) Hematocrit 34.6 % (36.0-47.0) Mean Corpuscular Volume 91 fL (79-100) Mean Corpuscular Hemoglobin 31 pg (25-35) Mean Corpuscular Hemoglobin Concent 34 g/dL (31-37) Red Cell Distribution Width 14.4 % (11.5-14.5) Platelet Count 243 x10^3/uL (140-400) Neutrophils (%) (Auto) 70 % (31-73) Lymphocytes (%) (Auto) 15 % (24-48) Monocytes (%) (Auto) 13 % (0-9) Eosinophils (%) (Auto) 1 % (0-3) Basophils (%) (Auto) 0 % (0-3) Neutrophils # (Auto) 3.4 x10^3/uL (1.8-7.7) Lymphocytes # (Auto) 0.7 x10^3/uL (1.0-4.8) Monocytes # (Auto) 0.6 x10^3/uL (0.0-1.1) Eosinophils # (Auto) 0.1 x10^3/uL (0.0-0.7) Basophils # (Auto) 0.0 x10^3/uL (0.0-0.2) Sodium Level 141 mmol/L (136-145) Potassium Level 4.1 mmol/L (3.5-5.1) Chloride Level 104 mmol/L (98-107) Carbon Dioxide Level 27 mmol/L (21-32) Anion Gap 10 (6-14) Blood Urea Nitrogen 62 mg/dL (7-20) Creatinine 1.6 mg/dL (0.6-1.0) Estimated GFR (Cockcroft-Gault) 32.0 BUN/Creatinine Ratio 39 (6-20) Glucose Level 259 mg/dL (70-99) Lactic Acid Level 1.0 mmol/L (0.4-2.0) Calcium Level 8.5 mg/dL (8.5-10.1) Total Bilirubin 0.5 mg/dL (0.2-1.0) Aspartate Amino Transf (AST/SGOT) 23 U/L (15-37) Alanine Aminotransferase (ALT/SGPT) 40 U/L (14-59) Alkaline Phosphatase 41 U/L (46-116) Total Protein 7.0 g/dL (6.4-8.2) Albumin 2.7 g/dL (3.4-5.0) Albumin/Globulin Ratio 0.6 (1.0-1.7) Test 04/08/20 07:23 04/08/20 11:50 Glucose (Fingerstick) 233 mg/dL (70-99) 193 mg/dL (70-99) Microbiology 04/03/20 Urine Culture - Final, Complete Medications Current Medications Ondansetron HCl (Zofran) 8 mg 1X ONCE IVP Last administered on 04/03/20at 07:44; Start 04/03/20 at 07:30; Stop 04/03/20 at 07:31; Status DC Morphine Sulfate (Morphine Sulfate) 4 mg 1X ONCE IV Last administered on at 07:47; Start 04/03/20 at 07:30; Stop 04/03/20 at 07:31; Status DC Morphine Sulfate (Morphine Sulfate) 4 mg 1X ONCE IV Last administered on 04/03/20at 09:17; Start 04/03/20 at 09:15; Stop 04/03/20 at 09:16; Status DC Benzocaine (Hurricaine One) 1 spray STK-MED ONCE .ROUTE ; Start 04/03/20 at 09:11; Stop 04/03/20 at 09:11; Status DC Benzocaine (Hurricaine One) 1 spray 1X ONCE MM Last administered on 04/03/20at 09:21; Start 04/03/20 at 09:30; Stop 04/03/20 at 09:31; Status DC Ondansetron HCl (Zofran) 4 mg PRN Q8HRS PRN IV NAUSEA/VOMITING Last administered on 04/04/20at 03:19; Start 04/03/20 at 09:30; Stop 04/04/20 at 09:29; Status DC Morphine Sulfate (Morphine Sulfate) 4 mg PRN Q2HR PRN IV PAIN Last administered on 04/04/20at 07:28; Start 04/03/20 at 09:30; Stop 04/04/20 at 09:29; Status DC Sodium Chloride 1,000 ml @ 75 mls/hr [id number] IV Last administered on 04/04/20at 03:23; Start 04/03/20 at 09:17; Stop 04/04/20 at 09:16; Status DC Ringer's Solution 1,000 ml @ 30 mls/hr Q24H IV Last administered on 04/03/20at 13:00; Start 04/03/20 at 10:45; Stop 04/03/20 at 22:44; Status DC Lidocaine HCl (Xylocaine-Mpf 1% 2ml Vial) 2 ml PRN 1X PRN ID PRIOR TO IV START; Start 04/03/20 at 10:45; Stop 04/04/20 at 10:44; Status DC Prochlorperazine Edisylate (Compazine) 5 mg PACU PRN PRN IV NAUSEA, MRX1; Start 04/03/20 at 10:45; Stop 04/04/20 at 10:44; Status DC Hydromorphone HCl (Dilaudid) 1 mg 1X ONCE IV ; Start 04/03/20 at 11:00; Stop 04/03/20 at 11:01; Status DC Propofol (Diprivan) 200 mg STK-MED ONCE IV ; Start 04/03/20 at 12:52; Stop 04/03/20 at 12:52; Status DC Lidocaine HCl (Xylocaine-Mpf 1% 5ml Vial) 5 ml STK-MED ONCE .ROUTE ; Start 04/03/20 at 12:52; Stop 04/03/20 at 12:52; Status DC Ondansetron HCl (Zofran) 4 mg STK-MED ONCE .ROUTE ; Start 04/03/20 at 12:52; Stop 04/03/20 at 12:52; Status DC Dexamethasone Sodium Phosphate (Decadron) 4 mg STK-MED ONCE .ROUTE ; Start 04/03/20 at 12:52; Stop 04/03/20 at 12:52; Status DC Fentanyl Citrate (Fentanyl 2ml Vial) 100 mcg STK-MED ONCE .ROUTE ; Start 04/03/20 at 12:52; Stop 04/03/20 at 12:53; Status DC Rocuronium Barron (Zemuron) 100 mg STK-MED ONCE .ROUTE ; Start 04/03/20 at 12:54; Stop 04/03/20 at 12:54; Status DC Mineral Oil (Muri-Lube) 10 ml STK-MED ONCE MC ; Start 04/03/20 at 13:08; Stop 04/03/20 at 13:08; Status DC Bupivacaine HCl/ Epinephrine Bitart (Sensorcaine-Epi 0.25%-1:633396 Mpf) 30 ml STK-MED ONCE .ROUTE Last administered on 04/03/20at 14:28; Start 04/03/20 at 13:08; Stop 04/03/20 at 13:08; Status DC Cefazolin Sodium 3 gm/Dextrose 100 ml @ 200 mls/hr 1X PREOP ONCE IV Last administered on 04/03/20at 14:22; Start 04/03/20 at 14:00; Stop 04/03/20 at 14:29; Status DC Glycopyrrolate (Robinul) 1 mg STK-MED ONCE .ROUTE ; Start 04/03/20 at 14:31; Stop 04/03/20 at 14:31; Status DC Sevoflurane (Ultane) 90 ml STK-MED ONCE IH ; Start 04/03/20 at 14:38; Stop 04/03/20 at 14:38; Status DC Rocuronium Barron (Zemuron) 50 mg STK-MED ONCE .ROUTE ; Start 04/03/20 at 14:53; Stop 04/03/20 at 14:53; Status DC Fentanyl Citrate (Fentanyl 2ml Vial) 100 mcg STK-MED ONCE .ROUTE ; Start 04/03/20 at 15:53; Stop 04/03/20 at 15:53; Status DC Fentanyl Citrate (Fentanyl 2ml Vial) 25 mcg PRN Q5MIN PRN IV MILD PAIN 1-3; Start 04/03/20 at 16:30; Stop 04/04/20 at 16:29; Status DC Fentanyl Citrate (Fentanyl 2ml Vial) 50 mcg PRN Q5MIN PRN IV MODERATE TO SEVERE PAIN Last administered on 04/03/20at 17:34; Start 04/03/20 at 16:30; Stop 04/04/20 at 16:29; Status DC Morphine Sulfate (Morphine Sulfate) 2 mg PRN Q10MIN PRN IV MILD PAIN 1-3; Start 04/03/20 at 16:30; Stop 04/04/20 at 16:29; Status DC Morphine Sulfate (Morphine Sulfate) 4 mg PRN Q10MIN PRN IV Moderate to Severe Pain; Start 04/03/20 at 16:30; Stop 04/04/20 at 16:29; Status DC Hydromorphone HCl (Dilaudid) 0.5 mg PRN Q10MIN PRN IV Moderate to severe pain; Start 04/03/20 at 16:30; Stop 04/04/20 at 16:29; Status DC Insulin Human Lispro (HumaLOG VIAL for OP,RR ONLY) 0-10 units PRN Q1HR PRN SQ P ER PROTOCOL Last administered on 04/03/20at 17:09; Start 04/03/20 at 16:30; Stop 04/04/20 at 16:29; Status DC Fentanyl Citrate (Fentanyl 2ml Vial) 100 mcg STK-MED ONCE .ROUTE ; Start 04/03/20 at 17:23; Stop 04/03/20 at 17:24; Status DC Insulin Human Lispro (HumaLOG) 0-7 UNITS TIDWMEALS SQ Last administered on 04/08/20at 11:57; Start 04/04/20 at 13:10 Dextrose (Dextrose 50%-Water Syringe) 12.5 gm PRN Q15MIN PRN IV SEE COMMENTS; Start 04/04/20 at 13:15 Atorvastatin Calcium (Lipitor) 20 mg HS PO Last administered on 04/06/20at 21:06; Start 04/05/20 at 21:00 Lisinopril (Prinivil) 20 mg DAILY PO ; Start 04/06/20 at 09:00; Stop 04/06/20 at 08:31; Status DC Insulin Human Lispro (HumaLOG) 8 units TIDWMEALS SQ Last administered on 04/07/20 17:00; Start 04/06/20 at 08:00 Insulin Glargine (Lantus Syringe) 30 unit QHS SQ Last administered on 04/07/20at 20:52; Start 04/05/20 at 21:00 Insulin Human Lispro (HumaLOG) 9 units 1X ONCE SQ Last administered on 04/05/20 21:23; Start 04/05/20 at 21:00; Stop 04/05/20 at 21:01; Status DC Ondansetron HCl (Zofran) 4 mg PRN Q4HRS PRN IVP NAUSEA/VOMITING, 1st CHOICE Last administered on 04/08/20 12:17; Start 04/06/20 at 04:45 Sodium Chloride 1,000 ml @ 75 mls/hr [id number] IV Last administered on 04/08/20 03:27; Start 04/06/20 at 08:30 Acetaminophen (Tylenol) 650 mg PRN Q4HRS PRN PO MILD PAIN 1-3 Last administered on 04/06/20at 12:38; Start 04/06/20 at 12:30 Promethazine HCl (Phenergan) 12.5 mg PRN Q6HRS PRN PO NAUSEA/VOMITING Last administered on 04/07/20 03:26; Start 04/06/20 at 14:15; Stop 04/07/20 at 07:21; Status DC Acetaminophen/ Hydrocodone Bitart (Lortab 5/325) 1 tab PRN Q6HRS PRN PO MODERAT E TO SEVERE PAIN Last administered on 04/07/20at 10:39; Start 04/06/20 at 21:00 Prochlorperazine Edisylate (Compazine) 10 mg PRN Q6HRS PRN IV NAUSEA/VOMITING, 2nd CHOICE Last administered on 04/07/20 22:53; Start 04/07/20 at 07:30 Active Scripts Active Reported Trulicity (Dulaglutide) 0.75 Mg/0.5 Ml Pen.injctr 0.75 Mg SQ WEEKLY Novolog (Insulin Aspart) 100 Unit/1 Ml Cartridge 25 Unit SQ TIDAC Lantus Solostar (Insulin Glargine,Hum.rec.anlog) 100 Unit/1 Ml Insuln.pen 60 Unit SQ QHS Lipitor (Atorvastatin Calcium) 20 Mg Tablet 1 Tab PO HS Lisinopril 20 Mg Tablet 1 Tab PO DAILY Vitals/I & O Vital Sign - Last 24 Hours 04/07/20 04/07/20 04/07/20 04/07/20 15:10 19:40 19:43 23:01 Temp 98.6 98.4 98.6 98.4 Pulse 69 69 Resp 20 20 B/P (MAP) 165/67 (99) 149/52 (84) Pulse Ox 95 94 O2 Delivery Nasal Cannula Nasal Cannula Nasal Cannula Nasal Cannula O2 Flow Rate 2.0 2.0 2.0 04/08/20 04/08/20 04/08/20 02:51 07:00 08:00 Temp 98.3 98.3 98.3 98.3 Pulse 108 100 Resp 22 20 B/P (MAP) 140/69 (92) 150/54 (86) Pulse Ox 95 95 O2 Delivery Nasal Cannula Room Air Room Air O2 Flow Rate 2.0 Intake and Output 04/07/20 04/07/20 04/08/20 15:00 23:00 07:00 Intake Total 100 ml 100 ml Balance 100 ml 100 ml Justicifation of Admission Dx: Justifications for Admission: Justification of Admission Dx: N/A JG DOMINGUEZ MD Apr 08, 2020 14:31
[2020-04-08 15:00] VITALS: BP 152/59
--- NOTE | 2020-04-08 15:01 | NUR ---
Patient has had two large black liquid stools today. first about 6:30 on 04/08 and second at 1500.
[2020-04-08 19:00] VITALS: BP 130/67
[2020-04-08] MEDS: ATORVASTATIN CALCIUM 20 MG TABLET PO SCH (20:36)
[2020-04-08] MEDS: INSULIN GLARGINE SYRINGE. SQ SCH (20:41)
[2020-04-08 23:00] VITALS: BP 147/76
[2020-04-09 03:10] VITALS: BP 132/64
[2020-04-09] MEDS: IV NORMAL SALINE 1000ML BAG 1,000 ML IV SCH ×2 (03:18→16:30)
[2020-04-09] MEDS: ONDANSETRON PF 4 MG/2 ML VIAL. IVP PRN (03:22)
[2020-04-09 07:00] VITALS: BP 118/73
--- NOTE | 2020-04-09 08:14 | PDOC ---
SURGICAL PROGRESS NOTE Subjective Patient feeling much better has had several bowel movements Vital Signs Vital Signs Date Time Temp Pulse Resp B/P (MAP) Pulse Ox O2 Delivery O2 Flow Rate FiO2 04/09/20 07:00 98.4 108 18 118/73 (88) 97 Nasal Cannula 2.0 98.4 I&O Intake and Output 04/09/20 07:00 Intake Total 120 ml Output Total 150 ml Balance -30 ml Intake Oral 120 ml Output Urine Total 150 ml # Voids 1 # Bowel Movements 1 PATIENT HAS A JANE: No General: Alert, Oriented X3, Cooperative, mild distress Abdomen: Normal bowel sounds, Soft, Other (Mild incisional tenderness wounds clean dry and intact) Labs Laboratory Tests Test 04/07/20 11:29 04/07/20 16:29 04/07/20 20:41 04/08/20 03:19 Glucose (Fingerstick) 260 mg/dL (70-99) 211 mg/dL (70-99) 183 mg/dL (70-99) 248 mg/dL (70-99) Test 04/08/20 05:26 04/08/20 07:23 04/08/20 11:50 04/08/20 17:01 White Blood Count 4.8 x10^3/uL (4.0-11.0) Red Blood Count 3.79 x10^6/uL (3.50-5.40) Hemoglobin 11.8 g/dL (12.0-15.5) Hematocrit 34.6 % (36.0-47.0) Mean Corpuscular Volume 91 fL (79-100) Mean Corpuscular Hemoglobin 31 pg (25-35) Mean Corpuscular Hemoglobin Concent 34 g/dL (31-37) Red Cell Distribution Width 14.4 % (11.5-14.5) Platelet Count 243 x10^3/uL (140-400) Neutrophils (%) (Auto) 70 % (31-73) Lymphocytes (%) (Auto) 15 % (24-48) Monocytes (%) (Auto) 13 % (0-9) Eosinophils (%) (Auto) 1 % (0-3) Basophils (%) (Auto) 0 % (0-3) Neutrophils # (Auto) 3.4 x10^3/uL (1.8-7.7) Lymphocytes # (Auto) 0.7 x10^3/uL (1.0-4.8) Monocytes # (Auto) 0.6 x10^3/uL (0.0-1.1) Eosinophils # (Auto) 0.1 x10^3/uL (0.0-0.7) Basophils # (Auto) 0.0 x10^3/uL (0.0-0.2) Sodium Level 141 mmol/L (136-145) Potassium Level 4.1 mmol/L (3.5-5.1) Chloride Level 104 mmol/L (98-107) Carbon Dioxide Level 27 mmol/L (21-32) Anion Gap 10 (6-14) Blood Urea Nitrogen 62 mg/dL (7-20) Creatinine 1.6 mg/dL (0.6-1.0) Estimated GFR (Cockcroft-Gault) 32.0 BUN/Creatinine Ratio 39 (6-20) Glucose Level 259 mg/dL (70-99) Lactic Acid Level 1.0 mmol/L (0.4-2.0) Calcium Level 8.5 mg/dL (8.5-10.1) Total Bilirubin 0.5 mg/dL (0.2-1.0) Aspartate Amino Transf (AST/SGOT) 23 U/L (15-37) Alanine Aminotransferase (ALT/SGPT) 40 U/L (14-59) Alkaline Phosphatase 41 U/L (46-116) Total Protein 7.0 g/dL (6.4-8.2) Albumin 2.7 g/dL (3.4-5.0) Albumin/Globulin Ratio 0.6 (1.0-1.7) Glucose (Fingerstick) 233 mg/dL (70-99) 193 mg/dL (70-99) 197 mg/dL (70-99) Test 04/08/20 20:35 04/09/20 07:17 Glucose (Fingerstick) 158 mg/dL (70-99) 182 mg/dL (70-99) Laboratory Tests Test 04/08/20 11:50 04/08/20 17:01 04/08/20 20:35 04/09/20 07:17 Glucose (Fingerstick) 193 mg/dL (70-99) 197 mg/dL (70-99) 158 mg/dL (70-99) 182 mg/dL (70-99) Problem List Problems Medical Problems: (1) Small bowel obstruction Status: Acute (2) Umbilical hernia Status: Acute Assessment/Plan Status post repair of incarcerated ventral hernia will advance diet Justicifation of Admission Dx: Justifications for Admission: Justification of Admission Dx: N/A TANYA CLARKE MD Apr 09, 2020 08:13
[2020-04-09] MEDS: INSULIN LISPRO 300 UNITS/3 ML VIAL. SQ SCH ×6 (09:00→17:22)
--- NOTE | 2020-04-09 10:26 | NUR ---
SW following. Discussed with RN, pt has been titrated down to 2L o2 instead of 4L. RN will continue to try titrate lower, pt will need 6 min walk if titrate unsuccessful. PT/OT recommending home. SW will continue to follow.
[2020-04-09] MEDS: INSULIN GLARGINE SYRINGE. SQ SCH ×2 (10:47→21:09)
[2020-04-09 11:00] VITALS: BP 135/72
--- NOTE | 2020-04-09 12:41 | PDOC ---
Renal-Progress Notes Subjective Notes Notes FEELING BETTER AND HAVING BM History of Present Illness Hx of present illness STABLE Vitals Vitals Vital Signs Date Time Temp Pulse Resp B/P (MAP) Pulse Ox O2 Delivery O2 Flow Rate FiO2 04/09/20 11:00 98.2 105 19 135/72 (93) 96 Nasal Cannula 2.0 98.2 Weight Weight [ ] I.O. Intake and Output Intake and Output 04/09/20 07:00 Intake Total 120 ml Output Total 150 ml Balance -30 ml Intake Oral 120 ml Output Urine Total 150 ml # Voids 1 # Bowel Movements 1 Labs Labs Laboratory Tests Test 04/08/20 17:01 04/08/20 20:35 04/09/20 07:17 04/09/20 10:21 Glucose (Fingerstick) 197 mg/dL (70-99) 158 mg/dL (70-99) 182 mg/dL (70-99) 209 mg/dL (70-99) Micro Micro Microbiology 04/03/20 Urine Culture - Final, Complete Review of Systems Constitutional: yes: alert, oriented Ears/Nose/Throat: Yes: no symptom reported Eyes: Yes: no symptom reported Pulmonary: Yes no symptom reported Cardiovascular: Yes no symptom reported Gastrointestional: Yes: no symptom reported Genitourinary: Yes: no symptom reported Musculoskeletal: Yes: no symptom reported Skin: Yes no symptom reported Psychiatric/Neurological: Yes: no symptom reported Physical Exam General Appearance: no apparent distress Skin: warm Respiratory: bilateral CTA Heart: S1S2 Abdomen: soft, bowel sounds present Genitourinary: bladder flat Extremities: pulses present Neurology: alert, oriented Assessment Assessment IMP YRN WITH CR OF 4.8 PEAK AND NOW TO 1.6 EXTRACELLULAR VOLUME DEPLETION SBO/INCARCERATED HERNIA REPAIR DM II PLAN HOLD HOME LISINOPRIL HYDRATION WILL FOLLOW LABS IN DEMETRIA FLORES MD Apr 09, 2020 12:41
--- NOTE | 2020-04-09 14:43 | PDOC ---
PROGRESS NOTES Chief Complaint Chief Complaint Assessment/Plan Small bowel obstruction Umbilical hernia Status post laparotomy with repair of recurrent incisional hernia Essential hypertension Diabetes mellitus type 2 insulin required Morbid obesity with a BMI of 51 Acute renal failure vasomotor etiology most likely improved. Plan Diet as per planning consultant Awaiting for return of bowel function will send imaging studies symptomatic relief of symptoms. renal function improved follow urine output Encourage ambulation Incentive spirometry Resume home medication Reassess in the a.m. Further recommendations based on the clinical course DVT prophylaxis with SCD and teds History of Present Illness History of Present Illness 04/06 Patient seems to be quite sleepy today again according to nursing staff during my encounter the patient was awake and with no complaints. 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 Plan of care discussed with nursing staff 04/07/2020 Patient quite nauseous, no bowel sounds, says she has passed gas but does not feel well, renal function noted and improved. Reassurance provided, discussed with nursing staff 04/08/2020 No acute events reported overnight, case discussed with nursing staff patient in no acute distress no complaints during my visit family members at bedside 04/09/2020 Patient laying in bed in no acute distress. She has finished eating some breakfast, she seems to be improved compared to yesterday, I have encouraged more ambulation in anticipation for discharge hopefully within the next 24 to 48 hours Vitals Vitals Vital Signs Date Time Temp Pulse Resp B/P (MAP) Pulse Ox O2 Delivery O2 Flow Rate FiO2 04/09/20 11:00 98.2 105 19 135/72 (93) 96 Nasal Cannula 2.0 98.2 Physical Exam General: Alert, Oriented X3, Cooperative, mild distress Heart: Regular rate, Normal S1, Normal S2 Lungs: Clear Abdomen: Normal bowel sounds, Soft, Other Extremities: No clubbing, No cyanosis Skin: No breakdown Labs LABS Laboratory Tests Test 04/08/20 17:01 04/08/20 20:35 04/09/20 07:17 04/09/20 10:21 Glucose (Fingerstick) 197 mg/dL (70-99) 158 mg/dL (70-99) 182 mg/dL (70-99) 209 mg/dL (70-99) Review of Systems Review of Systems Pertinent as per HPI otherwise 10 point review of system is negative Assessment and Plan Assessmemt and Plan Problems Medical Problems: (1) Small bowel obstruction Status: Acute (2) Umbilical hernia Status: Acute Comment Review of Relevant I have reviewed the following items lisbeth (where applicable) has been applied. Labs Laboratory Tests Test 04/07/20 16:29 04/07/20 20:41 04/08/20 03:19 04/08/20 05:26 Glucose (Fingerstick) 211 mg/dL (70-99) 183 mg/dL (70-99) 248 mg/dL (70-99) White Blood Count 4.8 x10^3/uL (4.0-11.0) Red Blood Count 3.79 x10^6/uL (3.50-5.40) Hemoglobin 11.8 g/dL (12.0-15.5) Hematocrit 34.6 % (36.0-47.0) Mean Corpuscular Volume 91 fL (79-100) Mean Corpuscular Hemoglobin 31 pg (25-35) Mean Corpuscular Hemoglobin Concent 34 g/dL (31-37) Red Cell Distribution Width 14.4 % (11.5-14.5) Platelet Count 243 x10^3/uL (140-400) Neutrophils (%) (Auto) 70 % (31-73) Lymphocytes (%) (Auto) 15 % (24-48) Monocytes (%) (Auto) 13 % (0-9) Eosinophils (%) (Auto) 1 % (0-3) Basophils (%) (Auto) 0 % (0-3) Neutrophils # (Auto) 3.4 x10^3/uL (1.8-7.7) Lymphocytes # (Auto) 0.7 x10^3/uL (1.0-4.8) Monocytes # (Auto) 0.6 x10^3/uL (0.0-1.1) Eosinophils # (Auto) 0.1 x10^3/uL (0.0-0.7) Basophils # (Auto) 0.0 x10^3/uL (0.0-0.2) Sodium Level 141 mmol/L (136-145) Potassium Level 4.1 mmol/L (3.5-5.1) Chloride Level 104 mmol/L (98-107) Carbon Dioxide Level 27 mmol/L (21-32) Anion Gap 10 (6-14) Blood Urea Nitrogen 62 mg/dL (7-20) Creatinine 1.6 mg/dL (0.6-1.0) Estimated GFR (Cockcroft-Gault) 32.0 BUN/Creatinine Ratio 39 (6-20) Glucose Level 259 mg/dL (70-99) Lactic Acid Level 1.0 mmol/L (0.4-2.0) Calcium Level 8.5 mg/dL (8.5-10.1) Total Bilirubin 0.5 mg/dL (0.2-1.0) Aspartate Amino Transf (AST/SGOT) 23 U/L (15-37) Alanine Aminotransferase (ALT/SGPT) 40 U/L (14-59) Alkaline Phosphatase 41 U/L (46-116) Total Protein 7.0 g/dL (6.4-8.2) Albumin 2.7 g/dL (3.4-5.0) Albumin/Globulin Ratio 0.6 (1.0-1.7) Test 04/08/20 07:23 04/08/20 11:50 04/08/20 17:01 04/08/20 20:35 Glucose (Fingerstick) 233 mg/dL (70-99) 193 mg/dL (70-99) 197 mg/dL (70-99) 158 mg/dL (70-99) Test 04/09/20 07:17 04/09/20 10:21 Glucose (Fingerstick) 182 mg/dL (70-99) 209 mg/dL (70-99) Laboratory Tests Test 04/08/20 17:01 04/08/20 20:35 04/09/20 07:17 04/09/20 10:21 Glucose (Fingerstick) 197 mg/dL (70-99) 158 mg/dL (70-99) 182 mg/dL (70-99) 209 mg/dL (70-99) Microbiology 04/03/20 Urine Culture - Final, Complete Medications Current Medications Ondansetron HCl (Zofran) 8 mg 1X ONCE IVP Last administered on 04/03/20at 07:44; Start 04/03/20 at 07:30; Stop 04/03/20 at 07:31; Status DC Morphine Sulfate (Morphine Sulfate) 4 mg 1X ONCE IV Last administered on 04/03/20at 07:47; Start 04/03/20 at 07:30; Stop 04/03/20 at 07:31; Status DC Morphine Sulfate (Morphine Sulfate) 4 mg 1X ONCE IV Last administered on 04/03/20at 09:17; Start 04/03/20 at 09:15; Stop 04/03/20 at 09:16; Status DC Benzocaine (Hurricaine One) 1 spray STK-MED ONCE .ROUTE ; Start 04/03/20 at 09:11; Stop 04/03/20 at 09:11; Status DC Benzocaine (Hurricaine One) 1 spray 1X ONCE MM Last administered on 04/03/20at 09:21; Start 04/03/20 at 09:30; Stop 04/03/20 at 09:31; Status DC Ondansetron HCl (Zofran) 4 mg PRN Q8HRS PRN IV NAUSEA/VOMITING Last administered on 04/04/20at 03:19; Start 04/03/20 at 09:30; Stop 04/04/20 at 09:29; Status DC Morphine Sulfate (Morphine Sulfate) 4 mg PRN Q2HR PRN IV PAIN Last administered on 04/04/20at 07:28; Start 04/03/20 at 09:30; Stop 04/04/20 at 09:29; Status DC Sodium Chloride 1,000 ml @ 75 mls/hr [id number] IV Last administered on 04/04/20at 03:23; Start 04/03/20 at 09:17; Stop 04/04/20 at 09:16; Status DC Ringer's Solution 1,000 ml @ 30 mls/hr Q24H IV Last administered on 04/03/20at 13:00; Start 04/03/20 at 10:45; Stop 04/03/20 at 22:44; Status DC Lidocaine HCl (Xylocaine-Mpf 1% 2ml Vial) 2 ml PRN 1X PRN ID PRIOR TO IV START; Start 04/03/20 at 10:45; Stop 04/04/20 at 10:44; Status DC Prochlorperazine Edisylate (Compazine) 5 mg PACU PRN PRN IV NAUSEA, MRX1; Start 04/03/20 at 10:45; Stop 04/04/20 at 10:44; Status DC Hydromorphone HCl (Dilaudid) 1 mg 1X ONCE IV ; Start 04/03/20 at 11:00; Stop 04/03/20 at 11:01; Status DC Propofol (Diprivan) 200 mg STK-MED ONCE IV ; Start 04/03/20 at 12:52; Stop 04/03/20 at 12:52; Status DC Lidocaine HCl (Xylocaine-Mpf 1% 5ml Vial) 5 ml STK-MED ONCE .ROUTE ; Start 04/03/20 at 12:52; Stop 04/03/20 at 12:52; Status DC Ondansetron HCl (Zofran) 4 mg STK-MED ONCE .ROUTE ; Start 04/03/20 at 12:52; Stop 04/03/20 at 12:52; Status DC Dexamethasone Sodium Phosphate (Decadron) 4 mg STK-MED ONCE .ROUTE ; Start 04/03/20 at 12:52; Stop 04/03/20 at 12:52; Status DC Fentanyl Citrate (Fentanyl 2ml Vial) 100 mcg STK-MED ONCE .ROUTE ; Start 04/03/20 at 12:52; Stop 04/03/20 at 12:53; Status DC Rocuronium [place] (Zemuron) 100 mg STK-MED ONCE .ROUTE ; Start 04/03/20 at 12:54; Stop 04/03/20 at 12:54; Status DC Mineral Oil (Muri-Lube) 10 ml STK-MED ONCE MC ; Start 04/03/20 at 13:08; Stop 04/03/20 at 13:08; Status DC Bupivacaine HCl/ Epinephrine Bitart (Sensorcaine-Epi 0.25%-1:438750 Mpf) 30 ml STK-MED ONCE .ROUTE Last administered on 04/03/20at 14:28; Start 04/03/20 at 13:08; Stop 04/03/20 at 13:08; Status DC Cefazolin Sodium 3 gm/Dextrose 100 ml @ 200 mls/hr 1X PREOP ONCE IV Last administered on 04/03/20at 14:22; Start 04/03/20 at 14:00; Stop 04/03/20 at 14:29; Status DC Glycopyrrolate (Robinul) 1 mg STK-MED ONCE .ROUTE ; Start 04/03/20 at 14:31; Stop 04/03/20 at 14:31; Status DC Sevoflurane (Ultane) 90 ml STK-MED ONCE IH ; Start 04/03/20 at 14:38; Stop 04/03 at 14:38; Status DC Rocuronium [place] (Zemuron) 50 mg STK-MED ONCE .ROUTE ; Start 04/03/20 at 14:53; Stop 04/03/20 at 14:53; Status DC Fentanyl Citrate (Fentanyl 2ml Vial) 100 mcg STK-MED ONCE .ROUTE ; Start 04/03/20 at 15:53; Stop 04/03/20 at 15:53; Status DC Fentanyl Citrate (Fentanyl 2ml Vial) 25 mcg PRN Q5MIN PRN IV MILD PAIN 1-3; Start 04/03/20 at 16:30; Stop 04/04/20 at 16:29; Status DC Fentanyl Citrate (Fentanyl 2ml Vial) 50 mcg PRN Q5MIN PRN IV MODERATE TO SEVERE PAIN Last administered on 04/03/20at 17:34; Start 04/03/20 at 16:30; Stop 04/04/20 at 16:29; Status DC Morphine Sulfate (Morphine Sulfate) 2 mg PRN Q10MIN PRN IV MILD PAIN 1-3; Start 04/03/20 at 16:30; Stop 04/04/20 at 16:29; Status DC Morphine Sulfate (Morphine Sulfate) 4 mg PRN Q10MIN PRN IV Moderate to Severe Pain; Start 04/03/20 at 16:30; Stop 04/04/20 at 16:29; Status DC Hydromorphone HCl (Dilaudid) 0.5 mg PRN Q10MIN PRN IV Moderate to severe pain; Start 04/03/20 at 16:30; Stop 04/04/20 at 16:29; Status DC Insulin Human Lispro (HumaLOG VIAL for OP,RR ONLY) 0-10 units PRN Q1HR PRN SQ PER PROTOCOL Last administered on 04/03/20at 17:09; Start 04/03/20 at 16:30; Stop 04/04/20 at 16:29; Status DC Fentanyl Citrate (Fentanyl 2ml Vial) 100 mcg STK-MED ONCE .ROUTE ; Start 0 at 17:23; Stop 04/03/20 at 17:24; Status DC Insulin Human Lispro (HumaLOG) 0-7 UNITS TIDWMEALS SQ Last administered on 04/09/20at 09:00; Start 04/04/20 at 13:10 Dextrose (Dextrose 50%-Water Syringe) 12.5 gm PRN Q15MIN PRN IV SEE COMMENTS; Start 04/04/20 at 13:15 Atorvastatin Calcium (Lipitor) 20 mg HS PO Last administered on 04/08/20at 20:36; Start 04/05/20 at 21:00 Lisinopril (Prinivil) 20 mg DAILY PO ; Start 04/06/20 at 09:00; Stop 04/06/20 at 08:31; Status DC Insulin Human Lispro (HumaLOG) 8 units TIDWMEALS SQ Last administered on 04/09/20at 09:05; Start 04/06/20 at 08:00 Insulin Glargine (Lantus Syringe) 30 unit QHS SQ Last administered on 04/08/20at 20:41; Start 04/05/20 at 21:00; Stop 04/09/20 at 07:58; Status DC Insulin Human Lispro (HumaLOG) 9 units 1X ONCE SQ Last administered on 04/05/20at 21:23; Start 04/05/20 at 21:00; Stop 04/05/20 at 21:01; Status DC Ondansetron HCl (Zofran) 4 mg PRN Q4HRS PRN IVP NAUSEA/VOMITING, 1st CHOICE Last administered on 04/09/20at 03:22; Start 04/06/20 at 04:45 Sodium Chloride 1,000 ml @ 75 mls/hr [id number] IV Last administered on 04/09/20at 03:18; Start 04/06/20 at 08:30 Acetaminophen (Tylenol) 650 mg PRN Q4HRS PRN PO MILD PAIN 1-3 Last administered on 04/06/20at 12:38; Start 04/06/20 at 12:30 Promethazine HCl (Phenergan) 12.5 mg PRN Q6HRS PRN PO NAUSEA/VOMITING Last administered on 04/07/20at 03:26; Start 04/06/20 at 14:15; Stop 04/07/20 at 07:21; Status DC Acetaminophen/ Hydrocodone Bitart (Lortab 5/325) 1 tab PRN Q6HRS PRN PO MODERATE TO SEVERE PAIN Last administered on 04/07/20at 10:39; Start 04/06/20 at 21:00 Prochlorperazine Edisylate (Compazine) 10 mg PRN Q6HRS PRN IV NAUSEA/VOMITING, 2nd CHOICE Last administered on 04/07/20at 22:53; Start 04/07/20 at 07:30 Insulin Glargine (Lantus Syringe) 18 unit BID SQ Last administered on 04/09/20at 10:47; Start 04/09/20 at 09:00 Active Scripts Active Reported Trulicity (Dulaglutide) 0.75 Mg/0.5 Ml Pen.injctr 0.75 Mg SQ WEEKLY Novolog (Insulin Aspart) 100 Unit/1 Ml Cartridge 25 Unit SQ TIDAC Lantus Solostar (Insulin Glargine,Hum.rec.anlog) 100 Unit/1 Ml Insuln.pen 60 Unit SQ QHS Lipitor (Atorvastatin Calcium) 20 Mg Tablet 1 Tab PO HS Lisinopril 20 Mg Tablet 1 Tab PO DAILY Vitals/I & O Vital Sign - Last 24 Hours 04/08/20 04/08/20 04/08/20 04/08/20 15:00 19:00 19:45 23:00 Temp 98.3 97.9 98.3 98.3 97.9 98.3 Pulse 100 110 105 Resp 20 22 20 B/P (MAP) 152/59 (90) 130/67 (88) 147/76 (99) Pulse Ox 94 92 93 O2 Delivery Nasal Cannula BiPAP/CPAP Nasal Cannula BiPAP/CPAP O2 Flow Rate 2.0 2.0 04/08/20 04/09/20 04/09/20 04/09/20 23:55 03:10 07:00 08:00 Temp 98.5 98.4 98.5 98.4 Pulse 107 108 Resp 20 18 B/P (MAP) 132/64 (86) 118/73 (88) Pulse Ox 96 97 O2 Delivery BiPAP/CPAP Nasal Cannula Nasal Cannula Nasal Cannula O2 Flow Rate 2.0 2.0 2.0 04/09/20 11:00 Temp 98.2 98.2 Pulse 105 Resp 19 B/P (MAP) 135/72 (93) Pulse Ox 96 O2 Delivery Nasal Cannula O2 Flow Rate 2.0 Intake and Output 7/26/20 7/26/20 7/27/20 15:00 23:00 07:00 Intake Total 60 ml 60 ml Output Total 150 ml Balance -150 ml 60 ml 60 ml Justicifation of Admission Dx: Justifications for Admission: Justification of Admission Dx: N/A JG DOMINGUEZ MD Apr 09, 2020 14:43
[2020-04-09 15:00] VITALS: BP 146/61
[2020-04-09] MEDS: PROCHLORPERAZINE 10 MG/2 ML VIAL. IV PRN (18:36)
[2020-04-09 19:00] VITALS: BP 141/59
[2020-04-09] MEDS: ATORVASTATIN CALCIUM 20 MG TABLET PO SCH (21:05)
[2020-04-09 23:00] VITALS: BP 173/67
[2020-04-10 03:00] VITALS: BP 157/74
[2020-04-10 03:34] LABS: CALCIUM 8.3 mg/dL (8.5-10.1); CREATININE 1.2 mg/dL (0.6-1.0); GFR 44.5; POTASSIUM 3.5 mmol/L (3.5-5.1)
[2020-04-10] MEDS: IV NORMAL SALINE 1000ML BAG 1,000 ML IV SCH (05:50)
[2020-04-10 07:00] VITALS: BP 151/76
[2020-04-10] MEDS: INSULIN LISPRO 300 UNITS/3 ML VIAL. SQ SCH ×4 (08:41→12:14)
[2020-04-10] MEDS: INSULIN GLARGINE SYRINGE. SQ SCH (08:42)
--- NOTE | 2020-04-10 09:41 | NUR ---
[facility] following. Discussed with RN, pt still on 2L o2. 6 minute walk ordered, for possible discharge. [facility] will continue to follow. Addendum: 04/10/20 at 1231 by PILLO WILKINS Pt does not need oxygen at home. Possible discharge, if okay with surgery. [facility] will continue to follow.
[2020-04-10 11:00] VITALS: BP 133/53
--- NOTE | 2020-04-10 11:14 | PDOC ---
PROGRESS NOTES Chief Complaint Chief Complaint Assessment/Plan Small bowel obstruction Umbilical hernia Status post laparotomy with repair of recurrent incisional hernia Essential hypertension Diabetes mellitus type 2 insulin required Morbid obesity with a BMI of 51 Acute renal failure vasomotor etiology most likely improved. Plan Diet as per parts consultant Awaiting for return of bowel function will send imaging studies symptomatic relief of symptoms. renal function improved follow urine output Encourage ambulation Incentive spirometry Resume home medication Reassess in the a.m. Further recommendations based on the clinical course DVT prophylaxis with SCD and teds History of Present Illness History of Present Illness 04/06 Patient seems to be quite sleepy today again according to nursing staff during my encounter the patient was awake and with no complaints. Patient is ambulating and passing gases surgical attendant recommendations were noted and greatly appreciated. Plan of care discussed with nursing staff 04/07/2020 Patient quite nauseous, no bowel sounds, says she has passed gas but does not feel well, renal function noted and improved. Reassurance provided, discussed with nursing staff 04/08/2020 No acute events reported overnight, case discussed with nursing staff patient in no acute distress no complaints during my visit family members at bedside 04/09/2020 Patient laying in bed in no acute distress. She has finished eating some breakfast, she seems to be improved compared to yesterday, I have encouraged more ambulation in anticipation for discharge hopefully within the next 24 to 48 hours 04/10/2020 Patient sitting in chair in no acute distress. Diet has been advanced and she has tolerated well, from the nephrology standpoint of view she is ready for discharge from our point of view as well. Just awaiting for final recommendations from surgery Vitals Vitals Vital Signs Date Time Temp Pulse Resp B/P (MAP) Pulse Ox O2 Delivery O2 Flow Rate FiO2 04/10/20 07:00 98.4 80 18 151/76 (101) 90 Room Air 98.4 04/10/20 03:00 2.0 Physical Exam General: Alert, Oriented X3, Cooperative, mild distress Heart: Regular rate, Normal S1, Normal S2 Lungs: Clear Abdomen: Normal bowel sounds, Soft, Other Extremities: No clubbing, No cyanosis Skin: No breakdown Labs LABS Laboratory Tests Test 04/09/20 16:33 04/09/20 20:27 04/10/20 02:30 04/10/20 07:35 Glucose (Fingerstick) 243 mg/dL (70-99) 166 mg/dL (70-99) 190 mg/dL (70-99) Sodium Level 143 mmol/L (136-145) Potassium Level 3.5 mmol/L (3.5-5.1) Chloride Level 106 mmol/L (98-107) Carbon Dioxide Level 28 mmol/L (21-32) Anion Gap 9 (6-14) Blood Urea Nitrogen 24 mg/dL (7-20) Creatinine 1.2 mg/dL (0.6-1.0) Estimated GFR (Cockcroft-Gault) 44.5 Glucose Level 188 mg/dL (70-99) Calcium Level 8.3 mg/dL (8.5-10.1) Assessment and Plan Assessmemt and Plan Problems Medical Problems: (1) Small bowel obstruction Status: Acute (2) Umbilical hernia Status: Acute Comment Review of Relevant I have reviewed the following items lisbeth (where applicable) has been applied. Labs Laboratory Tests Test 04/08/20 11:50 04/08/20 17:01 04/08/20 20:35 04/09/20 07:17 Glucose (Fingerstick) 193 mg/dL (70-99) 197 mg/dL (70-99) 158 mg/dL (70-99) 182 mg/dL (70-99) Test 04/09/20 10:21 04/09/20 16:33 04/09/20 20:27 04/10/20 02:30 Glucose (Fingerstick) 209 mg/dL (70-99) 243 mg/dL (70-99) 166 mg/dL (70-99) Sodium Level 143 mmol/L (136-145) Potassium Level 3.5 mmol/L (3.5-5.1) Chloride Level 106 mmol/L (98-107) Carbon Dioxide Level 28 mmol/L (21-32) Anion Gap 9 (6-14) Blood Urea Nitrogen 24 mg/dL (7-20) Creatinine 1.2 mg/dL (0.6-1.0) Estimated GFR (Cockcroft-Gault) 44.5 Glucose Level 188 mg/dL (70-99) Calcium Level 8.3 mg/dL (8.5-10.1) Test 04/10/20 07:35 Glucose (Fingerstick) 190 mg/dL (70-99) Laboratory Tests Test 04/09/20 16:33 04/09/20 20:27 04/10/20 02:30 04/10/20 07:35 Glucose (Fingerstick) 243 mg/dL (70-99) 166 mg/dL (70-99) 190 mg/dL (70-99) Sodium Level 143 mmol/L (136-145) Potassium Level 3.5 mmol/L (3.5-5.1) Chloride Level 106 mmol/L (98-107) Carbon Dioxide Level 28 mmol/L (21-32) Anion Gap 9 (6-14) Blood Urea Nitrogen 24 mg/dL (7-20) Creatinine 1.2 mg/dL (0.6-1.0) Estimated GFR (Cockcroft-Gault) 44.5 Glucose Level 188 mg/dL (70-99) Calcium Level 8.3 mg/dL (8.5-10.1) Microbiology 04/03/20 Urine Culture - Final, Complete Medications Current Medications Ondansetron HCl (Zofran) 8 mg 1X ONCE IVP Last administered on 04/03/20at 07:44; Start 04/03/20 at 07:30; Stop 04/03/20 at 07:31; Status DC Morphine Sulfate (Morphine Sulfate) 4 mg 1X ONCE IV Last administered on 04/03/20at 07:47; Start 04/03/20 at 07:30; Stop 04/03/20 at 07:31; Status DC Morphine Sulfate (Morphine Sulfate) 4 mg 1X ONCE IV Last administered on 04/03/20at 09:17; Start 04/03/20 at 09:15; Stop 04/03/20 at 09:16; Status DC Benzocaine (Hurricaine One) 1 spray STK-MED ONCE .ROUTE ; Start 04/03/20 at 09:11; Stop 04/03/20 at 09:11; Status DC Benzocaine (Hurricaine One) 1 spray 1X ONCE MM Last administered on 04/03/20at 09:21; Start 04/03/20 at 09:30; Stop 04/03/20 at 09:31; Status DC Ondansetron HCl (Zofran) 4 mg PRN Q8HRS PRN IV NAUSEA/VOMITING Last administered on 04/04/20at 03:19; Start 04/03/20 at 09:30; Stop 04/04/20 at 09:29; Status DC Morphine Sulfate (Morphine Sulfate) 4 mg PRN Q2HR PRN IV PAIN Last administered on 04/04/20at 07:28; Start 04/03/20 at 09:30; Stop 04/04/20 at 09:29; Status DC Sodium Chloride 1,000 ml @ 75 mls/hr [id number] IV Last administered on 04/04/20at 03:23; Start 04/03/20 at 09:17; Stop 04/04/20 at 09:16; Status DC Ringer's Solution 1,000 ml @ 30 mls/hr Q24H IV Last administered on 04/03/20at 13:00; Start 04/03/20 at 10:45; Stop 04/03/20 at 22:44; Status DC Lidocaine HCl (Xylocaine-Mpf 1% 2ml Vial) 2 ml PRN 1X PRN ID PRIOR TO IV START; Start 04/03/20 at 10:45; Stop 04/04/20 at 10:44; Status DC Prochlorperazine Edisylate (Compazine) 5 mg PACU PRN PRN IV NAUSEA, MRX1; Start 04/03/20 at 10:45; Stop 04/04/20 at 10:44; Status DC Hydromorphone HCl (Dilaudid) 1 mg 1X ONCE IV ; Start 04/03/20 at 11:00; Stop 04/03/20 at 11:01; Status DC Propofol (Diprivan) 200 mg STK-MED ONCE IV ; Start 04/03/20 at 12:52; Stop 04/03/20 at 12:52; Status DC Lidocaine HCl (Xylocaine-Mpf 1% 5ml Vial) 5 ml STK-MED ONCE .ROUTE ; Start 04/03/20 at 12:52; Stop 04/03/20 at 12:52; Status DC Ondansetron HCl (Zofran) 4 mg STK-MED ONCE .ROUTE ; Start 04/03/20 at 12:52; Stop 04/03/20 at 12:52; Status DC Dexamethasone Sodium Phosphate (Decadron) 4 mg STK-MED ONCE .ROUTE ; Start 04/03/20 at 12:52; Stop 04/03/20 at 12:52; Status DC Fentanyl Citrate (Fentanyl 2ml Vial) 100 mcg STK-MED ONCE .ROUTE ; Start 04/03/20 at 12:52; Stop 04/03/20 at 12:53; Status DC Rocuronium Amberg (Zemuron) 100 mg STK-MED ONCE .ROUTE ; Start 04/03/20 at 12:54; Stop 04/03/20 at 12:54; Status DC Mineral Oil (Muri-Lube) 10 ml STK-MED ONCE MC ; Start 04/03/20 at 13:08; Stop 04/03/20 at 13:08; Status DC Bupivacaine HCl/ Epinephrine Bitart (Sensorcaine-Epi 0.25%-1:[id number] Mpf) 30 ml STK-MED ONCE .ROUTE Last administered on 04/03/20at 14:28; Start 04/03/20 at 13:08; Stop 04/03/20 at 13:08; Status DC Cefazolin Sodium 3 gm/Dextrose 100 ml @ 200 mls/hr 1X PREOP ONCE IV Last administered on 04/03/20at 14:22; Start 04/03/20 at 14:00; Stop 04/03/20 at 14:29; Status DC Glycopyrrolate (Robinul) 1 mg STK-MED ONCE .ROUTE ; Start 04/03/20 at 14:31; Stop 04/03/20 at 14:31; Status DC Sevoflurane (Ultane) 90 ml STK-MED ONCE IH ; Start 04/03/20 at 14:38; Stop 04/03/20 at 14:38; Status DC Rocuronium Amberg (Zemuron) 50 mg STK-MED ONCE .ROUTE ; Start 04/03/20 at 14:53; Stop 04/03/20 at 14:53; Status DC Fentanyl Citrate (Fentanyl 2ml Vial) 100 mcg STK-MED ONCE .ROUTE ; Start 04/03/20 at 15:53; Stop 04/03/20 at 15:53; Status DC Fentanyl Citrate (Fentanyl 2ml Vial) 25 mcg PRN Q5MIN PRN IV MILD PAIN 1-3; Start 04/03/20 at 16:30; Stop 04/04/20 at 16:29; Status DC Fentanyl Citrate (Fentanyl 2ml Vial) 50 mcg PRN Q5MIN PRN IV MODERATE TO SEVERE PAIN Last administered on 04/03/20at 17:34; Start 04/03/20 at 16:30; Stop 04/04/20 at 16:29; Status DC Morphine Sulfate (Morphine Sulfate) 2 mg PRN Q10MIN PRN IV MILD PAIN 1-3; Start 04/03/20 at 16:30; Stop 04/04/20 at 16:29; Status DC Morphine Sulfate (Morphine Sulfate) 4 mg PRN Q10MIN PRN IV Moderate to Severe Pain; Start 04/03/20 at 16:30; Stop 04/04/20 at 16:29; Status DC Hydromorphone HCl (Dilaudid) 0.5 mg PRN Q10MIN PRN IV Moderate to severe pain; Start 04/03/20 at 16:30; Stop 04/04/20 at 16:29; Status DC Insulin Human Lispro (HumaLOG VIAL for OP,RR ONLY) 0-10 units PRN Q1HR PRN SQ PER PROTOCOL Last administered on 04/03/20at 17:09; Start 04/03/20 at 16:30; Stop 04/04/20 at 16:29; Status DC Fentanyl Citrate (Fentanyl 2ml Vial) 100 mcg STK-MED ONCE .ROUTE ; Start 04/03/20 at 17:23; Stop 04/03/20 at 17:24; Status DC Insulin Human Lispro (HumaLOG) 0-7 UNITS TIDWMEALS SQ Last administered on 04/10/20at 08:41; Start 04/04/20 at 13:10 Dextrose (Dextrose 50%-Water Syringe) 12.5 gm PRN Q15MIN PRN IV SEE COMMENTS; Start 04/04/20 at 13:15 Atorvastatin Calcium (Lipitor) 20 mg HS PO Last administered on 04/09/20at 21:05; Start 04/05/20 at 21:00 Lisinopril (Prinivil) 20 mg DAILY PO ; Start 04/06/20 at 09:00; Stop 04/06/20 at 08:31; Status DC Insulin Human Lispro (HumaLOG) 8 units TIDWMEALS SQ Last administered on 04/10/20at 08:42; Start 04/06/20 at 08:00 Insulin Glargine (Lantus Syringe) 30 unit QHS SQ Last administered on 04/08/20at 20:41; Start 04/05/20 at 21:00; Stop 04/09/20 at 07:58; Status DC Insulin Human Lispro (HumaLOG) 9 units 1X ONCE SQ Last administered on 04/05/20at 21:23; Start 04/05/20 at 21:00; Stop 04/05/20 at 21:01; Status DC Ondansetron HCl (Zofran) 4 mg PRN Q4HRS PRN IVP NAUSEA/VOMITING, 1st CHOICE Last administered on 04/09/20at 03:22; Start 04/06/20 at 04:45 Sodium Chloride 1,000 ml @ 75 mls/hr [id number] IV Last administered on 04/09/20at 03:18; Start 04/06/20 at 08:30 Acetaminophen (Tylenol) 650 mg PRN Q4HRS PRN PO MILD PAIN 1-3 Last administered on 04/06/20at 12:38; Start 04/06/20 at 12:30 Promethazine HCl (Phenergan) 12.5 mg PRN Q6HRS PRN PO NAUSEA/VOMITING Last administered on 04/07/20at 03:26; Start 04/06/20 at 14:15; Stop 04/07/20 at 07:21; Status DC Acetaminophen/ Hydrocodone Bitart (Lortab 5/325) 1 tab PRN Q6HRS PRN PO MODERATE TO SEVERE PAIN Last administered on 04/07/20at 10:39; Start 04/06/20 at 21:00 Prochlorperazine Edisylate (Compazine) 10 mg PRN Q6HRS PRN IV NAUSEA/VOMITING, 2nd CHOICE Last administered on 04/09/20at 18:36; Start 04/07/20 at 07:30 Insulin Glargine (Lantus Syringe) 18 unit BID SQ Last administered on 04/10/20at 08:42; Start 04/09/20 at 09:00 Active Scripts Active Reported Trulicity (Dulaglutide) 0.75 Mg/0.5 Ml Pen.injctr 0.75 Mg SQ WEEKLY Novolog (Insulin Aspart) 100 Unit/1 Ml Cartridge 25 Unit SQ TIDAC Lantus Solostar (Insulin Glargine,Hum.rec.anlog) 100 Unit/1 Ml Insuln.pen 60 Unit SQ QHS Lipitor (Atorvastatin Calcium) 20 Mg Tablet 1 Tab PO HS Lisinopril 20 Mg Tablet 1 Tab PO DAILY Vitals/I & O Vital Sign - Last 24 Hours 04/09/20 04/09/20 04/09/20 04/09/20 15:00 19:00 20:05 23:00 Temp 98.8 97.4 98.5 98.8 97.4 98.5 Pulse 106 109 108 Resp 18 18 18 B/P (MAP) 146/61 (89) 141/59 (86) 173/67 (102) Pulse Ox 94 96 95 O2 Delivery Nasal Cannula Nasal Cannula Room Air Room Air O2 Flow Rate 2.0 04/10/20 04/10/20 03:00 07:00 Temp 99.0 98.4 99.0 98.4 Pulse 102 80 Resp 18 18 B/P (MAP) 157/74 (101) 151/76 (101) Pulse Ox 96 90 O2 Delivery Nasal Cannula Room Air O2 Flow Rate 2.0 Intake and Output 04/09/20 04/09/20 04/10/20 15:00 23:00 07:00 Intake Total 200 ml 100 ml 240 ml Balance 200 ml 100 ml 240 ml Justicifation of Admission Dx: Justifications for Admission: Justification of Admission Dx: N/A JG DOMINGUEZ MD Apr 10, 2020 11:14
--- NOTE | 2020-04-10 11:46 | PDOC ---
Renal-Progress Notes Subjective Notes Notes NO NEW COMPLAINTS History of Present Illness Hx of present illness STABLE Vitals Vitals Vital Signs Date Time Temp Pulse Resp B/P (MAP) Pulse Ox O2 Delivery O2 Flow Rate FiO2 04/10/20 08:00 Room Air 2.0 04/10/20 07:00 98.4 80 18 151/76 (101) 90 98.4 Weight Weight [ ] I.O. Intake and Output Intake and Output 04/10/20 07:00 Intake Total 540 ml Balance 540 ml Intake Oral 540 ml # Voids 5 Labs Labs Laboratory Tests Test 04/09/20 16:33 04/09/20 20:27 04/10/20 02:30 04/10/20 07:35 Glucose (Fingerstick) 243 mg/dL (70-99) 166 mg/dL (70-99) 190 mg/dL (70-99) Sodium Level 143 mmol/L (136-145) Potassium Level 3.5 mmol/L (3.5-5.1) Chloride Level 106 mmol/L (98-107) Carbon Dioxide Level 28 mmol/L (21-32) Anion Gap 9 (6-14) Blood Urea Nitrogen 24 mg/dL (-20) Creatinine 1.2 mg/dL (0.6-1.0) Estimated GFR (Cockcroft-Gault) 44.5 Glucose Level 188 mg/dL (70-99) Calcium Level 8.3 mg/dL (8.5-10.1) Test 04/10/20 11:41 Glucose (Fingerstick) 201 mg/dL (70-99) Micro Micro Microbiology 04/03/20 Urine Culture - Final, Complete Review of Systems Constitutional: yes: alert, oriented Ears/Nose/Throat: Yes: no symptom reported Eyes: Yes: no symptom reported Pulmonary: Yes no symptom reported Cardiovascular: Yes no symptom reported Gastrointestional: Yes: no symptom reported Genitourinary: Yes: no symptom reported Musculoskeletal: Yes: no symptom reported Skin: Yes no symptom reported Psychiatric/Neurological: Yes: no symptom reported Physical Exam General Appearance: no apparent distress Skin: warm Respiratory: bilateral CTA Heart: S1S2 Abdomen: soft, bowel sounds present Genitourinary: bladder flat Extremities: pulses present Neurology: alert, oriented Assessment Assessment IMP YRN WITH CR OF 4.8 PEAK AND NOW ESSENTIALLY RESOLVED 1.2 EXTRACELLULAR VOLUME DEPLETION SBO/INCARCERATED HERNIA REPAIR DM II HTN PLAN WILL SIGN OFF PLEASE CALL IF NEEDED DEMETRIA HSU MD Apr 10, 2020 11:46
--- NOTE | 2020-04-10 13:07 | PDOC ---
SURGICAL PROGRESS NOTE Subjective Patient doing quite well tolerating regular diet having normal bowel movements Vital Signs Vital Signs Date Time Temp Pulse Resp B/P (MAP) Pulse Ox O2 Delivery O2 Flow Rate FiO2 04/10/20 11:00 98.3 118 18 133/53 (79) 92 Room Air 98.3 04/10/20 08:00 2.0 I&O Intake and Output 04/10/20 07:00 Intake Total 540 ml Balance 540 ml Intake Oral 540 ml # Voids 5 PATIENT HAS A JANE: No General: Alert, Oriented X3, Cooperative, No acute distress Abdomen: Normal bowel sounds, Soft, Other (Mild incisional tenderness wounds clean dry and intact) Labs Laboratory Tests Test 04/08/20 17:01 04/08/20 20:35 04/09/20 07:17 04/09/20 10:21 Glucose (Fingerstick) 197 mg/dL (70-99) 158 mg/dL (70-99) 182 mg/dL (70-99) 209 mg/dL (70-99) Test 04/09/20 16:33 04/09/20 20:27 04/10/20 02:30 04/10/20 07:35 Glucose (Fingerstick) 243 mg/dL (70-99) 166 mg/dL (70-99) 190 mg/dL (70-99) Sodium Level 143 mmol/L (136-145) Potassium Level 3.5 mmol/L (3.5-5.1) Chloride Level 106 mmol/L (98-107) Carbon Dioxide Level 28 mmol/L (21-32) Anion Gap 9 (6-14) Blood Urea Nitrogen 24 mg/dL (-20) Creatinine 1.2 mg/dL (0.6-1.0) Estimated GFR (Cockcroft-Gault) 44.5 Glucose Level 188 mg/dL (70-99) Calcium Level 8.3 mg/dL (8.5-10.1) Test 04/10/20 11:41 Glucose (Fingerstick) 201 mg/dL (70-99) Laboratory Tests Test 04/09/20 16:33 04/09/20 20:27 04/10/20 02:30 04/10/20 07:35 Glucose (Fingerstick) 243 mg/dL (70-99) 166 mg/dL (70-99) 190 mg/dL (70-99) Sodium Level 143 mmol/L (136-145) Potassium Level 3.5 mmol/L (3.5-5.1) Chloride Level 106 mmol/L (98-107) Carbon Dioxide Level 28 mmol/L (21-32) Anion Gap 9 (6-14) Blood Urea Nitrogen 24 mg/dL (7-20) Creatinine 1.2 mg/dL (0.6-1.0) Estimated GFR (Cockcroft-Gault) 44.5 Glucose Level 188 mg/dL (70-99) Calcium Level 8.3 mg/dL (8.5-10.1) Test 04/10/20 11:41 Glucose (Fingerstick) 201 mg/dL (70-99) Problem List Problems Medical Problems: (1) Small bowel obstruction Status: Acute (2) Umbilical hernia Status: Acute Assessment/Plan Patient doing well Stable from surgical standpoint okay to discharge home follow-up in [address] Clarke Justicifation of Admission Dx: Justifications for Admission: Justification of Admission Dx: N/A TANYA CLARKE MD Apr 10, 2020 13:07
[2020-04-10] MEDS ORDERED: HYDR-2761 PO (13:32)
--- NOTE | 2020-04-10 13:38 | PDOC3 ---
Discharge Summary Visit Information Date of Admission: Apr 04, 2020 Date of Discharge: Apr 10, 2020 Admitting Diagnosis Comment: Small bowel obstruction Umbilical hernia Status post laparotomy with repair of recurrent incisional hernia Essential hypertension Diabetes mellitus type 2 insulin required Morbid obesity with a BMI of 51 Final Diagnosis Problems Medical Problems: (1) Small bowel obstruction Status: Acute (2) Umbilical hernia Status: Acute Small bowel obstruction Umbilical hernia Status post laparotomy with repair of recurrent incisional hernia Essential hypertension Diabetes mellitus type 2 insulin required Morbid obesity with a BMI of 51 Acute renal failure vasomotor nephropathy most likely Brief Hospital Course Allergies Allergies Coded Allergies Type Severity Reaction Last Updated Verified No Known Drug Allergies 04/03/20 No Vital Signs Vital Signs Date Time Temp Pulse Resp B/P (MAP) Pulse Ox O2 Delivery O2 Flow Rate FiO2 04/10/20 11:00 98.3 118 18 133/53 (79) 92 Room Air 98.3 04/10/20 08:00 2.0 Lab Results Laboratory Tests Test 04/08/20 17:01 04/08/20 20:35 04/09/20 07:17 04/09/20 10:21 Glucose (Fingerstick) 197 mg/dL (70-99) 158 mg/dL (70-99) 182 mg/dL (70-99) 209 mg/dL (70-99) Test 04/09/20 16:33 04/09/20 20:27 04/10/20 02:30 04/10/20 07:35 Glucose (Fingerstick) 243 mg/dL (70-99) 166 mg/dL (70-99) 190 mg/dL (70-99) Sodium Level 143 mmol/L (136-145) Potassium Level 3.5 mmol/L (3.5-5.1) Chloride Level 106 mmol/L (98-107) Carbon Dioxide Level 28 mmol/L (21-32) Anion Gap 9 (6-14) Blood Urea Nitrogen 24 mg/dL (7-20) Creatinine 1.2 mg/dL (0.6-1.0) Estimated GFR (Cockcroft-Gault) 44.5 Glucose Level 188 mg/dL (70-99) Calcium Level 8.3 mg/dL (8.5-10.1) Test 04/10/20 11:41 Glucose (Fingerstick) 201 mg/dL (70-99) Laboratory Tests Test 04/09/20 16:33 04/09/20 20:27 04/10/20 02:30 04/10/20 07:35 Glucose (Fingerstick) 243 mg/dL (70-99) 166 mg/dL (70-99) 190 mg/dL (70-99) Sodium Level 143 mmol/L (136-145) Potassium Level 3.5 mmol/L (3.5-5.1) Chloride Level 106 mmol/L (98-107) Carbon Dioxide Level 28 mmol/L (21-32) Anion Gap 9 (6-14) Blood Urea Nitrogen 24 mg/dL (7-20) Creatinine 1.2 mg/dL (0.6-1.0) Estimated GFR (Cockcroft-Gault) 44.5 Glucose Level 188 mg/dL (70-99) Calcium Level 8.3 mg/dL (8.5-10.1) Test 04/10/20 11:41 Glucose (Fingerstick) 201 mg/dL (70-99) Brief Hospital Course History of Present Illness History of Present Illness Patient is is 69-year-old female with past medical history of diabetes and essential hypertension who was in her usual state of health until Thursday when she started experiencing abdominal discomfort associated with nausea and emesis. The pain is crampy in nature 10 out of 10 intensity intermittently, the patient had an associated nausea and vomiting no diarrhea no dietary transgressions have been reported. The patient denied any travels outside this area. Patient unfortunately has a history of an umbilical hernia repair with a mesh which most likely is the culprit for the bowel obstruction that is noted on imaging studies. Patient was taken to the OR by her surgical pathologist quite prompt and she has been seen postoperative. At the time of this note the patient is in no acute distress she is quite happy that her NG tube has been discontinued. Patient denied any fever chills diaphoresis no headache no upper respiratory tract infection symptoms no cough sputum production no chest pain or palpitations have been voiced. The patient denies any urinary symptoms, patient feels better compared to admission. Plan of care has been explained detail and all of her concerns were addressed to the best of my abilities 04/05 No acute events reported overnight, case discussed with nursing staff patient in no acute distress no complaints during my visitPatient had a reassurance has been provided very restless night and was unable to sleep due to her sleep apnea most likely. Diet has been advanced to clear liquids by systems consultant. All concerns addressed to the best of my abilities 04/06 Patient seems to be quite sleepy today again according to nursing staff during my encounter the patient was awake and with no complaints. Patient is ambulating and passing gases surgical pathologist recommendations were noted and greatly appreciated. Plan of care discussed with nursing staff, renal dysfunction was noted electrolytes and urine were requested as well as a renal ultrasound. Patient was given fluid resuscitation and nephrology was consulted. 04/07/2020 Patient quite nauseous, no bowel sounds, says she has passed gas but does not feel well, renal function noted and improved. Reassurance provided, discussed with nursing staff 04/08/2020 No acute events reported overnight, case discussed with nursing staff patient in no acute distress no complaints during my visit family members at bedside, imaging studies were reassuring laboratory data as well recommendations from systems consultant surgical and nephrology appreciated 04/09/2020 Patient laying in bed in no acute distress. She has finished eating some breakfast, she seems to be improved compared to yesterday, I have encouraged more ambulation in anticipation for discharge hopefully within the next 24 to 48 hours 04/10/2020 Patient sitting in chair in no acute distress. Diet has been advanced and she has tolerated well, from the nephrology standpoint of view she is ready for discharge from our point of view as well. Just awaiting for final recommendations from surgery She will be following up in the outpatient setting for follow-up Assessment Assessment CT of the abdomen and pelvis IMPRESSION: 1. Small bowel obstruction secondary to a large infraumbilical hernia containing fat, a loop of small bowel and segment of transverse colon. The hernia sac measures 18 cm in maximum dimension. 2. Small fat-containing umbilical, periumbilical and supra umbilical hernias. PROCEDURE: RENAL COMPLETE BILATERAL EXAM: RENAL/RETROPERITONAL ULTRASOUND. HISTORY: Acute renal failure. COMPARISON: 04/03/2020. FINDINGS: Ultrasound of the kidneys, bladder and retroperitoneum was performed. Visualization was limited by habitus and abdominal bandaging. The right kidney measures 11.0 cm. Cortical thickness and echogenicity are grossly preserved. There is no hydronephrosis. The left kidney could not be visualized currently given scaring bowel gas and bandaging. The bladder is not visualized currently. Hyperechogenicity of the hepatic parenchyma is consistent with diffuse hepatic steatosis. IMPRESSION: 1. No hydronephrosis on the right. The left kidney cannot be visualized currently. The left kidney was unremarkable on recent CT. 2. Diffuse hepatic steatosis. Discharge Information Condition at Discharge: Improved Follow Up: Weeks Disposition/Orders: D/C to Home Scheduled Atorvastatin Calcium (Lipitor) 20 Mg Tablet, 1 TAB PO HS for cholesterol, #90 Ref 1 (Reported) Entered as Reported by: JANAE HURST on 04/03/201811 Last Action: Continued on 04/05/202051 by JOSE HARO MD Dulaglutide (Trulicity) 0.75 Mg/0.5 Ml Pen.injctr, 0.75 MG SQ WEEKLY for dm, (Reported) Entered as Reported by: JANAE HURST on 04/03/201811 Last Action: New Order on 04/03/201811 by JANAE HURST Insulin Aspart (Novolog) 100 Unit/1 Ml Cartridge, 25 UNIT SQ TIDAC for dm, (Reported) Entered as Reported by: JANAE HURST on 04/03/201811 Last Action: Converted on 04/05/202051 by JOSE HARO MD Insulin Glargine,Hum.rec.anlog (Lantus Solostar) 100 Unit/1 Ml Insuln.pen, 60 UNIT SQ QHS for dm, #15 Ref 3 (Reported) Entered as Reported by: JANAE HURST on 04/03/201811 Last Action: Converted on 04/05/202051 by JOSE HARO MD Lisinopril (Lisinopril) 20 Mg Tablet, 1 TAB PO DAILY for bp, #30 Ref 5 (Report ed) Entered as Reported by: JANAE HURST on 04/03/201811 Last Action: Continued on 04/05/202051 by JOSE HARO MD Scheduled PRN Hydrocodone Bit/Acetaminophen (Hydrocodone-Apap 5-325 ) 1 Tab Tablet, 1 TAB PO PRN Q6HRS PRN for MODERATE TO SEVERE PAIN for 3 Days, #12 Prescribed by: JG DOMINGUEZ MD on 04/10/20 1332 Justicifation of Admission Dx: Justifications for Admission: Justification of Admission Dx: N/A JG DOMINGUEZ MD Apr 10, 2020 13:38
--- NOTE | 2020-04-10 15:39 | NUR ---
Discharge Note: ANA LUISA PERALTA Discharge instructions and discharge home medications reviewed with patient and a copy given. All questions have been answered and understanding verbalized. The following instructions and handouts were given: Take home meds as instructed. Prescription for pain med not given, patient refused stating she's not in pain anymore. Wound care as instructed. Follow up with Dr. Kim in 2 weeks [phone] Watch out for redness, pus or drainage from the wound, fever and severe weakness. Follow up with PCP in a week. Discontinued lines and drains: peripheral IV intact, patient tolerated removal, no complications noted. Patient discharged to home with self-care via wheelchair accompanied by family members at 1410.
== END 2020-04-10 14:10 | disposition home or self-care (01) | DRG 353 ==
LOC: ER 06:45 → ED HOLD 09:15 → 4 NORTH 16:54
PROVIDERS: ADMIT Internal Medicine; ATTEND Internal Medicine
PROC: 0WJF4ZZ Inspection of Abdominal Wall, Percutaneous Endoscopic Approach (ICD-10-PCS; 2020-04-03)
PROC: 0WUF0JZ Supplement Abdominal Wall with Synthetic Substitute, Open Approach (ICD-10-PCS; principal; 2020-04-03 13:30)
DX: K91.30 Postprocedural intestinal obstruction, unspecified as to partial versus complete (principal); N17.0 Acute kidney failure with tubular necrosis; K43.0 Incisional hernia with obstruction, without gangrene; Z68.43 Body mass index [BMI] 50.0-59.9, adult; K42.0 Umbilical hernia with obstruction, without gangrene; E11.9 Type 2 diabetes mellitus without complications; E66.01 Morbid (severe) obesity due to excess calories; E86.9 Volume depletion, unspecified; G47.30 Sleep apnea, unspecified; I10 Essential (primary) hypertension; Z53.31 Laparoscopic surgical procedure converted to open procedure; Z79.4 Long term (current) use of insulin; Z82.49 Family history of ischemic heart disease and other diseases of the circulatory system; Z83.3 Family history of diabetes mellitus; Z20.828 Contact with and (suspected) exposure to other viral communicable diseases; Z90.49 Acquired absence of other specified parts of digestive tract; Y83.8 Other surgical procedures as the cause of abnormal reaction of the patient, or of later complication, without mention of misadventure at the time of the procedure
CPT/HCPCS: 36415; 36600; 74018; 74022; 74176; 76770; 80048; 80053; 81001; 82436; 82570; 82805; 82962; 83605; 83690; 83735; 84100; 84133; 84300; 84484; 85025; 85610; 85730; 87086; 87426; 88302; 93005; 94618; 94660; 96374; 96375; 96376; A7015; C1769; C1781; J0690; J0780; J1100; J1815; J2270; J2405; J2704; J3010; J3490; J7030; J7060; J7120; 99285-25; G0378; Q0169; U0003-CS